=== PATIENT | female | born 1930 | race Caucasian/White ===

== ENCOUNTER 2016-12-21 04:37 | Inpatient (IN) | payer MEDICARE ==
[2016-12-21] MEDS ORDERED: Sodium Chloride 0.9% 500 ML IV ONE ×2 (04:58→10:55)
[2016-12-21] MEDS ORDERED: Sodium Chloride 0.9% 1,000 ML IV ONE (05:59)
--- NOTE | 2016-12-21 07:05 | ER ---
DATE SEEN: 12/21/2016 CHIEF COMPLAINT: Diarrhea. HISTORY OF PRESENT ILLNESS: This is an 86-year-old female who has had diarrhea since yesterday afternoon, several times a day with no blood in the stool, also associated with dry heaving and retching, but no obvious vomiting. She was previously in her usual state of health. She denies eating outside home, though, she has been getting TV dinners. She has noted no recent fever or chills and no recent antibiotic use in the last 90 days. PAST MEDICAL HISTORY: Hypertension, type 2 diabetes, and MS. REVIEW OF SYSTEMS: All other systems were unremarkable. MEDICATIONS: Unable to obtain a complete list. PHYSICAL EXAMINATION: VITAL SIGNS: Her blood pressure is normal. Her pulse is 102 and temp 98.6. ENT: Negative. Dry mucous membranes. CHEST: Clear. ABDOMEN: Soft. Some tenderness was noted in the right lower quadrant. LABORATORY DATA: Initial white cell count 20,000. The electrolytes are pending. A stool C. diff is pending. IMPRESSION: Acute gastroenteritis. PLAN: I gave her 1 L of normal saline bolus and additional 500 mL, as we wait for the electrolytes and C. diff, and Dr. Luther will take over care at 0700 hours. Time seen 0600 hours. /[id number] ESTHER/BLOSSOM
[2016-12-21] MEDS ORDERED: Ondansetron 4 MG/2 ML SDV IVPUSH ONE (08:41)
--- NOTE | 2016-12-21 08:50 | EDM.PDOC ---
ED HPI GENERAL MEDICAL PROBLEM - General Chief Complaint: Gastrointestinal Problem Stated Complaint: ABD PAIN Time Seen by Provider: 12/21/16 08:20 Source of Information: Reports: Patient, Old Records, RN History Limitations: Reports: No Limitations - History of Present Illness INITIAL COMMENTS - FREE TEXT/NARRATIVE: 86 yo female came to the ER in the middle of the night and was seen and evaluated by Dr. Chu. Her initial complaint was diarrhea. There was no reported fever. She has nausea and no vomiting. Since her arrival until the present has been unable to provider additional stool for testing. She has no uinary sx's. No rash. No cough. Onset: Today Onset Date: 12/21/16 Onset Time: 03:00 Duration: Hour(s): Location: Reports: Abdomen (no pain) Severity: Moderate Improves with: Reports: None Worsens with: Reports: None Context: Reports: Other (unknown) Associated Symptoms: Reports: Nausea/Vomiting (no vomiting yet), Weakness. 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) (none) - Related Data Allergies Allergy/AdvReac Type Severity Reaction Status Date / Time No Known Allergies Allergy Verified 12/21/16 04:49 Home Meds: Home Meds Amitriptyline [Elavil] 10 mg PO BEDTIME 12/21/16 [History] Amitriptyline [Elavil] 10 mg PO BEDTIME PRN 12/21/16 [History] Aspirin [Ecotrin] 325 - 650 mg PO DAILY PRN 12/21/16 [History] Aspirin [Ecotrin] 325 mg PO DAILY 12/21/16 [History] Insulin Lispro Prot/Lispro [HumaLOG Mix 75-25] 40 units SUBCUT BIDMEALS [History] Lisinopril/Hydrochlorothiazide [Lisinopril-Hctz 20-12.5 mg Tab] 2 tab PO DAILY 12/21/16 [History] Multivitamin [One Daily] 1 tab PO DAILY 12/21/16 [History] amLODIPine [Norvasc] 5 mg PO DAILY 12/21/16 [History] Past Medical History HEENT History: Reports: Cataract, Hard of Hearing Cardiovascular History: Reports: High Cholesterol, Hypertension, SOB on Exertion 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: Neurological History: Reports: MS Endocrine/Metabolic History: Reports: Diabetes, Type II, Obesity/BMI 30+ - Past Surgical History HEENT Surgical History: Reports: Cataract Surgery Other HEENT Surgeries/Procedures: B/L cataract surgery in 2014 Social & Family History - Family History Family Medical History: Noncontributory - Tobacco Use Smoking Status *Q: Former Smoker Years of Tobacco use: 30 Used Tobacco, but Quit: Yes Month Tobacco Last Used: "college" - Caffeine Use Caffeine Use: Reports: Coffee - Alcohol Use Days Per Week of Alcohol Use: 0 - Recreational Drug Use Recreational Drug Use: No ED ROS GENERAL - Review of Systems Review Of Systems: See Below Constitutional: Reports: Weakness. Denies: Fever HEENT: Reports: No Symptoms Respiratory: Reports: No Symptoms Cardiovascular: Reports: No Symptoms Endocrine: Reports: No Symptoms GI/Abdominal: Reports: Diarrhea, Nausea. Denies: Abdominal Pain, Black Stool, Bloody Stool, Constipation, Distension, Flatus, Hematemesis, Hematochezia, Melena, Vomiting : Reports: No Symptoms Musculoskeletal: Reports: No Symptoms Skin: Reports: No Symptoms Neurological: Reports: No Symptoms Psychiatric: Reports: No Symptoms ED EXAM, GI/ABD - Physical Exam Exam: See Below Exam Limited By: No Limitations General Appearance: Alert, WD/WN, No Apparent Distress, Obese Eyes: Bilateral: Normal Appearance, EOMI Ears: Normal External Exam, Normal Canal, Hearing Grossly Normal Nose: Normal Inspection, Normal Mucosa, No Blood Throat/Mouth: Normal Inspection, Normal Lips, Normal Oropharynx, Normal Voice, No Airway Compromise Head: Atraumatic, Normocephalic Neck: Normal Inspection Respiratory/Chest: No Respiratory Distress, Lungs Clear, Normal Breath Sounds, No Accessory Muscle Use Cardiovascular: Regular Rate, Rhythm, No Edema GI/Abdominal Exam: Normal Bowel Sounds, Soft, Non-Tender, No Distention Back Exam: Normal Inspection. No: CVA Tenderness (R), CVA Tenderness (L) Extremities: Normal Inspection, Normal Range of Motion, Non-Tender, Pedal Edema (trace to both LE's below the knees.) Neurological: Alert, Oriented, CN II-XII Intact, Normal Cognition, No Motor/ Sensory Deficits Psychiatric: Normal Affect, Normal Mood Skin Exam: Warm, Dry, Intact, Normal Color, No Rash Lymphatic: No Adenopathy Course - Vital Signs Last Recorded V/S: Last Vital Signs Temp 36.6 C 12/21/16 18:27 Pulse 94 12/21/16 18:27 Resp 20 12/21/16 18:27 BP 140/85 12/21/16 18:27 Pulse Ox 94 L 12/21/16 18:27 - Orders/Labs/Meds Orders: Active Orders 24 hr Category Date Time Status CDIFF TOXIN A+B GROUP [OP] Stat Lab 12/21/16 05:17 Uncollected CULTURE BLOOD [BC] Urgent Lab 12/21/16 09:15 Received CULTURE BLOOD [BC] Urgent Lab 12/21/16 09:25 Results UA W/MICROSCOPIC [URIN] Stat Lab 12/21/16 08:45 Uncollected Sodium Chloride 0.9% [Normal Saline] 1,000 ml Med 12/21/16 13:30 Active IV ASDIRECTED Sodium Chloride 0.9% [Saline Flush] Med 12/21/16 13:50 Active 10 ml FLUSH ASDIRECTED PRN Blood Culture x2 Reflex Set [OM.PC] Urgent Oth 12/21/16 08:39 Ordered Saline Lock Insert [OM.PC] Routine Oth 12/21/16 13:50 Ordered Medication Orders Acetaminophen (Tylenol) 650 mg PO Q4H PRN PRN Reason: Pain (Mild 1-3)/fever Amitriptyline HCl (Elavil) 10 mg PO BEDTIME PRN PRN Reason: nerve pain Amlodipine Besylate (Norvasc) 5 mg PO DAILY [facility] Aspirin (Ecotrin) 325 mg PO DAILY [facility] Sodium Chloride (Normal Saline) 1,000 mls @ 500 mls/hr IV ASDIRECTED [facility] Last Admin: 12/21/16 13:50 Dose: 500 mls/hr Ciprofloxacin/Dextrose 400 mg/ (Premix) 200 mls @ 200 mls/hr IV Q24H [facility] Last Admin: 12/21/16 19:39 Dose: 200 mls/hr Metronidazole 500 mg/ Premix 100 mls @ 100 mls/hr IV Q8H [facility] Last Admin: 12/21/16 18:14 Dose: 100 mls/hr Sodium Chloride (Normal Saline) 1,000 mls @ 125 mls/hr IV ASDIRECTED [facility] Last Admin: 12/21/16 18:08 Dose: 125 mls/hr Sodium Chloride (Normal Saline) 1,000 mls @ 125 mls/hr IV ASDIRECTED [facility] Insulin Aspart (Novolog) 0 unit SUBCUT TIDMEALS [facility] Morphine Sulfate (Morphine) 2 mg IVPUSH Q2H PRN PRN Reason: Pain (severe 7-10) Oxycodone HCl (Oxycodone) 5 mg PO Q4H PRN PRN Reason: Pain (moderate 4-6) Sodium Chloride (Saline Flush) 10 ml FLUSH ASDIRECTED PRN PRN Reason: Keep Vein Open Last Admin: 12/21/16 13:51 Dose: 10 ml Sodium Chloride (Saline Flush) 10 ml FLUSH ASDIRECTED PRN PRN Reason: Keep Vein Open Labs: Laboratory Tests 12/21/16 12/21/16 12/21/16 Range/Units 05:20 05:25 05:25 WBC 20.1 H (4.5-12.0) X10-3/uL RBC 4.63 (3.23-5.20) x10(6)uL Hgb 13.8 (11.5-15.5) g/dL Hct 40.8 (30.0-51.3) % MCV 88.2 (80-96) fL MCH 29.8 (27.7-33.6) pg MCHC 33.8 (32.2-35.4) g/dL RDW 12.2 (11.5-15.5) % Plt Count 264 (125-369) X10(3)uL MPV 7.4 (7.4-10.4) fL Add Manual Diff Yes Neutrophils % (Manual) 90 H (46-82) % Band Neutrophils % 1 (0-6) % Lymphocytes % (Manual) 7 L (13-37) % Monocytes % (Manual) 2 L (4-12) % D-Dimer, Quantitative > 5000 H (100-400) ng/mL Sodium 136 (135-145) mmol/L Potassium 5.0 (3.5-5.3) mmol/L Chloride 104 (100-110) mmol/L Carbon Dioxide 20 L (23-29) mmol/L BUN 42 H (8-23) mg/dL Creatinine 2.1 H* (0.6-1.3) mg/dL Est Cr Clr Drug Dosing 14.93 mL/min Estimated GFR (MDRD) 22 L (>60) BUN/Creatinine Ratio 20.0 (9-20) Glucose 245 H (80-116) mg/dL Lactic Acid (0.5-2.2) mmol/L Calcium 9.2 (8.6-10.2) mg/dL Total Bilirubin 0.8 (0.1-1.3) mg/dL AST 31 H (5-27) IU/L ALT 31 H (14-26) IU/L Alkaline Phosphatase 51 L (56-112) IU/L Total Protein 7.1 (6.0-8.0) g/dL Albumin 3.7 (3.2-4.6) g/dL Globulin 3.4 g/dL Albumin/Globulin Ratio 1.1 12/21/16 12/21/16 12/21/16 Range/Units 09:25 10:20 12:55 WBC (4.5-12.0) X10-3/uL RBC (3.23-5.20) x10(6)uL Hgb (11.5-15.5) g/dL Hct (30.0-51.3) % MCV (80-96) fL MCH (27.7-33.6) pg MCHC (32.2-35.4) g/dL RDW (11.5-15.5) % Plt Count (125-369) X10(3)uL MPV (7.4-10.4) fL Add Manual Diff Neutrophils % (Manual) (46-82) % Band Neutrophils % (0-6) % Lymphocytes % (Manual) (13-37) % Monocytes % (Manual) (4-12) % D-Dimer, Quantitative (100-400) ng/mL Sodium (135-145) mmol/L Potassium (3.5-5.3) mmol/L Chloride (100-110) mmol/L Carbon Dioxide (23-29) mmol/L BUN (8-23) mg/dL Creatinine 1.9 H 1.8 H (0.6-1.3) mg/dL Est Cr Clr Drug Dosing 16.50 17.41 mL/min Estimated GFR (MDRD) 25 L 27 L (>60) BUN/Creatinine Ratio (9-20) Glucose (80-116) mg/dL Lactic Acid 1.6 (0.5-2.2) mmol/L Calcium (8.6-10.2) mg/dL Total Bilirubin (0.1-1.3) mg/dL AST (5-27) IU/L ALT (14-26) IU/L Alkaline Phosphatase (56-112) IU/L Total Protein (6.0-8.0) g/dL Albumin (3.2-4.6) g/dL Globulin g/dL Albumin/Globulin Ratio Meds: Medications Generic Name Dose Route Start Last Admin Trade Name Freq PRN Reason Stop Dose Admin Acetaminophen 650 mg 12/21/16 16:18 Tylenol PO Q4H PRN Pain (Mild 1-3)/fever Amitriptyline HCl 10 mg 12/21/16 19:55 Elavil PO BEDTIME PRN nerve pain Amlodipine Besylate 5 mg 12/22/16 09:00 Norvasc PO DAILY [facility] Aspirin 325 mg 12/22/16 09:00 Ecotrin PO DAILY [facility] Sodium Chloride 1,000 mls @ 500 mls/hr 12/21/16 13:30 12/21/16 13:50 Normal Saline IV 500 mls/hr ASDIRECTED J[facility]ETTE Administration Ciprofloxacin/Dextrose 400 mg/ 200 mls @ 200 mls/hr 12/21/16 18:00 12/21/16 19:39 Premix IV 200 mls/hr Q24H [facility] Administration Metronidazole 500 mg/ Premix 100 mls @ 100 mls/hr 12/21/16 16:30 12/21/16 18: 14 IV 100 mls/hr Q8H [facility] Administration Sodium Chloride 1,000 mls @ 125 mls/hr 12/21/16 16:30 12/21/16 18:08 Normal Saline IV 125 mls/hr ASDIRECTED [facility]TE Administration Sodium Chloride 1,000 mls @ 125 mls/hr 12/21/16 20:00 Normal Saline IV ASDIRECTED [facility] Insulin Aspart 0 unit 12/21/16 20:00 Novolog SUBCUT TIDMEALS [facility] Morphine Sulfate 2 mg 12/21/16 16:18 Morphine IVPUSH Q2H PRN Pain (severe 7-10) Oxycodone HCl 5 mg 12/21/16 16:18 Oxycodone PO Q4H PRN Pain (moderate 4-6) Sodium Chloride 10 ml 12/21/16 13:50 12/21/16 13:51 Saline Flush FLUSH 10 ml ASDIRECTED PRN Administration Keep Vein Open Sodium Chloride 10 ml 12/21/16 16:18 Saline Flush FLUSH ASDIRECTED PRN Keep Vein Open Discontinued Medications Generic Name Dose Route Start Last Admin Trade Name Bobbi PRN Reason Stop Dose Admin Sodium Chloride 500 mls @ 999 mls/hr 12/21/16 04:58 12/21/16 05:28 Normal Saline IV 12/21/16 05:28 999 mls/hr .BOLUS ONE Administration Sodium Chloride 1,000 mls @ 999 mls/hr 12/21/16 05:59 12/21/16 06:00 Normal Saline IV 12/21/16 06:59 999 mls/hr .BOLUS ONE Administration Sodium Chloride 1,000 mls @ 999 mls/hr 12/21/16 10:15 12/21/16 10:25 Normal Saline IV 150 mls/hr ASDIRECTED JULIETTE Administration Sodium Chloride 500 mls @ 1,000 mls/hr 12/21/16 10:55 12/21/16 11:11 Normal Saline IV 12/21/16 11:24 Not Given .BOLUS ONE Iopamidol 75 ml 12/21/16 13:43 12/21/16 13:45 Isovue-370 (76%) IV 12/21/16 13:44 75 ml ONETIME ONE Administration Ondansetron HCl 4 mg 12/21/16 08:41 12/21/16 08:46 Zofran IVPUSH 12/21/16 08:42 4 mg ONETIME ONE Administration Ondansetron HCl 4 mg 12/21/16 16:18 Zofran Odt PO Q4H PRN nausea, able to take PO - Radiology Interpretation Free Text/Narrative:: CXR-L base atelectasis, small pleural effusion, cannot R/O pneumonia or PE CT Results Date: 12/21/16 Departure - Departure Time of Disposition: 17:30 Disposition: Admitted As Inpatient 65 Condition: Fair Clinical Impression: Colitis, Elevated d-dimer Diarrhea Qualifiers: Diarrhea type: unspecified type Qualified Code(s): R19.7 - Diarrhea, unspecified Chronic renal failure Qualifiers: Chronic kidney disease stage: unspecified stage Qualified Code(s): N18.9 - Chronic kidney disease, unspecified - Discharge Information - My Orders Last 24 Hours: My Active Orders 12/21/16 08:39 Blood Culture x2 Reflex Set [OM.PC] Urgent 12/21/16 08:45 UA W/MICROSCOPIC [URIN] Stat 12/21/16 09:15 CULTURE BLOOD [BC] Urgent 12/21/16 09:25 CULTURE BLOOD [BC] Urgent 12/21/16 13:30 Sodium Chloride 0.9% [Normal Saline] 1,000 ml IV ASDIRECTED 12/21/16 13:50 Sodium Chloride 0.9% [Saline Flush] 10 ml FLUSH ASDIRECTED PRN Saline Lock Insert [OM.PC] Routine - Assessment/Plan Last 24 Hours: My Active Orders 12/21/16 08:39 Blood Culture x2 Reflex Set [OM.PC] Urgent 12/21/16 08:45 UA W/MICROSCOPIC [URIN] Stat 12/21/16 09:15 CULTURE BLOOD [BC] Urgent 12/21/16 09:25 CULTURE BLOOD [BC] Urgent 12/21/16 13:30 Sodium Chloride 0.9% [Normal Saline] 1,000 ml IV ASDIRECTED 12/21/16 13:50 Sodium Chloride 0.9% [Saline Flush] 10 ml FLUSH ASDIRECTED PRN Saline Lock Insert [OM.PC] Routine
[2016-12-21] MEDS ORDERED: Sodium Chloride 0.9% 1,000 ML IV SCH ×2 (10:15→13:30)
--- NOTE | 2016-12-21 10:26 | CR ---
INDICATION: Leukocytosis, mild hypoxia. CHEST (2 views): AP and lateral views of the chest were obtained portable and revealed evidence of exogenous obesity. The heart appears enlarged with LVE. No definite CHF is seen. Infiltrate and/or atelectasis and possibly pleuritis are suggested at the left lower lobe and lingula - particularly the lingula. Slightly heavy markings medially at the right lung base are noted of questionable significance. Flattening of diaphragm leaves, prominent AP diameter, and hyperaeration all suggest COPD. The aorta is tortuous with calcification in the arch. Diminished bone density is noted compatible with osteoporosis. Accentuated dorsal kyphosis upper thoracic spine noted. IMPRESSION: 1. Findings are compatible with pneumonia and pleuritis, possibly some atelectasis at the left lung base - lower lung field, mostly involving the lingula, but also felt to be present in the lower lobe. 2. Difficult to exclude minimal patchy pneumonia at the right medial lung base. 3. COPD. 4. ASHD with probable LVE. 5. Osteoporosis with kyphosis. 6. Exogenous obesity. Report was called to Dr. Luther at 0926 hours, 12/31/2016. [facility]
[2016-12-21] MEDS ORDERED: Iopamidol 755 Mg/ML 75 ML Bottle IV ONE (13:43)
[2016-12-21] MEDS: Sodium Chloride 0.9% 10 ML Syringe FLUSH PRN (13:51)
--- NOTE | 2016-12-21 15:23 | CT ---
INDICATION: High D-dimer 5,000, mild hypoxia. Abnormal chest x-ray, question PE. COMPUTERIZED TOMOGRAPHY ANGIOGRAPHY OF THE CHEST WITH CONTRAST FOR PULMONARY ARTERIES: Spiral 1.25-mm axial sections were obtained through the chest, abdomen, and pelvis, with oral and IV contrast (75 mL Isovue-370 at 3 mL per second), with sagittal and coronal reconstructions, 12/21/2016. No comparisons were available. Total Exam DLP = 2669.05 mGy-cm. Less than ideal opacification of the pulmonary arteries is obtained. However, no evidence of pulmonary embolus could be identified. There is a spiculated area of infiltration in the right upper lobe, likely due to focal pneumonia, but should be followed to clearing as neoplasia is difficult to entirely exclude. Patchy areas of infiltrate are also noted scattered about the left upper lobe and may represent areas of interstitial pneumonia and/or pulmonary edema. A similar appearance is noted in the lower lobes bilaterally, with some additional heavy markings in the lingula and middle lobe, which could be fibrotic and/or atelectatic. Another focal area of infiltration is noted in the right lower lobe, seen on axial image #109 and again this could represent a more focal area of pneumonia or even neoplasia. Again, follow-up to clearing is recommended. Calcifications are noted in the aorta, coronary arteries, and brachiocephalic arteries. The heart appeared somewhat enlarged. IMPRESSION: 1. Focal areas of infiltrate scattered about the lungs, most likely pneumonia, but cannot exclude CHF with acute pulmonary edema and possibly minimal interstitial lung edema. Findings should be correlated clinically with follow- up to clearing of these findings, as a few areas of infiltrate are slightly suspicious for neoplasia in the right lung. 2. ASHD with cardiomegaly and ASD aorta, as well as brachiocephalic vessels. 3. No evidence of pulmonary embolus was identified. INDICATION: Strong family history of pancreatic CA, high D-dimer, diarrhea. CT ABDOMEN AND PELVIS WITH CONTRAST: Examination of the abdomen and pelvis was obtained by CT as noted above. The gallbladder and appendix are absent, compatible with history of their removal. Diverticulosis coli is noted sigmoid/rectosigmoid area, without definite evidence of diverticulitis. No evidence of free air or obstruction was seen. There is thickening of the wall of the descending colon with a mild degree of pericolonic fat stranding, which suggests a significant degree of colitis, Crohn 's versus infectious. Some minimal free fluid in the pericolonic space is noted , in the distal descending area. No definite abscess formation was identified. The liver is unremarkable. The spleen appeared normal. The common bile duct was dilated, but normal in caliber for post cholecystectomy patient. The pancreas appears grossly normal with some fatty replacement suggested. The kidneys showed evidence of renal cortical scarring bilaterally, with a few probable benign cystic structures of small size bilaterally also noted. No significant retroperitoneal mass could be identified. Minimal retroperitoneal lymphadenopathy is noted, which is nonspecific. Calcifications are noted in the abdominal aorta, origins of the renal arteries especially the right origin of the celiac axis and superior mesenteric artery, with calcifications also noted in the iliac and femoral arteries. Degenerative changes and disk disease are noted at L5-S1 with vacuum disk phenomenon. Degenerative changes are noted in the mid to lower thoracic spine. No additional organomegaly, mass lesions, or free fluid collections were identified in the abdomen or pelvis. IMPRESSION: 1. Findings compatible with severe colitis are noted in the descending colon area, with pericolonic inflammatory process suggested, there being moderately extensive pericolonic fat stranding present, extending through the retrocolic gutter and into the upper middle pelvis area. 2. ASD. 3. Renal cortical scarring and minimal cysts. 4. Post cholecystectomy. 5. Post appendectomy. 6. Degenerative changes and disk disease L5-S1. CT PELVIS: Examination of the pelvis was obtained by CT, as noted above, and revealed evidence of diverticulosis, without definite evidence of diverticulitis in the sigmoid/rectosigmoid area. There is suggestion of a right inguinal hernia, including only fat. Descending colonic inflammation is noted extending into the upper pelvis. Report was called to Dr. Luther at 1409 hours, 12/21/2016. [facility]
[2016-12-21] MEDS ORDERED: Acetaminophen 325 MG Tab PO PRN (16:18)
[2016-12-21] MEDS ORDERED: Ondansetron 4 MG Tab.DIS PO PRN (16:18)
[2016-12-21] MEDS ORDERED: oxyCODONE 5 MG Tab PO PRN (16:18)
[2016-12-21] MEDS ORDERED: Sodium Chloride 0.9% 10 ML Syringe FLUSH PRN (16:18)
[2016-12-21] MEDS ORDERED: Morphine 2 MG/ML Syringe IVPUSH PRN (16:18)
[2016-12-21] MEDS ORDERED: Ciprofloxacin in D5W 400 MG in Premix Bag 1 BAG IV SCH ×2 (18:00)
[2016-12-21] MEDS: Sodium Chloride 0.9% 1,000 ML IV SCH (18:08)
[2016-12-21] MEDS: metroNIDAZOLE/Normal Saline 500 MG in Premix Bag 1 BAG IV SCH (18:14)
--- NOTE | 2016-12-21 19:47 | PCM.HP ---
H&P History of Present Illness - General Date of Service: 12/21/16 Admit Problem/Dx: Admission Diagnosis/Problem Admission Diagnosis/Problem Colitis presumed to be due to infection - History of Present Illness Initial Comments - Free Text/Narative: Patient is a 86-year-old female who is in remarkably good health for her age. She was feeling fairly well yesterday and went to [facility] to do some grocery shopping. When she came home she had profuse explosive diarrhea. She had watery stool with no blood, no mucus, mild abdominal cramping and pain, no nausea or vomiting. She felt weak and shaky. She had no fevers or chills. No chest pain, no shortness of breath, and had not been ill before this. She had no other pain and had had no upper respiratory symptoms. No lower respiratory symptoms. The diarrhea lasted until she came into the emergency department early this morning. She had no further stools today in the emergency department. Initial labs showed a d-dimer of greater than 5000 and a lactic acid of 1.6. The emergency room physician was concerned about the potential for blood clot so hydrated her and did a CT scan of the chest, abdomen, pelvis. This showed focal areas of infiltrate scattered about the lungs, possibly pneumonia or CHF. He did recommend that these be followed long-term because there was some potential concern for neoplasia. It also showed ASHD with cardiomegaly and ASD aorta as well as brachiocephalic vessels and no evidence of pulmonary embolus. The abdominal CT showed severe colitis noted in the descending colon with pericolonic inflammatory process suggested and moderately extensive pericolonic fat stranding present extending through the retrocolic gutter and into the upper middle pelvis area. There was also suggestion of a right inguinal hernia including only fat. At the time I saw the patient, she was actually fairly asymptomatic. She had no further diarrhea, no cramping. Was wondering if she could go home on oral medication. Past medical history: #1 multiple sclerosis, currently on no medications. #2 hypertension. #3 diabetes mellitus type 2, on Humalog mix 75/25. #4 right myocardial infarction 35 years ago. #5 hyperlipidemia which the patient has stopped treating because of her age. #6 morbid obesity. Social history: Patient lives at [facility] [address] alone. She is . She has one son who lives in [place]. 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 Family history: The patient's mother of CHF at 83. The patient's father of colon cancer 83. The patient had 5 siblings. She is the only one left. - Related Data Allergies/Adverse Reactions: Allergies Allergy/AdvReac Type Severity Reaction Status Date / Time No Known Allergies Allergy Verified 12/21/16 04:49 Home Medications: Home Meds Amitriptyline [Elavil] 10 mg PO BEDTIME 12/21/16 [History] Amitriptyline [Elavil] 10 mg PO BEDTIME PRN 12/21/16 [History] Aspirin [Ecotrin] 325 - 650 mg PO DAILY PRN 12/21/16 [History] Aspirin [Ecotrin] 325 mg PO DAILY 12/21/16 [History] Insulin Lispro Prot/Lispro [HumaLOG Mix 75-25] 40 units SUBCUT BIDMEALS [History] Lisinopril/Hydrochlorothiazide [Lisinopril-Hctz 20-12.5 mg Tab] 2 tab PO DAILY 12/21/16 [History] Multivitamin [One Daily] 1 tab PO DAILY 12/21/16 [History] amLODIPine [Norvasc] 5 mg PO DAILY 12/21/16 [History] Past Medical History HEENT History: Reports: Cataract, Hard of Hearing Cardiovascular History: Reports: High Cholesterol, Hypertension, SOB on Exertion 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: Neurological History: Reports: MS Endocrine/Metabolic History: Reports: Diabetes, Type II, Obesity/BMI 30+ - Past Surgical History HEENT Surgical History: Reports: Cataract Surgery Other HEENT Surgeries/Procedures: B/L cataract surgery in 2014 Social & Family History - Family History Family Medical History: Noncontributory - Tobacco Use Smoking Status *Q: Former Smoker Years of Tobacco use: 30 Used Tobacco, but Quit: No Month Tobacco Last Used: "college" Second Hand Smoke Exposure: No - Caffeine Use Caffeine Use: Reports: None - Alcohol Use Days Per Week of Alcohol Use: 0 - Recreational Drug Use Recreational Drug Use: No H&P Review of Systems - Review of Systems: Review Of Systems: ROS reveals no pertinent complaints other than HPI. Exam - Exam Exam: See Below - Vital Signs Vital Signs: Last Vital Signs Temp 36.6 C 12/21/16 18:27 Pulse 94 12/21/16 18:27 Resp 20 12/21/16 18:27 BP 140/85 12/21/16 18:27 Pulse Ox 94 L 12/21/16 18:27 Weight: 100.788 kg - Exam General: Alert, Oriented, Cooperative HEENT: PERRLA, Mucosa Moist & [place], Posterior Pharynx Clear, TMs Clear Neck: Supple Lungs: Clear to Auscultation, Normal Respiratory Effort Cardiovascular: Regular Rate, Regular Rhythm, Normal S1, Normal S2 GI/Abdominal Exam: Normal Bowel Sounds, Soft, Tender (Diffusely tender but most tenderness was in the left lower quadrant.) Back Exam: Normal Inspection Extremities: Pedal Edema (Trace pedal edema.) Neuro Extensive - Mental Status: Alert, Oriented x3 Psychiatric: Alert, Normal Affect, Normal Mood - Patient Data Result Diagrams: 12/21/16 05:25 12/21/16 12:55 *Q Meaningful Use (ADM) - VTE *Q VTE Criteria *Q: - Stroke *Q Stroke Criteria *Q: - AMI *Q AMI Criteria *Q: - Problem List (1) Colitis SNOMED Code(s): 82972867 ICD Code: K52.9 - NONINFECTIVE GASTROENTERITIS AND COLITIS, UNSPECIFIED Status: Acute Current Visit: Yes Problem Details: Infectious versus ischemic. I am concerned about the possibility of ischemic colitis. The patient' s CT scan seems out of proportion with the patient's symptoms. I'm going to admit the patient, keep her on clear liquids, IV antibiotics with Flagyl and Cipro, and see how she does clinically. With no blood in the stool, ischemic colitis is less likely. However her lack of pain seems less consistent with ischemic colitis which is typically pain out of proportion with examination. (2) CKD stage 3 due to type 2 diabetes mellitus SNOMED Code(s): 260159937465 ICD Code: E11.22 - TYPE 2 DIABETES MELLITUS W DIABETIC CHRONIC KIDNEY DISEASE ; N18.3 - CHRONIC KIDNEY DISEASE, STAGE 3 (MODERATE) Status: Acute Current Visit: Yes Problem Details: Patient received high IV contrast load today. We' ll recheck renal function in the morning. Continue fluids IV tonight. We will do sliding scale insulin until she is eating again. (3) Elevated d-dimer SNOMED Code(s): 531492401 ICD Code: R79.89 - OTHER SPECIFIED ABNORMAL FINDINGS OF BLOOD CHEMISTRY Status: Acute Current Visit: Yes Problem Details: May be related to inflammation of the bowel rather than clotting. No evidence of lower extremity DVT. Monitor. (4) DVT prophylaxis SNOMED Code(s): 373363882 ICD Code: [id number] - Status: Acute Current Visit: Yes Problem Details: Hold drugs until a.m. SCDs tonight. Problem List Initiated/Reviewed/Updated: Yes Orders Last 24hrs: Active Orders 24 hr Category Date Time Status Ciprofloxacin in D5W [Cipro in D5W 400 MG/200 ML] 400 Med 12/21/16 18:00 Active mg Premix Bag 1 bag IV Q24H Sodium Chloride 0.9% [Normal Saline] 1,000 ml Med 12/21/16 16:30 Active IV ASDIRECTED metroNIDAZOLE/Normal Saline [Flagyl 500 MG in NS 100 ML Med 12/21/16 16:30 Active ] 500 mg Premix Bag 1 bag IV Q8H Medication Orders Acetaminophen (Tylenol) 650 mg PO Q4H PRN PRN Reason: Pain (Mild 1-3)/fever Sodium Chloride (Normal Saline) 1,000 mls @ 500 mls/hr IV ASDIRECTED [facility] Last Admin: 12/21/16 13:50 Dose: 500 mls/hr Ciprofloxacin/Dextrose 400 mg/ (Premix) 200 mls @ 200 mls/hr IV Q24H [facility] Last Admin: 12/21/16 19:39 Dose: 200 mls/hr Metronidazole 500 mg/ Premix 100 mls @ 100 mls/hr IV Q8H [facility] Last Admin: 12/21/16 18:14 Dose: 100 mls/hr Sodium Chloride (Normal Saline) 1,000 mls @ 125 mls/hr IV ASDIRECTED [facility] Last Admin: 12/21/16 18:08 Dose: 125 mls/hr Morphine Sulfate (Morphine) 2 mg IVPUSH Q2H PRN PRN Reason: Pain (severe 7-10) Oxycodone HCl (Oxycodone) 5 mg PO Q4H PRN PRN Reason: Pain (moderate 4-6) Sodium Chloride (Saline Flush) 10 ml FLUSH ASDIRECTED PRN PRN Reason: Keep Vein Open Last Admin: 12/21/16 13:51 Dose: 10 ml Sodium Chloride (Saline Flush) 10 ml FLUSH ASDIRECTED PRN PRN Reason: Keep Vein Open
[2016-12-21] MEDS ORDERED: Amitriptyline 10 MG Tab PO PRN (19:55)
[2016-12-21] MEDS: Insulin Aspart 100 Units/ML 3 ML Pen SUBCUT SCH (20:33)
[2016-12-22] MEDS: metroNIDAZOLE/Normal Saline 500 MG in Premix Bag 1 BAG IV SCH ×3 (00:25→16:44)
[2016-12-22] MEDS: Sodium Chloride 0.9% 1,000 ML IV SCH ×2 (05:12→13:58)
[2016-12-22] MEDS: amLODIPine 5 MG Tab PO SCH (09:10)
[2016-12-22] MEDS: Insulin Aspart 100 Units/ML 3 ML Pen SUBCUT SCH ×3 (09:10→18:08)
[2016-12-22] MEDS: Aspirin 325 MG Tab.EC PO SCH (09:10)
--- NOTE | 2016-12-22 12:33 | PCM.PN ---
- General Info Date of Service: 12/22/16 Subjective Update: Patient is an 86-year-old female currently on hospital day #2 for colitis, favor infectious etiology. She is feeling fine today. No chest pain, no nausea, no vomiting, no diarrhea, no shortness of breath. She doesn't have an appetite yet. She is on clear liquids and tolerating this well. 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 Her chest CT yesterday showed patchy infiltrates that were suggestive of infectious etiology but recommendation was made to follow up in 2- [address] for clearing. Discussed that with the patient today ( see below). White count is 22,000 this morning which is slightly up from yesterday. Functional Status: Reports: Pain Controlled, Tolerating Diet, Ambulating, Urinating - Patient Data Vitals - Most Recent: Last Vital Signs Temp 36.8 C 12/22/16 09:00 Pulse 84 12/22/16 09:00 Resp 22 H 12/22/16 09:00 BP 116/49 L 12/22/16 09:10 Pulse Ox 94 L 12/22/16 09:00 Weight - Most Recent: 102.421 kg I&O - Last 24 Hours: Intake & Output 12/21/16 12/22/16 12/22/16 22:59 06:59 14:59 Intake Total 380 50 Output Total 150 Balance 380 -100 Lab Results Last 24 Hours: Laboratory Results - last 24 hr 12/21/16 12/22/16 12/22/16 Range/Units 21:28 03:15 06:35 WBC 22.4 H (4.5-12.0) X10-3/uL RBC 3.56 (3.23-5.20) x10(6)uL Hgb 11.2 L (11.5-15.5) g/dL Hct 31.4 (30.0-51.3) % MCV 88.3 (80-96) fL MCH 31.4 (27.7-33.6) pg MCHC 35.6 H (32.2-35.4) g/dL RDW 12.5 (11.5-15.5) % Plt Count 202 (125-369) X10(3)uL MPV 7.5 (7.4-10.4) fL Add Manual Diff Yes Neutrophils % (Manual) 86 H (46-82) % Lymphocytes % (Manual) 9 L (13-37) % Monocytes % (Manual) 5 (4-12) % Sodium (135-145) mmol/L Potassium (3.5-5.3) mmol/L Chloride (100-110) mmol/L Carbon Dioxide (23-29) mmol/L BUN (8-23) mg/dL Creatinine (0.6-1.3) mg/dL Est Cr Clr Drug Dosing mL/min Estimated GFR (MDRD) (>60) BUN/Creatinine Ratio (9-20) Glucose (80-116) mg/dL POC Glucose 324 H (80-116) mg/dL Calcium (8.6-10.2) mg/dL Total Bilirubin (0.1-1.3) mg/dL AST (5-27) IU/L ALT (14-26) IU/L Alkaline Phosphatase (56-112) IU/L Total Protein (6.0-8.0) g/dL Albumin (3.2-4.6) g/dL Globulin g/dL Albumin/Globulin Ratio Urine Color Yellow (YELLOW) Urine Appearance Slightly cloudy (CLEAR) Urine pH 5.0 (5.0-6.5) Ur Specific [place] 1.020 (1.010-1.025) Urine Protein Negative (NEGATIVE) mg/dL Urine Glucose (UA) 100 H (NEGATIVE) mg/dL Urine Ketones Negative (NEGATIVE) mg/dL Urine Occult Blood Moderate H (NEGATIVE) Urine Nitrite Negative (NEGATIVE) Urine Bilirubin Negative (NEGATIVE) Urine Urobilinogen Normal (NEGATIVE) mg/dL Ur Leukocyte Esterase Small H (NEGATIVE) Urine RBC 5-10 (0) Urine WBC 0-5 (0) Ur Squamous Epith Cells Few H (NS,R,O) Urine Bacteria Few H (NS) 12/22/16 12/22/16 12/22/16 Range/Units 06:35 07:38 11:53 WBC (4.5-12.0) X10-3/uL RBC (3.23-5.20) x10(6)uL Hgb (11.5-15.5) g/dL Hct (30.0-51.3) % MCV (80-96) fL MCH (27.7-33.6) pg MCHC (32.2-35.4) g/dL RDW (11.5-15.5) % Plt Count (125-369) X10(3)uL MPV (7.4-10.4) fL Add Manual Diff Neutrophils % (Manual) (46-82) % Lymphocytes % (Manual) (13-37) % Monocytes % (Manual) (4-12) % Sodium 135 (135-145) mmol/L Potassium 4.4 (3.5-5.3) mmol/L Chloride 106 (100-110) mmol/L Carbon Dioxide 19 L (23-29) mmol/L BUN 29 H D (8-23) mg/dL Creatinine 1.6 H (0.6-1.3) mg/dL Est Cr Clr Drug Dosing 19.59 mL/min Estimated GFR (MDRD) 30 L (>60) BUN/Creatinine Ratio 18.1 (9-20) Glucose 253 H (80-116) mg/dL POC Glucose 265 H 217 H (80-116) mg/dL Calcium 7.8 L (8.6-10.2) mg/dL Total Bilirubin 0.6 (0.1-1.3) mg/dL AST 28 H (5-27) IU/L ALT 22 D (14-26) IU/L Alkaline Phosphatase 42 L (56-112) IU/L Total Protein 5.6 L (6.0-8.0) g/dL Albumin 2.8 L (3.2-4.6) g/dL Globulin 2.8 g/dL Albumin/Globulin Ratio 1.0 Urine Color (YELLOW) Urine Appearance (CLEAR) Urine pH (5.0-6.5) Ur Specific [place] (1.010-1.025) Urine Protein (NEGATIVE) mg/dL Urine Glucose (UA) (NEGATIVE) mg/dL Urine Ketones (NEGATIVE) mg/dL Urine Occult Blood (NEGATIVE) Urine Nitrite (NEGATIVE) Urine Bilirubin (NEGATIVE) Urine Urobilinogen (NEGATIVE) mg/dL Ur Leukocyte Esterase (NEGATIVE) Urine RBC (0) Urine WBC (0) Ur Squamous Epith Cells (NS,R,O) Urine Bacteria (NS) Med Orders - Current: Current Medications Acetaminophen (Tylenol) 650 mg PO Q4H PRN PRN Reason: Pain (Mild 1-3)/fever Amitriptyline HCl (Elavil) 10 mg PO BEDTIME PRN PRN Reason: nerve pain Amlodipine Besylate (Norvasc) 5 mg PO DAILY [facility] Last Admin: 12/22/16 09:10 Dose: 5 mg Aspirin (Ecotrin) 325 mg PO DAILY [facility] Last Admin: 12/22/16 09:10 Dose: 325 mg Sodium Chloride (Normal Saline) 1,000 mls @ 500 mls/hr IV ASDIRECTED [facility] Last Admin: 12/21/16 13:50 Dose: 500 mls/hr Metronidazole 500 mg/ Premix 100 mls @ 100 mls/hr IV Q8H [facility] Last Admin: 12/22/16 09:09 Dose: 100 mls/hr Sodium Chloride (Normal Saline) 1,000 mls @ 125 mls/hr IV ASDIRECTED [facility] Last Admin: 12/21/16 18:08 Dose: 125 mls/hr Sodium Chloride (Normal Saline) 1,000 mls @ 125 mls/hr IV ASDIRECTED [facility] Last Admin: 12/22/16 05:12 Dose: 125 mls/hr Levofloxacin/Dextrose 750 mg/ (Premix) 150 mls @ 100 mls/hr IV Q48H [facility] Insulin Aspart (Novolog) 0 unit SUBCUT TIDMEALS [facility] Last Admin: 12/22/16 11:56 Dose: 2 unit Morphine Sulfate (Morphine) 2 mg IVPUSH Q2H PRN PRN Reason: Pain (severe 7-10) Oxycodone HCl (Oxycodone) 5 mg PO Q4H PRN PRN Reason: Pain (moderate 4-6) Sodium Chloride (Saline Flush) 10 ml FLUSH ASDIRECTED PRN PRN Reason: Keep Vein Open Last Admin: 12/21/16 13:51 Dose: 10 ml Sodium Chloride (Saline Flush) 10 ml FLUSH ASDIRECTED PRN PRN Reason: Keep Vein Open Discontinued Medications Sodium Chloride (Normal Saline) 500 mls @ 999 mls/hr IV .BOLUS ONE Stop: 12/21/16 05:28 Last Admin: 12/21/16 05:28 Dose: 999 mls/hr Sodium Chloride (Normal Saline) 1,000 mls @ 999 mls/hr IV .BOLUS ONE Stop: 12/21/16 06:59 Last Admin: 12/21/16 06:00 Dose: 999 mls/hr Sodium Chloride (Normal Saline) 1,000 mls @ 999 mls/hr IV ASDIRECTED [facility] Last Admin: 12/21/16 10:25 Dose: 150 mls/hr Sodium Chloride (Normal Saline) 500 mls @ 1,000 mls/hr IV .BOLUS ONE Stop: 12/21/16 11:24 Last Admin: 12/21/16 11:11 Dose: Not Given Ciprofloxacin/Dextrose 400 mg/ (Premix) 200 mls @ 200 mls/hr IV Q24H [facility] Last Admin: 12/21/16 19:39 Dose: 200 mls/hr Iopamidol (Isovue-370 (76%)) 75 ml IV ONETIME ONE Stop: 12/21/16 13:44 Last Admin: 12/21/16 13:45 Dose: 75 ml Ondansetron HCl (Zofran) 4 mg IVPUSH ONETIME ONE Stop: 12/21/16 08:42 Last Admin: 12/21/16 08:46 Dose: 4 mg Ondansetron HCl (Zofran Odt) 4 mg PO Q4H PRN PRN Reason: nausea, able to take PO - Exam General: Alert, Oriented, Cooperative, No Acute Distress HEENT: Pupils Equal, Pupils Reactive Neck: Supple Lungs: Clear to Auscultation, Normal Respiratory Effort Cardiovascular: Regular Rate, Regular Rhythm, No Murmurs GI/Abdominal Exam: Normal Bowel Sounds, Soft, No Distention, Tender (Mild tenderness in the left lower quadrant. No rebound, no guarding. No rigidity. Bowel sounds are present.) Extremities: Pedal Edema (Trace.) Psy/Mental Status: Alert, Normal Affect, Normal Mood - Problem List & Annotations (1) Colitis SNOMED Code(s): 97299391 Code(s): K52.9 - NONINFECTIVE GASTROENTERITIS AND COLITIS, UNSPECIFIED Status: Acute Current Visit: Yes Annotation/Comment:: Favor infectious etiology. I broadened the patient's antibiotics to Levaquin with Flagyl instead of Cipro today to give better coverage for potential respiratory infection. Continue clear fluids since white count has not started to trend down. (2) CKD stage 3 due to type 2 diabetes mellitus SNOMED Code(s): 287078344357 Code(s): E11.22 - TYPE 2 DIABETES MELLITUS W DIABETIC CHRONIC KIDNEY DISEASE ; N18.3 - CHRONIC KIDNEY DISEASE, STAGE 3 (MODERATE) Status: Acute Current Visit: Yes Annotation/Comment:: Renal function stable with creatinine today 1.6. Continue monitoring. Blood sugar 265. Continue sliding scale but will increase dose. (3) Elevated d-dimer SNOMED Code(s): 036003746 Code(s): R79.89 - OTHER SPECIFIED ABNORMAL FINDINGS OF BLOOD CHEMISTRY Status: Acute Current Visit: Yes Annotation/Comment:: May be related to inflammation of the bowel rather than clotting. No evidence of lower extremity DVT. Monitor. (4) HTN (hypertension) SNOMED Code(s): 51279678 Code(s): I10 - ESSENTIAL (PRIMARY) HYPERTENSION Status: Acute Current Visit: Yes Annotation/Comment:: Continue current meds. (5) Hyperlipidemia SNOMED Code(s): 22113093 Code(s): E78.5 - HYPERLIPIDEMIA, UNSPECIFIED Status: Acute Current Visit : Yes Annotation/Comment:: Untreated because of age. (6) DVT prophylaxis SNOMED Code(s): 561191409 Code(s): NJE8805 - Status: Acute Current Visit: Yes Annotation/Comment :: Heparin BID. Start tonight. - Problem List Review Problem List Initiated/Reviewed/Updated: Yes - My Orders Last 24 Hours: My Active Orders 12/21/16 16:30 Sodium Chloride 0.9% [Normal Saline] 1,000 ml IV ASDIRECTED metroNIDAZOLE/Normal Saline [Flagyl 500 MG in NS 100 ML] 500 mg Premix Bag 1 bag IV Q8H 12/21/16 19:55 Amitriptyline [Elavil] 10 mg PO BEDTIME PRN 12/21/16 20:00 Insulin Aspart [NovoLOG] See Dose Instructions SUBCUT TIDMEALS Sodium Chloride 0.9% [Normal Saline] 1,000 ml IV ASDIRECTED 12/22/16 09:00 Aspirin [Ecotrin] 325 mg PO DAILY amLODIPine [Norvasc] 5 mg PO DAILY 12/22/16 18:00 Levofloxacin/Dextrose 5%-Water [Levaquin in D5W 750 MG/150 ML] 750 mg Premix Bag 1 bag IV Q48H
[2016-12-22] MEDS: Levofloxacin/Dextrose 5%-Water 750 MG in Premix Bag 1 BAG IV SCH (19:03)
[2016-12-22] MEDS: Heparin Sodium 5,000 Units/ML Vial SUBCUT SCH (21:14)
[2016-12-23] MEDS: metroNIDAZOLE/Normal Saline 500 MG in Premix Bag 1 BAG IV SCH ×3 (01:03→16:08)
[2016-12-23] MEDS: Sodium Chloride 0.9% 1,000 ML IV SCH (01:08)
[2016-12-23] MEDS: Insulin Aspart 100 Units/ML 3 ML Pen SUBCUT SCH ×3 (08:02→18:32)
[2016-12-23] MEDS: amLODIPine 5 MG Tab PO SCH (09:50)
[2016-12-23] MEDS: Aspirin 325 MG Tab.EC PO SCH (09:50)
[2016-12-23] MEDS: Heparin Sodium 5,000 Units/ML Vial SUBCUT SCH ×2 (09:51→20:10)
[2016-12-23] MEDS: Sodium Chloride 0.9% 10 ML Syringe FLUSH PRN ×2 (11:24→16:08)
--- NOTE | 2016-12-23 14:07 | CR ---
INDICATION: Follow-up COPD/shortness of breath. CHEST: PA and lateral views of the chest 12/23/2016 were compared with 2016. An appearance of increasing pleuroparenchymal changes at the left lung base, compatible with progressive pneumonia and pleuritis. There again is difficulty in exclude pneumonia and pleuritis at the right lung base. Findings remain compatible with COPD, ASHD with cardiomegaly, osteoporosis with kyphosis and DJD, as well as exogenous obesity. IMPRESSION: Appearance of increasing infiltration at the lung bases, especially on the left with significant increase in pleural effusion. MTDD
--- NOTE | 2016-12-23 17:46 | PCM.PN ---
- General Info Date of Service: 12/23/16 Functional Status: Reports: Pain Controlled, Ambulating, Urinating (requently), Incentive Spirometry - Review of Systems General: Reports: Weakness, Fatigue, Malaise. Denies: Appetite HEENT: Reports: No Symptoms Pulmonary: Reports: Shortness of Breath (with activity) Cardiovascular: Reports: Dyspnea on Exertion, Edema. Denies: Chest Pain, Palpitations, Orthopnea, Lightheadedness Gastrointestinal: Reports: Constipation, Decreased Appetite, Flatus, Nausea. Denies: Abdominal Pain, Diarrhea, Vomiting Genitourinary: Reports: Frequency. Denies: Burning, Flank Pain Musculoskeletal: Reports: No Symptoms Skin: Reports: No Symptoms Neurological: Reports: No Symptoms Psychiatric: Reports: No Symptoms - Patient Data Vitals - Most Recent: Last Vital Signs Temp 98.2 F 12/23/16 13:00 Pulse 98 12/23/16 13:00 Resp 18 12/23/16 13:00 BP 124/64 12/23/16 13:00 Pulse Ox 91 L 12/23/16 13:00 Weight - Most Recent: 103.464 kg I&O - Last 24 Hours: Intake & Output 12/23/16 12/23/16 12/23/16 06:59 14:59 22:59 Intake Total 855 700 240 Output Total 900 700 Balance -45 0 240 Lab Results Last 24 Hours: Laboratory Results - last 24 hr 12/22/16 12/22/16 12/23/16 Range/Units 18:46 21:19 05:00 WBC (4.5-12.0) X10-3/uL RBC (3.23-5.20) x10(6)uL Hgb (11.5-15.5) g/dL Hct (30.0-51.3) % MCV (80-96) fL MCH (27.7-33.6) pg MCHC (32.2-35.4) g/dL RDW (11.5-15.5) % Plt Count (125-369) X10(3)uL MPV (7.4-10.4) fL Add Manual Diff Neutrophils % (Manual) (46-82) % Lymphocytes % (Manual) (13-37) % Monocytes % (Manual) (4-12) % Eosinophils % (Manual) (0-5) % Sodium (135-145) mmol/L Potassium (3.5-5.3) mmol/L Chloride (100-110) mmol/L Carbon Dioxide (23-29) mmol/L BUN (8-23) mg/dL Creatinine (0.6-1.3) mg/dL Est Cr Clr Drug Dosing mL/min Estimated GFR (MDRD) (>60) BUN/Creatinine Ratio (9-20) Glucose (80-116) mg/dL POC Glucose 243 H 206 H (80-116) mg/dL Calcium (8.6-10.2) mg/dL Total Bilirubin (0.1-1.3) mg/dL AST (5-27) IU/L ALT (14-26) IU/L Alkaline Phosphatase (56-112) IU/L Total Protein (6.0-8.0) g/dL Albumin (3.2-4.6) g/dL Globulin g/dL Albumin/Globulin Ratio Urine Color Yellow (YELLOW) Urine Appearance Clear (CLEAR) Urine pH 5.0 (5.0-6.5) Ur Specific Frannie 1.010 (1.010-1.025) Urine Protein Trace (NEGATIVE) mg/dL Urine Glucose (UA) Normal (NEGATIVE) mg/dL Urine Ketones 15 H (NEGATIVE) mg/dL Urine Occult Blood Moderate H (NEGATIVE) Urine Nitrite Negative (NEGATIVE) Urine Bilirubin Negative (NEGATIVE) Urine Urobilinogen Normal (NEGATIVE) mg/dL Ur Leukocyte Esterase Negative (NEGATIVE) Urine RBC 5-10 (0) Urine WBC 0-5 (0) Ur Squamous Epith Cells Few H (NS,R,O) Urine Bacteria Few H (NS) 12/23/16 12/23/16 12/23/16 Range/Units 06:55 06:55 11:28 WBC 15.4 H (4.5-12.0) X10-3/uL RBC 3.93 (3.23-5.20) x10(6)uL Hgb 12.0 (11.5-15.5) g/dL Hct 35.0 (30.0-51.3) % MCV 89.3 (80-96) fL MCH 30.5 (27.7-33.6) pg MCHC 34.2 (32.2-35.4) g/dL RDW 12.3 (11.5-15.5) % Plt Count 235 (125-369) X10(3)uL MPV 7.3 L (7.4-10.4) fL Add Manual Diff Yes Neutrophils % (Manual) 74 (46-82) % Lymphocytes % (Manual) 17 (13-37) % Monocytes % (Manual) 8 (4-12) % Eosinophils % (Manual) 1 (0-5) % Sodium 136 (135-145) mmol/L Potassium 4.6 (3.5-5.3) mmol/L Chloride 110 (100-110) mmol/L Carbon Dioxide 18 L (23-29) mmol/L BUN 24 H (8-23) mg/dL Creatinine 1.3 (0.6-1.3) mg/dL Est Cr Clr Drug Dosing 24.11 mL/min Estimated GFR (MDRD) 39 L (>60) BUN/Creatinine Ratio 18.5 (9-20) Glucose 226 H (80-116) mg/dL POC Glucose 221 H (80-116) mg/dL Calcium 8.1 L (8.6-10.2) mg/dL Total Bilirubin 0.5 (0.1-1.3) mg/dL AST 38 H D (5-27) IU/L ALT 23 (14-26) IU/L Alkaline Phosphatase 51 L (56-112) IU/L Total Protein 6.7 (6.0-8.0) g/dL Albumin 2.9 L (3.2-4.6) g/dL Globulin 3.8 g/dL Albumin/Globulin Ratio 0.8 Urine Color (YELLOW) Urine Appearance (CLEAR) Urine pH (5.0-6.5) Ur Specific Frannie (1.010-1.025) Urine Protein (NEGATIVE) mg/dL Urine Glucose (UA) (NEGATIVE) mg/dL Urine Ketones (NEGATIVE) mg/dL Urine Occult Blood (NEGATIVE) Urine Nitrite (NEGATIVE) Urine Bilirubin (NEGATIVE) Urine Urobilinogen (NEGATIVE) mg/dL Ur Leukocyte Esterase (NEGATIVE) Urine RBC (0) Urine WBC (0) Ur Squamous Epith Cells (NS,R,O) Urine Bacteria (NS) Jack Results Last 24 Hours: Microbiology 12/26/16 17:15 Stool / Feces Stool Occult Blood (JACK) - Final-positive 12/25/16 14:30 Stool / Feces Clostridium difficile Toxin A&B (M) - Final NEGATIVE CDIFF TOXIN 12/21/16 09:25 Blood - Venous - Lab Draw Aerobic Blood Culture - Final NO GROWTH AFTER 5 DAYS 12/21/16 09:25 Blood - Venous - Lab Draw Anaerobic Blood Culture - Final 12/21/16 09:15 Blood - Venous Aerobic Blood Culture - Final NO GROWTH AFTER 5 DAYS 12/21/16 09:15 Blood - Venous Anaerobic Blood Culture - Final NO GROWTH AFTER 5 DAYS Med Orders - Current: Current Medications Acetaminophen (Tylenol) 650 mg PO Q4H PRN PRN Reason: Pain (Mild 1-3)/fever Amitriptyline HCl (Elavil) 10 mg PO BEDTIME PRN PRN Reason: nerve pain Amlodipine Besylate (Norvasc) 5 mg PO DAILY [facility] Last Admin: 12/23/16 09:50 Dose: 5 mg Aspirin (Ecotrin) 325 mg PO DAILY [facility] Last Admin: 12/23/16 09:50 Dose: 325 mg Heparin Sodium (Porcine) (Heparin Sodium) 5,000 units SUBCUT Q12H [facility] Last Admin: 12/23/16 09:51 Dose: 5,000 units Sodium Chloride (Normal Saline) 1,000 mls @ 500 mls/hr IV ASDIRECTED [facility] Last Admin: 12/21/16 13:50 Dose: 500 mls/hr Metronidazole 500 mg/ Premix 100 mls @ 100 mls/hr IV Q8H [facility] Last Admin: 12/23/16 16:08 Dose: 100 mls/hr Levofloxacin/Dextrose 750 mg/ (Premix) 150 mls @ 100 mls/hr IV Q48H [facility] Last Admin: 12/22/16 19:03 Dose: 100 mls/hr Insulin Aspart (Novolog) 0 unit SUBCUT TIDMEALS [facility] Last Admin: 12/23/16 11:51 Dose: 6 unit Oxycodone HCl (Oxycodone) 5 mg PO Q4H PRN PRN Reason: Pain (moderate 4-6) Sodium Chloride (Saline Flush) 10 ml FLUSH ASDIRECTED PRN PRN Reason: Keep Vein Open Last Admin: 12/23/16 16:08 Dose: 10 ml Discontinued Medications Sodium Chloride (Normal Saline) 500 mls @ 999 mls/hr IV .BOLUS ONE Stop: 12/21/16 05:28 Last Admin: 12/21/16 05:28 Dose: 999 mls/hr Sodium Chloride (Normal Saline) 1,000 mls @ 999 mls/hr IV .BOLUS ONE Stop: 12/21/16 06:59 Last Admin: 12/21/16 06:00 Dose: 999 mls/hr Sodium Chloride (Normal Saline) 1,000 mls @ 999 mls/hr IV ASDIRECTED [facility] Last Admin: 12/21/16 10:25 Dose: 150 mls/hr Sodium Chloride (Normal Saline) 500 mls @ 1,000 mls/hr IV .BOLUS ONE Stop: 12/21/16 11:24 Last Admin: 12/21/16 11:11 Dose: Not Given Ciprofloxacin/Dextrose 400 mg/ (Premix) 200 mls @ 200 mls/hr IV Q24H [facility] Last Admin: 12/21/16 19:39 Dose: 200 mls/hr Sodium Chloride (Normal Saline) 1,000 mls @ 125 mls/hr IV ASDIRECTED [facility] Last Admin: 12/22/16 13:58 Dose: 125 mls/hr Sodium Chloride (Normal Saline) 1,000 mls @ 125 mls/hr IV ASDIRECTED [facility] Last Admin: 12/23/16 01:08 Dose: 125 mls/hr Iopamidol (Isovue-370 (76%)) 75 ml IV ONETIME ONE Stop: 12/21/16 13:44 Last Admin: 12/21/16 13:45 Dose: 75 ml Morphine Sulfate (Morphine) 2 mg IVPUSH Q2H PRN PRN Reason: Pain (severe 7-10) Ondansetron HCl (Zofran) 4 mg IVPUSH ONETIME ONE Stop: 12/21/16 08:42 Last Admin: 12/21/16 08:46 Dose: 4 mg Ondansetron HCl (Zofran Odt) 4 mg PO Q4H PRN PRN Reason: nausea, able to take PO Sodium Chloride (Saline Flush) 10 ml FLUSH ASDIRECTED PRN PRN Reason: Keep Vein Open - Exam Quality Assessment: Supplemental Oxygen, DVT Prophylaxis. No: Skin Breakdown General: Alert, Oriented, Cooperative, No Acute Distress HEENT: No: Mucous Membr. Moist/[place] Neck: Supple Lungs: Decreased Breath Sounds, Rales (minimal bilat). No: Wheezing Cardiovascular: Regular Rate, Regular Rhythm GI/Abdominal Exam: Soft, Non-Tender, No Distention. No: Normal Bowel Sounds, Guarding, Rigid (Female) Exam: Normal External Exam Back Exam: Normal Inspection. No: Paraspinal Tenderness, Vertebral Tenderness Extremities: Non-Tender, Pedal Edema (trace ) Skin: Dry, Intact. No: Rash Neurological: No New Focal Deficit, Normal Speech, Normal Tone Psy/Mental Status: Normal Affect (very pleasant), Normal Mood - Problem List & Annotations (1) CAP (community acquired pneumonia) SNOMED Code(s): 357073807 Code(s): J18.9 - PNEUMONIA, UNSPECIFIED ORGANISM Status: Acute (2) Colitis SNOMED Code(s): 09281354 Code(s): K52.9 - NONINFECTIVE GASTROENTERITIS AND COLITIS, UNSPECIFIED Status: Acute (3) Dehydration, moderate SNOMED Code(s): 4266700478640 Code(s): E86.0 - DEHYDRATION Status: Acute (4) Diarrhea SNOMED Code(s): 71906710 Code(s): R19.7 - DIARRHEA, UNSPECIFIED Status: Acute Qualifiers: Diarrhea type: unspecified type Qualified Code(s): R19.7 - Diarrhea, unspecified (5) Elevated d-dimer SNOMED Code(s): 073248735 Code(s): R79.89 - OTHER SPECIFIED ABNORMAL FINDINGS OF BLOOD CHEMISTRY Status: Acute (6) Microscopic hematuria SNOMED Code(s): 566515594 Code(s): R31.29 - OTHER MICROSCOPIC HEMATURIA Status: Acute (7) Type 2 DM with CKD and hypertension SNOMED Code(s): 98540894 Code(s): E11.22 - TYPE 2 DIABETES MELLITUS W DIABETIC CHRONIC KIDNEY DISEASE ; I12.9 - HYPERTENSIVE CHRONIC KIDNEY DISEASE W STG 1-4/UNSP CHR KDNY Status: Acute (8) CKD stage 3 due to type 2 diabetes mellitus SNOMED Code(s): 420614884598 Code(s): E11.22 - TYPE 2 DIABETES MELLITUS W DIABETIC CHRONIC KIDNEY DISEASE ; N18.3 - CHRONIC KIDNEY DISEASE, STAGE 3 (MODERATE) Status: Chronic (9) HTN (hypertension) SNOMED Code(s): 94026866 Code(s): I10 - ESSENTIAL (PRIMARY) HYPERTENSION Status: Chronic Annotation/Comment:: Continue current meds. (10) Hyperlipidemia SNOMED Code(s): 91377183 Code(s): E78.5 - HYPERLIPIDEMIA, UNSPECIFIED Status: Chronic Annotation/ Comment:: Untreated because of age. - Problem List Review Problem List Initiated/Reviewed/Updated: Yes - My Orders Last 24 Hours: My Active Orders 12/23/16 09:29 Convert IV to Saline Lock [OM.PC] Routine 12/23/16 17:42 GLUCOSE,POC [POC] Routine 12/23/16 Lunch Emmet Diet [DIET] - Assessment Assessment:: please see above. - Plan Plan:: will try to get her appetite up and have her up and moving around a bit more. weight is up. some rales. not sleeping at night due to frequent urination. would like to consider marie. continue o2 and nebs for cap along with IS as demonstrated. she sits up alot which is good. still weak. no since here. white count improving. will continue current cares. will plan on getting her up and about more as her strength improves. pt/ot on board. she is independent living so want to get her back as close to baseline as possible. plan to repeat ct abdomen with oral and iv contrast in a few days. sooner if needed. Rosangela explained dosing and type of insulin with her as she is nervous due to the therapeutic substitution and she agrees. continue adjusting as necessary in house. all questions answered and she agrees to current cares. Anticipate stay minimal 48-72h.
[2016-12-24] MEDS: metroNIDAZOLE/Normal Saline 500 MG in Premix Bag 1 BAG IV SCH ×3 (00:45→16:42)
[2016-12-24] MEDS: Insulin Aspart 100 Units/ML 3 ML Pen SUBCUT SCH ×6 (07:59→19:08)
[2016-12-24] MEDS: amLODIPine 5 MG Tab PO SCH (08:12)
[2016-12-24] MEDS: Heparin Sodium 5,000 Units/ML Vial SUBCUT SCH ×2 (08:13→20:39)
[2016-12-24] MEDS: Aspirin 325 MG Tab.EC PO SCH (08:13)
[2016-12-24] MEDS: Sodium Chloride 0.9% 250 ML IV SCH (09:30)
[2016-12-24] MEDS: Sodium Chloride 0.9% 10 ML Syringe FLUSH PRN (11:45)
[2016-12-24] MEDS ORDERED: Lisinopril 20 MG Tab ONE (13:21)
[2016-12-24] MEDS ORDERED: Hydrochlorothiazide 12.5 MG Cap ONE (13:21)
[2016-12-24] MEDS: Hydrochlorothiazide/Lisinopril 12.5-20 MG Tab PO SCH (13:30)
[2016-12-24] MEDS: Levofloxacin/Dextrose 5%-Water 750 MG in Premix Bag 1 BAG IV SCH (17:57)
[2016-12-24] MEDS ORDERED: Insulin Detemir 100 Units/ML 3 ML Pen SUBCUT SCH (21:00)
[2016-12-25] MEDS: metroNIDAZOLE/Normal Saline 500 MG in Premix Bag 1 BAG IV SCH ×3 (01:18→17:11)
[2016-12-25] MEDS ORDERED: Furosemide 40 MG/4 ML VIAL IVPUSH ONE ×2 (01:46→10:54)
[2016-12-25] MEDS: Insulin Aspart 100 Units/ML 3 ML Pen SUBCUT SCH ×3 (08:54→17:17)
[2016-12-25] MEDS: Heparin Sodium 5,000 Units/ML Vial SUBCUT SCH ×2 (08:59→20:18)
[2016-12-25] MEDS ORDERED: Hydrochlorothiazide/Lisinopril 12.5-20 MG Tab PO SCH (09:00)
[2016-12-25] MEDS ORDERED: Lisinopril 20 MG Tab ONE (09:04)
[2016-12-25] MEDS ORDERED: Hydrochlorothiazide 12.5 MG Cap ONE (09:05)
[2016-12-25] MEDS: Aspirin 325 MG Tab.EC PO SCH (09:16)
[2016-12-25] MEDS: Hydrochlorothiazide/Lisinopril 12.5-20 MG Tab PO SCH (09:19)
[2016-12-25] MEDS: Multivitamin Tab PO SCH (09:19)
[2016-12-25] MEDS: amLODIPine 5 MG Tab PO SCH (09:19)
[2016-12-25] MEDS: Sodium Chloride 0.9% 10 ML Syringe FLUSH PRN (12:15)
[2016-12-25] MEDS: Sodium Chloride 0.9% 250 ML IV SCH (17:10)
[2016-12-25] MEDS: Zolpidem 5 MG Tab PO SCH (20:22)
[2016-12-25] MEDS ORDERED: Insulin Detemir 100 Units/ML 3 ML Pen SUBCUT SCH (21:00)
[2016-12-26] MEDS: metroNIDAZOLE/Normal Saline 500 MG in Premix Bag 1 BAG IV SCH ×4 (00:56→23:41)
[2016-12-26] MEDS: Insulin Aspart 100 Units/ML 3 ML Pen SUBCUT SCH ×3 (08:02→17:27)
[2016-12-26] MEDS: Heparin Sodium 5,000 Units/ML Vial SUBCUT SCH ×2 (08:04→20:45)
[2016-12-26] MEDS: amLODIPine 5 MG Tab PO SCH (08:04)
[2016-12-26] MEDS: Aspirin 325 MG Tab.EC PO SCH (08:04)
[2016-12-26] MEDS: Hydrochlorothiazide/Lisinopril 12.5-20 MG Tab PO SCH (09:08)
[2016-12-26] MEDS: Multivitamin Tab PO SCH (09:08)
[2016-12-26] MEDS ORDERED: Diatrizoate Meglumine/Diatrizoate Sodium 37% 30 ML Bottle PO ONE (12:30)
--- NOTE | 2016-12-26 13:13 | PCM.PN ---
- General Info Date of Service: 12/24/16 Functional Status: Reports: Tolerating Diet, Ambulating, Urinating, Incentive Spirometry - Review of Systems Systems Review Comment:: General: Reports: Weakness, Fatigue, Malaise. Denies: Appetite HEENT: Reports: No Symptoms Pulmonary: Reports: Shortness of Breath (with activity) Cardiovascular: Reports: Dyspnea on Exertion, Edema. Denies: Chest Pain, Palpitations, Orthopnea, Lightheadedness Gastrointestinal: Reports: Constipation, Decreased Appetite, Flatus, Nausea. Denies: Abdominal Pain, Diarrhea, Vomiting Genitourinary: Reports: Frequency. Denies: Burning, Flank Pain Musculoskeletal: Reports: No Symptoms Skin: Reports: No Symptoms Neurological: Reports: No Symptoms Psychiatric: Reports: No Symptoms - Patient Data Vitals - Most Recent: Last Vital Signs Temp 98.9 F 12/26/16 12:00 Pulse 74 12/26/16 12:00 Resp 20 12/26/16 12:00 BP 158/69 H 12/26/16 12:00 Pulse Ox 90 L 12/26/16 12:00 Weight - Most Recent: 99.337 kg I&O - Last 24 Hours: Intake & Output 12/25/16 12/26/16 12/26/16 22:59 06:59 14:59 Intake Total 240 Output Total 900 550 Balance -660 -550 Lab Results Last 24 Hours: Laboratory Results - last 24 hr 12/25/16 12/25/16 12/26/16 Range/Units 17:13 20:25 06:19 WBC (4.5-12.0) X10-3/uL RBC (3.23-5.20) x10(6)uL Hgb (11.5-15.5) g/dL Hct (30.0-51.3) % MCV (80-96) fL MCH (27.7-33.6) pg MCHC (32.2-35.4) g/dL RDW (11.5-15.5) % Plt Count (125-369) X10(3)uL MPV (7.4-10.4) fL Neut % (Auto) (46-82) % Lymph % (Auto) (13-37) % Gregg % (Auto) (4-12) % Eos % (Auto) (1.0-5.0) % Baso % (Auto) (0-2) % Neut # (Auto) (1.6-8.3) # Lymph # (Auto) (0.6-5.0) # Gregg # (Auto) (0.0-1.3) # Eos # (Auto) (0.0-0.8) # Baso # (Auto) (0.0-0.2) # POC Glucose 226 H 310 H D 246 H (80-116) mg/dL 12/26/16 12/26/16 Range/Units 06:25 11:35 WBC 9.5 (4.5-12.0) X10-3/uL RBC 3.94 (3.23-5.20) x10(6)uL Hgb 11.9 (11.5-15.5) g/dL Hct 34.9 (30.0-51.3) % MCV 88.7 (80-96) fL MCH 30.1 (27.7-33.6) pg MCHC 33.9 (32.2-35.4) g/dL RDW 12.1 (11.5-15.5) % Plt Count 289 (125-369) X10(3)uL MPV 7.7 (7.4-10.4) fL Neut % (Auto) 64.6 (46-82) % Lymph % (Auto) 19.8 (13-37) % Gregg % (Auto) 11.5 (4-12) % Eos % (Auto) 3 (1.0-5.0) % Baso % (Auto) 2 (0-2) % Neut # (Auto) 6.1 (1.6-8.3) # Lymph # (Auto) 1.9 (0.6-5.0) # Gregg # (Auto) 1.1 (0.0-1.3) # Eos # (Auto) 0.2 (0.0-0.8) # Baso # (Auto) 0.2 (0.0-0.2) # POC Glucose 312 H (80-116) mg/dL Med Orders - Current: Current Medications Acetaminophen (Tylenol) 650 mg PO Q4H PRN PRN Reason: Pain (Mild 1-3)/fever Amitriptyline HCl (Elavil) 10 mg PO BEDTIME PRN PRN Reason: nerve pain Amlodipine Besylate (Norvasc) 5 mg PO DAILY [facility] Last Admin: 12/26/16 08:04 Dose: 5 mg Aspirin (Ecotrin) 325 mg PO DAILY [facility] Last Admin: 12/26/16 08:04 Dose: 325 mg Lisinopril/HCTZ (Lisinopril/Hctz 20-12.5 Mg) 2 tab PO DAILY [facility] Last Admin: 12/26/16 09:08 Dose: 2 tab Heparin Sodium (Porcine) (Heparin Sodium) 5,000 units SUBCUT Q12H [facility] Last Admin: 12/26/16 08:04 Dose: 5,000 units Metronidazole 500 mg/ Premix 100 mls @ 100 mls/hr IV Q8H [facility] Last Admin: 12/26/16 08:15 Dose: 100 mls/hr Levofloxacin/Dextrose 750 mg/ (Premix) 150 mls @ 100 mls/hr IV Q48H [facility] Last Admin: 12/24/16 17:57 Dose: 100 mls/hr Sodium Chloride (Normal Saline) 250 mls @ 100 mls/hr IV ASDIRECTED [facility] Last Admin: 12/25/16 17:10 Dose: 100 mls/hr Insulin Aspart (Novolog) 0 unit SUBCUT TIDMEALS [facility] PRN Reason: Protocol Last Admin: 12/26/16 12:01 Dose: 12 units Insulin Detemir (Levemir) 10 unit SUBCUT BEDTIME [facility] Last Admin: 12/25/16 20:23 Dose: 10 units Multivitamins/Minerals/Vitamin C (Tab-A-Jodie) 1 tab PO DAILY [facility] Last Admin: 12/26/16 09:08 Dose: 1 tab Oxycodone HCl (Oxycodone) 5 mg PO Q4H PRN PRN Reason: Pain (moderate 4-6) Sodium Chloride (Saline Flush) 10 ml FLUSH ASDIRECTED PRN PRN Reason: Keep Vein Open Last Admin: 12/25/16 12:15 Dose: 10 ml Zolpidem Tartrate (Ambien) 5 mg PO BEDTIME [facility] Last Admin: 12/25/16 20:22 Dose: 5 mg Discontinued Medications Furosemide (Lasix) 40 mg IVPUSH NOW ONE Stop: 12/25/16 01:47 Last Admin: 12/25/16 02:05 Dose: 40 mg Furosemide (Lasix) 40 mg IVPUSH NOW ONE Stop: 12/25/16 10:55 Last Admin: 12/25/16 12:15 Dose: 40 mg Lisinopril/HCTZ (Lisinopril/Hctz 20-12.5 Mg) 2 tab PO DAILY [facility] Hydrochlorothiazide (Hydrochlorothiazide) Confirm Administered Dose 12.5 mg .ROUTE .STK-MED ONE Stop: 12/24/16 13:22 Last Admin: 12/24/16 13:29 Dose: Not Given Hydrochlorothiazide (Hydrochlorothiazide) Confirm Administered Dose 12.5 mg .ROUTE .STK-MED ONE Stop: 12/25/16 09:06 Last Admin: 12/25/16 09:18 Dose: Not Given Sodium Chloride (Normal Saline) 500 mls @ 999 mls/hr IV .BOLUS ONE Stop: 12/21/16 05:28 Last Admin: 12/21/16 05:28 Dose: 999 mls/hr Sodium Chloride (Normal Saline) 1,000 mls @ 999 mls/hr IV .BOLUS ONE Stop: 12/21/16 06:59 Last Admin: 12/21/16 06:00 Dose: 999 mls/hr Sodium Chloride (Normal Saline) 1,000 mls @ 999 mls/hr IV ASDIRECTED [facility] Last Admin: 12/21/16 10:25 Dose: 150 mls/hr Sodium Chloride (Normal Saline) 500 mls @ 1,000 mls/hr IV .BOLUS ONE Stop: 12/21/16 11:24 Last Admin: 12/21/16 11:11 Dose: Not Given Sodium Chloride (Normal Saline) 1,000 mls @ 500 mls/hr IV ASDIRECTED [facility] Last Admin: 12/21/16 13:50 Dose: 500 mls/hr Ciprofloxacin/Dextrose 400 mg/ (Premix) 200 mls @ 200 mls/hr IV Q24H [facility] Last Admin: 12/21/16 19:39 Dose: 200 mls/hr Sodium Chloride (Normal Saline) 1,000 mls @ 125 mls/hr IV ASDIRECTED [facility] Last Admin: 12/22/16 13:58 Dose: 125 mls/hr Sodium Chloride (Normal Saline) 1,000 mls @ 125 mls/hr IV ASDIRECTED [facility] Last Admin: 12/23/16 01:08 Dose: 125 mls/hr Insulin Aspart (Novolog) 0 unit SUBCUT TIDMEALS [facility] Last Admin: 12/24/16 17:48 Dose: 6 unit Insulin Detemir (Levemir) 6 unit SUBCUT BEDTIME [facility] Last Admin: 12/24/16 20:39 Dose: 6 units Iopamidol (Isovue-370 (76%)) 75 ml IV ONETIME ONE Stop: 12/21/16 13:44 Last Admin: 12/21/16 13:45 Dose: 75 ml Lisinopril (Prinivil) Confirm Administered Dose 20 mg .ROUTE .STK-MED ONE Stop: 12/24/16 13:22 Last Admin: 12/24/16 13:29 Dose: Not Given Lisinopril (Prinivil) Confirm Administered Dose 20 mg .ROUTE .STK-MED ONE Stop: 12/25/16 09:05 Last Admin: 12/25/16 09:18 Dose: Not Given Morphine Sulfate (Morphine) 2 mg IVPUSH Q2H PRN PRN Reason: Pain (severe 7-10) Ondansetron HCl (Zofran) 4 mg IVPUSH ONETIME ONE Stop: 12/21/16 08:42 Last Admin: 12/21/16 08:46 Dose: 4 mg Ondansetron HCl (Zofran Odt) 4 mg PO Q4H PRN PRN Reason: nausea, able to take PO Sodium Chloride (Saline Flush) 10 ml FLUSH ASDIRECTED PRN PRN Reason: Keep Vein Open - Exam Physical Findings Comments:: Quality Assessment: Supplemental Oxygen, DVT Prophylaxis. Mcmillan draining clear urine. No: Skin Breakdown General: Alert, Oriented, Cooperative, No Acute Distress HEENT: No: Mucous Membr. Moist/[place] Neck: Supple Lungs: Decreased Breath Sounds, Rales (minimal bilat). No: Wheezing Cardiovascular: Regular Rate, Regular Rhythm GI/Abdominal Exam: Soft, Non-Tender, No Distention. No: Normal Bowel Sounds, Guarding, Rigid Back Exam: Normal Inspection. No: Paraspinal Tenderness, Vertebral Tenderness Extremities: Non-Tender, Pedal Edema (trace ) Skin: Dry, Intact. No: Rash Neurological: No New Focal Deficit, Normal Speech, Normal Tone Psy/Mental Status: Normal Affect (very pleasant), Normal Mood - Problem List & Annotations (1) CAP (community acquired pneumonia) SNOMED Code(s): 489542795 Code(s): J18.9 - PNEUMONIA, UNSPECIFIED ORGANISM Status: Acute (2) Colitis SNOMED Code(s): 73861390 Code(s): K52.9 - NONINFECTIVE GASTROENTERITIS AND COLITIS, UNSPECIFIED Status: Acute (3) Mcmillan catheter in place SNOMED Code(s): 667838971 Code(s): Z92.89 - PERSONAL HISTORY OF OTHER MEDICAL TREATMENT Status: Acute (4) Microscopic hematuria SNOMED Code(s): 010827689 Code(s): R31.29 - OTHER MICROSCOPIC HEMATURIA Status: Acute (5) Type 2 DM with CKD and hypertension SNOMED Code(s): 83978482 Code(s): E11.22 - TYPE 2 DIABETES MELLITUS W DIABETIC CHRONIC KIDNEY DISEASE ; I12.9 - HYPERTENSIVE CHRONIC KIDNEY DISEASE W STG 1-4/UNSP CHR KDNY Status: Acute (6) CKD stage 3 due to type 2 diabetes mellitus SNOMED Code(s): 307216716814 Code(s): E11.22 - TYPE 2 DIABETES MELLITUS W DIABETIC CHRONIC KIDNEY DISEASE ; N18.3 - CHRONIC KIDNEY DISEASE, STAGE 3 (MODERATE) Status: Chronic (7) HTN (hypertension) SNOMED Code(s): 48935017 Code(s): I10 - ESSENTIAL (PRIMARY) HYPERTENSION Status: Chronic Annotation/Comment:: Continue current meds. (8) Hyperlipidemia SNOMED Code(s): 57628724 Code(s): E78.5 - HYPERLIPIDEMIA, UNSPECIFIED Status: Chronic Annotation/ Comment:: Untreated because of age. - Problem List Review Problem List Initiated/Reviewed/Updated: Yes - My Orders Last 24 Hours: My Active Orders 12/25/16 14:30 CDIFF TOXIN A+B GROUP [OP] Routine 12/25/16 21:00 Insulin Detemir [Levemir] 10 unit SUBCUT BEDTIME Zolpidem [Ambien] 5 mg PO BEDTIME 12/26/16 11:16 Abdomen Pelvis w Cont [CT] Routine 12/26/16 Lunch Nothing per Oral Now Diet [DIET] - Plan Plan:: npo at midnight. ct abd/pelvis with contrast in am. fluid overload covered with iv lasix over night. will give additional dose. ambien for sleep helped. appetite has improved a bit. glucose control improving. continue IV abx. cdiff pending. no bm yet. need to try for hemoccult as well. using IS and breathing much improved over last night. continue current cares and strengthening. anticipate stay additional 48-72h. Will give her son a call to update after i get results of imaging back.
--- NOTE | 2016-12-26 13:13 | PCM.PN ---
- General Info Date of Service: 12/25/16 Subjective Update: Slept well last night. feeling better each day. Functional Status: Reports: Tolerating Diet, Ambulating, Incentive Spirometry, Other (marie in place.) - Review of Systems Systems Review Comment:: General: Reports: Weakness, Fatigue, Malaise. Denies: Appetite HEENT: Reports: No Symptoms Pulmonary: Reports: Shortness of Breath (with activity) Cardiovascular: Reports: Dyspnea on Exertion, Edema. Denies: Chest Pain, Palpitations, Orthopnea, Lightheadedness Gastrointestinal: Reports: Constipation, Decreased Appetite, Flatus, Nausea. Denies: Abdominal Pain, Diarrhea, Vomiting Genitourinary: Reports: Frequency. Denies: Burning, Flank Pain Musculoskeletal: Reports: No Symptoms Skin: Reports: No Symptoms Neurological: Reports: No Symptoms Psychiatric: Reports: No Symptoms - Patient Data Vitals - Most Recent: Last Vital Signs Temp 98.9 F 12/26/16 12:00 Pulse 74 12/26/16 12:00 Resp 20 12/26/16 12:00 BP 158/69 H 12/26/16 12:00 Pulse Ox 90 L 12/26/16 12:00 Weight - Most Recent: 99.337 kg I&O - Last 24 Hours: Intake & Output 12/25/16 12/26/16 12/26/16 22:59 06:59 14:59 Intake Total 240 Output Total 900 550 Balance -660 -550 Lab Results Last 24 Hours: Laboratory Results - last 24 hr 12/25/16 12/25/16 12/26/16 Range/Units 17:13 20:25 06:19 WBC (4.5-12.0) X10-3/uL RBC (3.23-5.20) x10(6)uL Hgb (11.5-15.5) g/dL Hct (30.0-51.3) % MCV (80-96) fL MCH (27.7-33.6) pg MCHC (32.2-35.4) g/dL RDW (11.5-15.5) % Plt Count (125-369) X10(3)uL MPV (7.4-10.4) fL Neut % (Auto) (46-82) % Lymph % (Auto) (13-37) % [place] % (Auto) (4-12) % Eos % (Auto) (1.0-5.0) % Baso % (Auto) (0-2) % Neut # (Auto) (1.6-8.3) # Lymph # (Auto) (0.6-5.0) # [place] # (Auto) (0.0-1.3) # Eos # (Auto) (0.0-0.8) # Baso # (Auto) (0.0-0.2) # POC Glucose 226 H 310 H D 246 H (80-116) mg/dL 12/26/16 12/26/16 Range/Units 06:25 11:35 WBC 9.5 (4.5-12.0) X10-3/uL RBC 3.94 (3.23-5.20) x10(6)uL Hgb 11.9 (11.5-15.5) g/dL Hct 34.9 (30.0-51.3) % MCV 88.7 (80-96) fL MCH 30.1 (27.7-33.6) pg MCHC 33.9 (32.2-35.4) g/dL RDW 12.1 (11.5-15.5) % Plt Count 289 (125-369) X10(3)uL MPV 7.7 (7.4-10.4) fL Neut % (Auto) 64.6 (46-82) % Lymph % (Auto) 19.8 (13-37) % [place] % (Auto) 11.5 (4-12) % Eos % (Auto) 3 (1.0-5.0) % Baso % (Auto) 2 (0-2) % Neut # (Auto) 6.1 (1.6-8.3) # Lymph # (Auto) 1.9 (0.6-5.0) # [place] # (Auto) 1.1 (0.0-1.3) # Eos # (Auto) 0.2 (0.0-0.8) # Baso # (Auto) 0.2 (0.0-0.2) # POC Glucose 312 H (80-116) mg/dL Med Orders - Current: Current Medications Acetaminophen (Tylenol) 650 mg PO Q4H PRN PRN Reason: Pain (Mild 1-3)/fever Amitriptyline HCl (Elavil) 10 mg PO BEDTIME PRN PRN Reason: nerve pain Amlodipine Besylate (Norvasc) 5 mg PO DAILY [facility] Last Admin: 12/26/16 08:04 Dose: 5 mg Aspirin (Ecotrin) 325 mg PO DAILY [facility] Last Admin: 12/26/16 08:04 Dose: 325 mg Lisinopril/HCTZ (Lisinopril/Hctz 20-12.5 Mg) 2 tab PO DAILY [facility] Last Admin: 12/26/16 09:08 Dose: 2 tab Heparin Sodium (Porcine) (Heparin Sodium) 5,000 units SUBCUT Q12H [facility] Last Admin: 12/26/16 08:04 Dose: 5,000 units Metronidazole 500 mg/ Premix 100 mls @ 100 mls/hr IV Q8H [facility] Last Admin: 12/26/16 08:15 Dose: 100 mls/hr Levofloxacin/Dextrose 750 mg/ (Premix) 150 mls @ 100 mls/hr IV Q48H [facility] Last Admin: 12/24/16 17:57 Dose: 100 mls/hr Sodium Chloride (Normal Saline) 250 mls @ 100 mls/hr IV ASDIRECTED [facility] Last Admin: 12/25/16 17:10 Dose: 100 mls/hr Insulin Aspart (Novolog) 0 unit SUBCUT TIDMEALS [facility] PRN Reason: Protocol Last Admin: 12/26/16 12:01 Dose: 12 units Insulin Detemir (Levemir) 10 unit SUBCUT BEDTIME [facility] Last Admin: 12/25/16 20:23 Dose: 10 units Multivitamins/Minerals/Vitamin C (Tab-A-Jodie) 1 tab PO DAILY [facility] Last Admin: 12/26/16 09:08 Dose: 1 tab Oxycodone HCl (Oxycodone) 5 mg PO Q4H PRN PRN Reason: Pain (moderate 4-6) Sodium Chloride (Saline Flush) 10 ml FLUSH ASDIRECTED PRN PRN Reason: Keep Vein Open Last Admin: 12/25/16 12:15 Dose: 10 ml Zolpidem Tartrate (Ambien) 5 mg PO BEDTIME [facility] Last Admin: 12/25/16 20:22 Dose: 5 mg Discontinued Medications Furosemide (Lasix) 40 mg IVPUSH NOW ONE Stop: 12/25/16 01:47 Last Admin: 12/25/16 02:05 Dose: 40 mg Furosemide (Lasix) 40 mg IVPUSH NOW ONE Stop: 12/25/16 10:55 Last Admin: 12/25/16 12:15 Dose: 40 mg Lisinopril/HCTZ (Lisinopril/Hctz 20-12.5 Mg) 2 tab PO DAILY [facility] Hydrochlorothiazide (Hydrochlorothiazide) Confirm Administered Dose 12.5 mg .ROUTE .STK-MED ONE Stop: 12/24/16 13:22 Last Admin: 12/24/16 13:29 Dose: Not Given Hydrochlorothiazide (Hydrochlorothiazide) Confirm Administered Dose 12.5 mg .ROUTE .STK-MED ONE Stop: 12/25/16 09:06 Last Admin: 12/25/16 09:18 Dose: Not Given Sodium Chloride (Normal Saline) 500 mls @ 999 mls/hr IV .BOLUS ONE Stop: 12/21/16 05:28 Last Admin: 12/21/16 05:28 Dose: 999 mls/hr Sodium Chloride (Normal Saline) 1,000 mls @ 999 mls/hr IV .BOLUS ONE Stop: 12/21/16 06:59 Last Admin: 12/21/16 06:00 Dose: 999 mls/hr Sodium Chloride (Normal Saline) 1,000 mls @ 999 mls/hr IV ASDIRECTED [facility] Last Admin: 12/21/16 10:25 Dose: 150 mls/hr Sodium Chloride (Normal Saline) 500 mls @ 1,000 mls/hr IV .BOLUS ONE Stop: 12/21/16 11:24 Last Admin: 12/21/16 11:11 Dose: Not Given Sodium Chloride (Normal Saline) 1,000 mls @ 500 mls/hr IV ASDIRECTED [facility] Last Admin: 12/21/16 13:50 Dose: 500 mls/hr Ciprofloxacin/Dextrose 400 mg/ (Premix) 200 mls @ 200 mls/hr IV Q24H [facility] Last Admin: 12/21/16 19:39 Dose: 200 mls/hr Sodium Chloride (Normal Saline) 1,000 mls @ 125 mls/hr IV ASDIRECTED [facility] Last Admin: 12/22/16 13:58 Dose: 125 mls/hr Sodium Chloride (Normal Saline) 1,000 mls @ 125 mls/hr IV ASDIRECTED [facility] Last Admin: 12/23/16 01:08 Dose: 125 mls/hr Insulin Aspart (Novolog) 0 unit SUBCUT TIDMEALS [facility] Last Admin: 12/24/16 17:48 Dose: 6 unit Insulin Detemir (Levemir) 6 unit SUBCUT BEDTIME [facility] Last Admin: 12/24/16 20:39 Dose: 6 units Iopamidol (Isovue-370 (76%)) 75 ml IV ONETIME ONE Stop: 12/21/16 13:44 Last Admin: 12/21/16 13:45 Dose: 75 ml Lisinopril (Prinivil) Confirm Administered Dose 20 mg .ROUTE .STK-MED ONE Stop: 12/24/16 13:22 Last Admin: 12/24/16 13:29 Dose: Not Given Lisinopril (Prinivil) Confirm Administered Dose 20 mg .ROUTE .STK-MED ONE Stop: 12/25/16 09:05 Last Admin: 12/25/16 09:18 Dose: Not Given Morphine Sulfate (Morphine) 2 mg IVPUSH Q2H PRN PRN Reason: Pain (severe 7-10) Ondansetron HCl (Zofran) 4 mg IVPUSH ONETIME ONE Stop: 12/21/16 08:42 Last Admin: 12/21/16 08:46 Dose: 4 mg Ondansetron HCl (Zofran Odt) 4 mg PO Q4H PRN PRN Reason: nausea, able to take PO Sodium Chloride (Saline Flush) 10 ml FLUSH ASDIRECTED PRN PRN Reason: Keep Vein Open - Exam Physical Findings Comments:: Quality Assessment: Supplemental Oxygen, DVT Prophylaxis. Marie draining clear urine. No: Skin Breakdown General: Alert, Oriented, Cooperative, No Acute Distress HEENT: No: Mucous Membr. Moist/[place] Neck: Supple Lungs: Decreased Breath Sounds, Rales (minimal bilat). No: Wheezing Cardiovascular: Regular Rate, Regular Rhythm GI/Abdominal Exam: Soft, Non-Tender, No Distention. No: Normal Bowel Sounds, Guarding, Rigid Back Exam: Normal Inspection. No: Paraspinal Tenderness, Vertebral Tenderness Extremities: Non-Tender, Pedal Edema (trace ) Skin: Dry, Intact. No: Rash Neurological: No New Focal Deficit, Normal Speech, Normal Tone Psy/Mental Status: Normal Affect (very pleasant), Normal Mood - Problem List Review Problem List Initiated/Reviewed/Updated: Yes - My Orders Last 24 Hours: My Active Orders 12/25/16 14:30 CDIFF TOXIN A+B GROUP [OP] Routine 12/25/16 21:00 Insulin Detemir [Levemir] 10 unit SUBCUT BEDTIME Zolpidem [Ambien] 5 mg PO BEDTIME 12/26/16 11:16 Abdomen Pelvis w Cont [CT] Routine 12/26/16 Lunch Nothing per Oral Now Diet [DIET] - Assessment Assessment:: Discharge Diagnosis/Problem(s) (1) CAP (community acquired pneumonia) SNOMED Code(s): 712923458 ICD Code: J18.9 - PNEUMONIA, UNSPECIFIED ORGANISM Status: Acute Current Visit: Yes (2) Colitis SNOMED Code(s): 26748864 ICD Code: K52.9 - NONINFECTIVE GASTROENTERITIS AND COLITIS, UNSPECIFIED Status: Acute Current Visit: Yes Problem Details: (3) DVT prophylaxis SNOMED Code(s): 930838765 ICD Code: [id number] - Status: Acute Current Visit: Yes Problem Details: Heparin BID. Start tonight. (4) Dehydration, moderate SNOMED Code(s): 2468202288795 ICD Code: E86.0 - DEHYDRATION Status: Acute Current Visit: Yes (5) Diarrhea SNOMED Code(s): 72207893 ICD Code: R19.7 - DIARRHEA, UNSPECIFIED Status: Acute Current Visit: Yes Qualifiers: Diarrhea type: unspecified type Qualified Code(s): R19.7 - Diarrhea, unspecified (6) Elevated d-dimer SNOMED Code(s): 359789336 ICD Code: R79.89 - OTHER SPECIFIED ABNORMAL FINDINGS OF BLOOD CHEMISTRY Status: Acute Current Visit: Yes Problem Details: (7) Marie catheter in place SNOMED Code(s): 086253682 ICD Code: Z92.89 - PERSONAL HISTORY OF OTHER MEDICAL TREATMENT Status: Acute Current Visit: Yes (8) GI (gastrointestinal bleed) SNOMED Code(s): 30821136 ICD Code: K92.2 - GASTROINTESTINAL HEMORRHAGE, UNSPECIFIED Status: Acute Current Visit: Yes (9) Microscopic hematuria SNOMED Code(s): 000675140 ICD Code: R31.29 - OTHER MICROSCOPIC HEMATURIA Status: Acute Current Visit: Yes (10) Type 2 DM with CKD and hypertension SNOMED Code(s): 33382984 ICD Code: E11.22 - TYPE 2 DIABETES MELLITUS W DIABETIC CHRONIC KIDNEY DISEASE ; I12.9 - HYPERTENSIVE CHRONIC KIDNEY DISEASE W STG 1-4/UNSP CHR KDNY Status: Acute Current Visit: Yes (11) CKD stage 3 due to type 2 diabetes mellitus SNOMED Code(s): 064462161977 ICD Code: E11.22 - TYPE 2 DIABETES MELLITUS W DIABETIC CHRONIC KIDNEY DISEASE ; N18.3 - CHRONIC KIDNEY DISEASE, STAGE 3 (MODERATE) Status: Chronic Current Visit: Yes Problem Details: (12) HTN (hypertension) SNOMED Code(s): 20290925 ICD Code: I10 - ESSENTIAL (PRIMARY) HYPERTENSION Status: Chronic Current Visit: Yes Problem Details: Continue current meds. (13) Hyperlipidemia SNOMED Code(s): 87706280 ICD Code: E78.5 - HYPERLIPIDEMIA, UNSPECIFIED Status: Chronic Current Visit: Yes Problem Details: Untreated because of age. - Plan Plan:: Improving. continue current cares. bp will be better controlled once giving appropriate dose. no changes otherwise. Anticipate additional 24-48 hrs if continues to improved and pending results of ct/if there is need for surgical consult for possible colonoscopy, she is able to tolerate her oral antibiotics once switched over, and pending pt/ot recommendations. weaning off o2 as able. repeating cxr. continue to adjust insulin carefully. glucose improved. will hope for a bowel movement after contrast.
--- NOTE | 2016-12-26 13:13 | PCM.PN ---
- General Info Date of Service: 12/26/16 Subjective Update: Sleep very well last night and feeling better each day. would like to walk around a bit more today. she uses a walker. pt/ot working with her and nursing has had her up as well. tolerates her IS, feels breathing is much deeper and improved. no increase in leg swelling and no pain. Functional Status: Reports: Ambulating, Incentive Spirometry, Other (feeling stronger. diet improved a bit. tolerating oral meds.). Denies: New Symptoms - Review of Systems Systems Review Comment:: see subjective. - Patient Data Vitals - Most Recent: Last Vital Signs Temp 98.9 F 12/26/16 12:00 Pulse 74 12/26/16 12:00 Resp 20 12/26/16 12:00 BP 158/69 H 12/26/16 12:00 Pulse Ox 90 L 12/26/16 12:00 Weight - Most Recent: 99.337 kg I&O - Last 24 Hours: Intake & Output 12/25/16 12/26/16 12/26/16 22:59 06:59 14:59 Intake Total 240 Output Total 900 550 Balance -660 -550 Lab Results Last 24 Hours: Laboratory Results - last 24 hr 12/25/16 12/25/16 12/26/16 Range/Units 17:13 20:25 06:19 WBC (4.5-12.0) X10-3/uL RBC (3.23-5.20) x10(6)uL Hgb (11.5-15.5) g/dL Hct (30.0-51.3) % MCV (80-96) fL MCH (27.7-33.6) pg MCHC (32.2-35.4) g/dL RDW (11.5-15.5) % Plt Count (125-369) X10(3)uL MPV (7.4-10.4) fL Neut % (Auto) (46-82) % Lymph % (Auto) (13-37) % [place] % (Auto) (4-12) % Eos % (Auto) (1.0-5.0) % Baso % (Auto) (0-2) % Neut # (Auto) (1.6-8.3) # Lymph # (Auto) (0.6-5.0) # [place] # (Auto) (0.0-1.3) # Eos # (Auto) (0.0-0.8) # Baso # (Auto) (0.0-0.2) # POC Glucose 226 H 310 H D 246 H (80-116) mg/dL 12/26/16 12/26/16 Range/Units 06:25 11:35 WBC 9.5 (4.5-12.0) X10-3/uL RBC 3.94 (3.23-5.20) x10(6)uL Hgb 11.9 (11.5-15.5) g/dL Hct 34.9 (30.0-51.3) % MCV 88.7 (80-96) fL MCH 30.1 (27.7-33.6) pg MCHC 33.9 (32.2-35.4) g/dL RDW 12.1 (11.5-15.5) % Plt Count 289 (125-369) X10(3)uL MPV 7.7 (7.4-10.4) fL Neut % (Auto) 64.6 (46-82) % Lymph % (Auto) 19.8 (13-37) % [place] % (Auto) 11.5 (4-12) % Eos % (Auto) 3 (1.0-5.0) % Baso % (Auto) 2 (0-2) % Neut # (Auto) 6.1 (1.6-8.3) # Lymph # (Auto) 1.9 (0.6-5.0) # [place] # (Auto) 1.1 (0.0-1.3) # Eos # (Auto) 0.2 (0.0-0.8) # Baso # (Auto) 0.2 (0.0-0.2) # POC Glucose 312 H (80-116) mg/dL Med Orders - Current: Current Medications Acetaminophen (Tylenol) 650 mg PO Q4H PRN PRN Reason: Pain (Mild 1-3)/fever Amitriptyline HCl (Elavil) 10 mg PO BEDTIME PRN PRN Reason: nerve pain Amlodipine Besylate (Norvasc) 5 mg PO DAILY [facility] Last Admin: 12/26/16 08:04 Dose: 5 mg Aspirin (Ecotrin) 325 mg PO DAILY [facility] Last Admin: 12/26/16 08:04 Dose: 325 mg Lisinopril/HCTZ (Lisinopril/Hctz 20-12.5 Mg) 2 tab PO DAILY [facility] Last Admin: 12/26/16 09:08 Dose: 2 tab Heparin Sodium (Porcine) (Heparin Sodium) 5,000 units SUBCUT Q12H [facility] Last Admin: 12/26/16 08:04 Dose: 5,000 units Metronidazole 500 mg/ Premix 100 mls @ 100 mls/hr IV Q8H [facility] Last Admin: 12/26/16 08:15 Dose: 100 mls/hr Levofloxacin/Dextrose 750 mg/ (Premix) 150 mls @ 100 mls/hr IV Q48H [facility] Last Admin: 12/24/16 17:57 Dose: 100 mls/hr Sodium Chloride (Normal Saline) 250 mls @ 100 mls/hr IV ASDIRECTED [facility] Last Admin: 12/25/16 17:10 Dose: 100 mls/hr Insulin Aspart (Novolog) 0 unit SUBCUT TIDMEALS [facility] PRN Reason: Protocol Last Admin: 12/26/16 12:01 Dose: 12 units Insulin Detemir (Levemir) 10 unit SUBCUT BEDTIME [facility] Last Admin: 12/25/16 20:23 Dose: 10 units Multivitamins/Minerals/Vitamin C (Tab-A-Jodie) 1 tab PO DAILY [facility] Last Admin: 12/26/16 09:08 Dose: 1 tab Oxycodone HCl (Oxycodone) 5 mg PO Q4H PRN PRN Reason: Pain (moderate 4-6) Sodium Chloride (Saline Flush) 10 ml FLUSH ASDIRECTED PRN PRN Reason: Keep Vein Open Last Admin: 12/25/16 12:15 Dose: 10 ml Zolpidem Tartrate (Ambien) 5 mg PO BEDTIME [facility] Last Admin: 12/25/16 20:22 Dose: 5 mg Discontinued Medications Furosemide (Lasix) 40 mg IVPUSH NOW ONE Stop: 12/25/16 01:47 Last Admin: 12/25/16 02:05 Dose: 40 mg Furosemide (Lasix) 40 mg IVPUSH NOW ONE Stop: 12/25/16 10:55 Last Admin: 12/25/16 12:15 Dose: 40 mg Lisinopril/HCTZ (Lisinopril/Hctz 20-12.5 Mg) 2 tab PO DAILY [facility] Hydrochlorothiazide (Hydrochlorothiazide) Confirm Administered Dose 12.5 mg .ROUTE .STK-MED ONE Stop: 12/24/16 13:22 Last Admin: 12/24/16 13:29 Dose: Not Given Hydrochlorothiazide (Hydrochlorothiazide) Confirm Administered Dose 12.5 mg .ROUTE .STK-MED ONE Stop: 12/25/16 09:06 Last Admin: 12/25/16 09:18 Dose: Not Given Sodium Chloride (Normal Saline) 500 mls @ 999 mls/hr IV .BOLUS ONE Stop: 12/21/16 05:28 Last Admin: 12/21/16 05:28 Dose: 999 mls/hr Sodium Chloride (Normal Saline) 1,000 mls @ 999 mls/hr IV .BOLUS ONE Stop: 12/21/16 06:59 Last Admin: 12/21/16 06:00 Dose: 999 mls/hr Sodium Chloride (Normal Saline) 1,000 mls @ 999 mls/hr IV ASDIRECTED [facility] Last Admin: 12/21/16 10:25 Dose: 150 mls/hr Sodium Chloride (Normal Saline) 500 mls @ 1,000 mls/hr IV .BOLUS ONE Stop: 12/21/16 11:24 Last Admin: 12/21/16 11:11 Dose: Not Given Sodium Chloride (Normal Saline) 1,000 mls @ 500 mls/hr IV ASDIRECTED [facility] Last Admin: 12/21/16 13:50 Dose: 500 mls/hr Ciprofloxacin/Dextrose 400 mg/ (Premix) 200 mls @ 200 mls/hr IV Q24H [facility] Last Admin: 12/21/16 19:39 Dose: 200 mls/hr Sodium Chloride (Normal Saline) 1,000 mls @ 125 mls/hr IV ASDIRECTED [facility] Last Admin: 12/22/16 13:58 Dose: 125 mls/hr Sodium Chloride (Normal Saline) 1,000 mls @ 125 mls/hr IV ASDIRECTED [facility] Last Admin: 12/23/16 01:08 Dose: 125 mls/hr Insulin Aspart (Novolog) 0 unit SUBCUT TIDMEALS [facility] Last Admin: 12/24/16 17:48 Dose: 6 unit Insulin Detemir (Levemir) 6 unit SUBCUT BEDTIME [facility] Last Admin: 12/24/16 20:39 Dose: 6 units Iopamidol (Isovue-370 (76%)) 75 ml IV ONETIME ONE Stop: 12/21/16 13:44 Last Admin: 12/21/16 13:45 Dose: 75 ml Lisinopril (Prinivil) Confirm Administered Dose 20 mg .ROUTE .STK-MED ONE Stop: 12/24/16 13:22 Last Admin: 12/24/16 13:29 Dose: Not Given Lisinopril (Prinivil) Confirm Administered Dose 20 mg .ROUTE .STK-MED ONE Stop: 12/25/16 09:05 Last Admin: 12/25/16 09:18 Dose: Not Given Morphine Sulfate (Morphine) 2 mg IVPUSH Q2H PRN PRN Reason: Pain (severe 7-10) Ondansetron HCl (Zofran) 4 mg IVPUSH ONETIME ONE Stop: 12/21/16 08:42 Last Admin: 12/21/16 08:46 Dose: 4 mg Ondansetron HCl (Zofran Odt) 4 mg PO Q4H PRN PRN Reason: nausea, able to take PO Sodium Chloride (Saline Flush) 10 ml FLUSH ASDIRECTED PRN PRN Reason: Keep Vein Open - Exam Quality Assessment: Supplemental Oxygen, Urine Catheter, DVT Prophylaxis. No: Skin Breakdown General: Alert, Oriented, No Acute Distress HEENT: Mucous Membr. Moist/[place] Neck: Supple Lungs: Normal Respiratory Effort, Rales. No: Rhonchi Cardiovascular: Regular Rate, Regular Rhythm GI/Abdominal Exam: Normal Bowel Sounds, Soft, Non-Tender. No: Guarding (Female) Exam: Normal External Exam, Other (marie draining clear urine) Back Exam: No: Paraspinal Tenderness, Vertebral Tenderness Extremities: Pedal Edema (trace to 1+). No: Leg Pain Skin: Warm, Dry Neurological: No New Focal Deficit Psy/Mental Status: Normal Affect, Normal Mood - Problem List Review Problem List Initiated/Reviewed/Updated: Yes - My Orders Last 24 Hours: My Active Orders 12/25/16 14:30 CDIFF TOXIN A+B GROUP [OP] Routine 12/25/16 21:00 Insulin Detemir [Levemir] 10 unit SUBCUT BEDTIME Zolpidem [Ambien] 5 mg PO BEDTIME 12/26/16 11:16 Abdomen Pelvis w Cont [CT] Routine 12/26/16 Lunch Nothing per Oral Now Diet [DIET] - Assessment Assessment:: Diagnosis/Problem(s) (1) CAP (community acquired pneumonia) SNOMED Code(s): 079699153 ICD Code: J18.9 - PNEUMONIA, UNSPECIFIED ORGANISM Status: Acute Current Visit: Yes (2) Colitis SNOMED Code(s): 32920928 ICD Code: K52.9 - NONINFECTIVE GASTROENTERITIS AND COLITIS, UNSPECIFIED Status: Acute Current Visit: Yes Problem Details: (3) DVT prophylaxis SNOMED Code(s): 141464942 ICD Code: [id number] - Status: Acute Current Visit: Yes Problem Details: (4) Dehydration, moderate SNOMED Code(s): 7672661516668 ICD Code: E86.0 - DEHYDRATION Status: Acute Current Visit: Yes (5) Diarrhea SNOMED Code(s): 47047686 ICD Code: R19.7 - DIARRHEA, UNSPECIFIED Status: Acute Current Visit: Yes Qualifiers: Diarrhea type: unspecified type Qualified Code(s): R19.7 - Diarrhea, unspecified (6) Elevated d-dimer SNOMED Code(s): 511977601 ICD Code: R79.89 - OTHER SPECIFIED ABNORMAL FINDINGS OF BLOOD CHEMISTRY Status: Acute Current Visit: Yes Problem Details: (7) Marie catheter in place SNOMED Code(s): 713048914 ICD Code: Z92.89 - PERSONAL HISTORY OF OTHER MEDICAL TREATMENT Status: Acute Current Visit: Yes (8) GI (gastrointestinal bleed) SNOMED Code(s): 25243870 ICD Code: K92.2 - GASTROINTESTINAL HEMORRHAGE, UNSPECIFIED Status: Acute Current Visit: Yes (9) Microscopic hematuria SNOMED Code(s): 743943091 ICD Code: R31.29 - OTHER MICROSCOPIC HEMATURIA Status: Acute Current Visit: Yes (10) Type 2 DM with CKD and hypertension SNOMED Code(s): 82113222 ICD Code: E11.22 - TYPE 2 DIABETES MELLITUS W DIABETIC CHRONIC KIDNEY DISEASE ; I12.9 - HYPERTENSIVE CHRONIC KIDNEY DISEASE W STG 1-4/UNSP CHR KDNY Status: Acute Current Visit: Yes (11) CKD stage 3 due to type 2 diabetes mellitus SNOMED Code(s): 505734007171 ICD Code: E11.22 - TYPE 2 DIABETES MELLITUS W DIABETIC CHRONIC KIDNEY DISEASE ; N18.3 - CHRONIC KIDNEY DISEASE, STAGE 3 (MODERATE) Status: Chronic Current Visit: Yes Problem Details: (12) HTN (hypertension) SNOMED Code(s): 77334038 ICD Code: I10 - ESSENTIAL (PRIMARY) HYPERTENSION Status: Chronic Current Visit: Yes Problem Details: Continue current meds. (13) Hyperlipidemia SNOMED Code(s): 16290236 ICD Code: E78.5 - HYPERLIPIDEMIA, UNSPECIFIED Status: Chronic Current Visit: Yes Problem Details: Untreated because of age. - Plan Plan:: imaging and continue current cares. another day iv abx. then switch over to orals. objective and subjective data all showing excellent response to care plan. anticipate dicharge 24-48h.
[2016-12-26] MEDS: Iopamidol 755 Mg/ML 100 ML Bottle IV ONE ×2 (14:45→14:46)
--- NOTE | 2016-12-26 16:38 | CT ---
INDICATION: Follow-up colitis. CT ABDOMEN AND PELVIS WITH CONTRAST: Spiral 2.5-mm axial sections were obtained through the abdomen and pelvis with oral and IV contrast, (95 mL Isovue -370 at 1.1 mL per second) with sagittal and coronal reconstructions, 12/26/2016 , and compared with previous study of 12/21/2016. Total Exam DLP = 1684.62 mGy-cm. There is some pleural thickening at the lung bases, left greater than right with some minimal parenchymal changes, likely fibrotic in nature bilaterally also and more prominent on the left. Very minimal pneumonia is felt to be less likely in those areas. The heart appears enlarged with probable coronary artery calcifications. The gallbladder is again noted to be absent, compatible with history of its removal. The severity of colitis appears to have decreased in the descending colon. There is decreasing pericolonic fat stranding. Sigmoid diverticulosis is noted without definite evidence of diverticulitis. Prominent common bile duct compatible with cholecystectomy is again noted. Renal cortical scarring, minimal cystic changes again noted. The pancreas was grossly normal. The appendix is not visualized, compatible with its removal as perviously. Degenerative changes and disk disease are noted at L5-S1. No evidence of bowel obstruction was seen. No free air was identified. Calcifications are noted in the aorta, right renal artery, iliac, and femoral arteries. No evidence of hernia is identified. A catheter is noted in place in the urinary bladder with balloon retention. No organomegaly, mass lesions, or additional free fluid collections were identified in the abdomen or pelvis. IMPRESSION: 1. Decreasing severity of left colonic inflammation - less prominent colitis. 2. Diverticulosis coli, most notable in the sigmoid area. There does appear to be a diverticulum in the area of the splenic flexure colon. 3. ASD. 4. ASHD. 5. Post cholecystectomy. 6. Post appendectomy. 7. 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 8. Degenerative changes and disk disease L5-S1. CT PELVIS: Examination of the pelvis was obtained by CT, as noted above, and revealed degenerative changes and disk disease at L5-S1. Diverticulosis coli sigmoid colon, without evidence of diverticulitis. Calcifications in the arteries. No evidence of bowel obstruction was identified. Mcmillan catheter is noted in place. No organomegaly, mass lesions, or free fluid collections were identified in the pelvis. Report was called to Dr. Hardwick at 1553 hours, 12/26/2016. MTDD
[2016-12-26] MEDS: Levofloxacin/Dextrose 5%-Water 750 MG in Premix Bag 1 BAG IV SCH (17:29)
[2016-12-26] MEDS: Zolpidem 5 MG Tab PO SCH (20:53)
[2016-12-26] MEDS ORDERED: Insulin Detemir 100 Units/ML 3 ML Pen SUBCUT SCH (21:00)
[2016-12-27] MEDS: Sodium Chloride 0.9% 10 ML Syringe FLUSH PRN ×3 (01:10→10:16)
[2016-12-27] MEDS: Sodium Chloride 0.9% 250 ML IV SCH (08:33)
[2016-12-27] MEDS: metroNIDAZOLE/Normal Saline 500 MG in Premix Bag 1 BAG IV SCH (08:34)
[2016-12-27] MEDS: Insulin Aspart 100 Units/ML 3 ML Pen SUBCUT SCH ×3 (08:44→17:20)
[2016-12-27] MEDS: Aspirin 325 MG Tab.EC PO SCH (09:23)
[2016-12-27] MEDS: Heparin Sodium 5,000 Units/ML Vial SUBCUT SCH ×2 (09:23→20:32)
[2016-12-27] MEDS: Hydrochlorothiazide/Lisinopril 12.5-20 MG Tab PO SCH (09:24)
[2016-12-27] MEDS: Multivitamin Tab PO SCH (09:25)
[2016-12-27] MEDS: amLODIPine 5 MG Tab PO SCH (09:25)
--- NOTE | 2016-12-27 11:56 | PCM.PN ---
- General Info Date of Service: 12/27/16 Subjective Update: Feeling better today. She did have another cramp in the abdomen is sudden loose stool that she described as very malodorous. Since likely secondary to the contrast but guaiac was positive. Otherwise she denies any abdominal pain either while still or with ambulating. Diet is improving. She would like her Marie catheter to come out. She's been up and ambulating working with PT OT as well as nursing in the hallways. She feels her strength is greatly improved. She 's been afebrile greater than 48 hours. There've been no additional complications or concerns. Nursing denies any concerns at this time as well. Her son has been updated. - Review of Systems Pulmonary: Reports: Shortness of Breath (with exertion improving and now sats low 90s on room air. ) Cardiovascular: Denies: Chest Pain, Palpitations, Lightheadedness Gastrointestinal: Reports: Flatus, Melena. Denies: Abdominal Pain, Hematochezia , Nausea Genitourinary: Reports: Other (marie in place.). Denies: Urgency Musculoskeletal: Denies: Neck Pain, Shoulder Pain, Back Pain, Leg Pain Skin: Denies: Diaphoresis, Bruising Neurological: Denies: Weakness (improving back to baseline.) Psychiatric: Reports: No Symptoms - Patient Data Vitals - Most Recent: Last Vital Signs Temp 98.1 F 12/27/16 07:14 Pulse 88 12/27/16 10:34 Resp 20 12/27/16 07:14 BP 150/56 H 12/27/16 09:25 Pulse Ox 93 L 12/27/16 10:34 Weight - Most Recent: 100.516 kg I&O - Last 24 Hours: Intake & Output 12/26/16 12/27/16 12/27/16 22:59 06:59 14:59 Intake Total 225 20 Output Total 500 700 Balance -275 -700 20 Imaging Impressions - Last 24 Hours: cxr improved with regards to CAP. ct abd/pelvis. colitis is greatly reduced. no free air or masses. Lab Results Last 24 Hours: Laboratory Results - last 24 hr 12/26/16 12/26/16 12/27/16 Range/Units 16:50 20:16 05:35 WBC 10.7 (4.5-12.0) X10-3/uL RBC 4.01 (3.23-5.20) x10(6)uL Hgb 11.8 (11.5-15.5) g/dL Hct 35.3 (30.0-51.3) % MCV 88.0 (80-96) fL MCH 29.5 (27.7-33.6) pg MCHC 33.5 (32.2-35.4) g/dL RDW 12.1 (11.5-15.5) % Plt Count 275 (125-369) X10(3)uL Sodium (135-145) mmol/L Potassium (3.5-5.3) mmol/L Chloride (100-110) mmol/L Carbon Dioxide (23-29) mmol/L BUN (8-23) mg/dL Creatinine (0.6-1.3) mg/dL Est Cr Clr Drug Dosing mL/min Estimated GFR (MDRD) (>60) BUN/Creatinine Ratio (9-20) Glucose (80-116) mg/dL POC Glucose 185 H D 241 H (80-116) mg/dL Calcium (8.6-10.2) mg/dL Total Bilirubin (0.1-1.3) mg/dL AST (5-27) IU/L ALT (14-26) IU/L Alkaline Phosphatase (56-112) IU/L C-Reactive Protein (0.0-1.0) mg/dL NT-Pro-B Natriuret Pep (5-450) pg/mL Total Protein (6.0-8.0) g/dL Albumin (3.2-4.6) g/dL Globulin g/dL Albumin/Globulin Ratio 12/27/16 12/27/16 Range/Units 05:35 08:17 WBC (4.5-12.0) X10-3/uL RBC (3.23-5.20) x10(6)uL Hgb (11.5-15.5) g/dL Hct (30.0-51.3) % MCV (80-96) fL MCH (27.7-33.6) pg MCHC (32.2-35.4) g/dL RDW (11.5-15.5) % Plt Count (125-369) X10(3)uL Sodium 136 (135-145) mmol/L Potassium 3.9 (3.5-5.3) mmol/L Chloride 100 (100-110) mmol/L Carbon Dioxide 25 (23-29) mmol/L BUN 24 H (8-23) mg/dL Creatinine 1.4 H (0.6-1.3) mg/dL Est Cr Clr Drug Dosing 22.39 mL/min Estimated GFR (MDRD) 36 L (>60) BUN/Creatinine Ratio 17.1 (9-20) Glucose 224 H D (80-116) mg/dL POC Glucose 239 H (80-116) mg/dL Calcium 8.3 L (8.6-10.2) mg/dL Total Bilirubin 0.3 (0.1-1.3) mg/dL AST 28 H (5-27) IU/L ALT 20 (14-26) IU/L Alkaline Phosphatase 44 L (56-112) IU/L C-Reactive Protein 4.4 H* (0.0-1.0) mg/dL NT-Pro-B Natriuret Pep 893 H (5-450) pg/mL Total Protein 6.2 (6.0-8.0) g/dL Albumin 2.6 L (3.2-4.6) g/dL Globulin 3.6 g/dL Albumin/Globulin Ratio 0.7 Jack Results Last 24 Hours: Microbiology 12/26/16 17:15 Stool Occult Blood (JACK) - Final Stool / Feces 12/25/16 14:30 Clostridium difficile Toxin A&B (M) - Final Stool / Feces NEGATIVE CDIFF TOXIN Med Orders - Current: Current Medications Acetaminophen (Tylenol) 650 mg PO Q4H PRN PRN Reason: Pain (Mild 1-3)/fever Amitriptyline HCl (Elavil) 10 mg PO BEDTIME PRN PRN Reason: nerve pain Amlodipine Besylate (Norvasc) 5 mg PO DAILY [facility] Last Admin: 12/27/16 09:25 Dose: 5 mg Aspirin (Ecotrin) 325 mg PO DAILY [facility] Last Admin: 12/27/16 09:23 Dose: 325 mg Docusate Sodium (Colace) 100 mg PO DAILY [facility] Lisinopril/HCTZ (Lisinopril/Hctz 20-12.5 Mg) 2 tab PO DAILY [facility] Last Admin: 12/27/16 09:24 Dose: 2 tab Heparin Sodium (Porcine) (Heparin Sodium) 5,000 units SUBCUT Q12H [facility] Last Admin: 12/27/16 09:23 Dose: 5,000 units Metronidazole 500 mg/ Premix 100 mls @ 100 mls/hr IV Q8H [facility] Last Admin: 12/27/16 08:34 Dose: 100 mls/hr Levofloxacin/Dextrose 750 mg/ (Premix) 150 mls @ 100 mls/hr IV Q48H [facility] Last Admin: 12/26/16 17:29 Dose: 100 mls/hr Sodium Chloride (Normal Saline) 250 mls @ 100 mls/hr IV ASDIRECTED [facility] Last Admin: 12/27/16 08:33 Dose: 100 mls/hr Insulin Aspart (Novolog) 0 unit SUBCUT TIDMEALS [facility] PRN Reason: Protocol Last Admin: 12/27/16 08:44 Dose: 6 units Insulin Detemir (Levemir) 15 unit SUBCUT BEDTIME [facility] Last Admin: 12/26/16 20:54 Dose: 15 units Multivitamins/Minerals/Vitamin C (Tab-A-Jodie) 1 tab PO DAILY [facility] Last Admin: 12/27/16 09:25 Dose: 1 tab Oxycodone HCl (Oxycodone) 5 mg PO Q4H PRN PRN Reason: Pain (moderate 4-6) Sodium Chloride (Saline Flush) 10 ml FLUSH ASDIRECTED PRN PRN Reason: Keep Vein Open Last Admin: 12/27/16 10:16 Dose: 10 ml Zolpidem Tartrate (Ambien) 5 mg PO BEDTIME [facility] Last Admin: 12/26/16 20:53 Dose: 5 mg Discontinued Medications Diatrizoate Meglum/Diatrizoate Sod (Gastrografin 37%) 30 ml PO . DIRECTED ONE Stop: 12/26/16 12:31 Last Admin: 12/26/16 14:45 Dose: 30 ml Furosemide (Lasix) 40 mg IVPUSH NOW ONE Stop: 12/25/16 01:47 Last Admin: 12/25/16 02:05 Dose: 40 mg Furosemide (Lasix) 40 mg IVPUSH NOW ONE Stop: 12/25/16 10:55 Last Admin: 12/25/16 12:15 Dose: 40 mg Lisinopril/HCTZ (Lisinopril/Hctz 20-12.5 Mg) 2 tab PO DAILY [facility] Hydrochlorothiazide (Hydrochlorothiazide) Confirm Administered Dose 12.5 mg .ROUTE .STK-MED ONE Stop: 12/24/16 13:22 Last Admin: 12/24/16 13:29 Dose: Not Given Hydrochlorothiazide (Hydrochlorothiazide) Confirm Administered Dose 12.5 mg .ROUTE .STK-MED ONE Stop: 12/25/16 09:06 Last Admin: 12/25/16 09:18 Dose: Not Given Sodium Chloride (Normal Saline) 500 mls @ 999 mls/hr IV .BOLUS ONE Stop: 12/21/16 05:28 Last Admin: 12/21/16 05:28 Dose: 999 mls/hr Sodium Chloride (Normal Saline) 1,000 mls @ 999 mls/hr IV .BOLUS ONE Stop: 12/21/16 06:59 Last Admin: 12/21/16 06:00 Dose: 999 mls/hr Sodium Chloride (Normal Saline) 1,000 mls @ 999 mls/hr IV ASDIRECTED [facility] Last Admin: 12/21/16 10:25 Dose: 150 mls/hr Sodium Chloride (Normal Saline) 500 mls @ 1,000 mls/hr IV .BOLUS ONE Stop: 12/21/16 11:24 Last Admin: 12/21/16 11:11 Dose: Not Given Sodium Chloride (Normal Saline) 1,000 mls @ 500 mls/hr IV ASDIRECTED [facility] Last Admin: 12/21/16 13:50 Dose: 500 mls/hr Ciprofloxacin/Dextrose 400 mg/ (Premix) 200 mls @ 200 mls/hr IV Q24H [facility] Last Admin: 12/21/16 19:39 Dose: 200 mls/hr Sodium Chloride (Normal Saline) 1,000 mls @ 125 mls/hr IV ASDIRECTED [facility] Last Admin: 12/22/16 13:58 Dose: 125 mls/hr Sodium Chloride (Normal Saline) 1,000 mls @ 125 mls/hr IV ASDIRECTED [facility] Last Admin: 12/23/16 01:08 Dose: 125 mls/hr Insulin Aspart (Novolog) 0 unit SUBCUT TIDMEALS [facility] Last Admin: 12/24/16 17:48 Dose: 6 unit Insulin Detemir (Levemir) 6 unit SUBCUT BEDTIME [facility] Last Admin: 12/24/16 20:39 Dose: 6 units Insulin Detemir (Levemir) 10 unit SUBCUT BEDTIME [facility] Last Admin: 12/25/16 20:23 Dose: 10 units Iopamidol (Isovue-370 (76%)) 75 ml IV ONETIME ONE Stop: 12/21/16 13:44 Last Admin: 12/21/16 13:45 Dose: 75 ml Iopamidol (Isovue-370 (76%)) 100 ml IV . DIRECTED ONE Stop: 12/26/16 14:26 Last Admin: 12/26/16 14:46 Dose: 100 ml Lisinopril (Prinivil) Confirm Administered Dose 20 mg .ROUTE .STK-MED ONE Stop: 12/24/16 13:22 Last Admin: 12/24/16 13:29 Dose: Not Given Lisinopril (Prinivil) Confirm Administered Dose 20 mg .ROUTE .STK-MED ONE Stop: 12/25/16 09:05 Last Admin: 12/25/16 09:18 Dose: Not Given Morphine Sulfate (Morphine) 2 mg IVPUSH Q2H PRN PRN Reason: Pain (severe 7-10) Ondansetron HCl (Zofran) 4 mg IVPUSH ONETIME ONE Stop: 12/21/16 08:42 Last Admin: 12/21/16 08:46 Dose: 4 mg Ondansetron HCl (Zofran Odt) 4 mg PO Q4H PRN PRN Reason: nausea, able to take PO Sodium Chloride (Saline Flush) 10 ml FLUSH ASDIRECTED PRN PRN Reason: Keep Vein Open - Exam Quality Assessment: Urine Catheter General: Alert, Oriented, Cooperative, No Acute Distress HEENT: Mucous Membr. Moist/[place] Neck: Supple Lungs: Normal Respiratory Effort, Rales (fine at bilateral bases.). No: Rhonchi Cardiovascular: Regular Rate, Regular Rhythm GI/Abdominal Exam: Normal Bowel Sounds, Soft, Non-Tender, No Distention, No Mass. No: Guarding, Rigid (Female) Exam: Normal External Exam Back Exam: No: Paraspinal Tenderness, Vertebral Tenderness Extremities: Pedal Edema (trace, wearing teds. ) Skin: Warm Neurological: No New Focal Deficit Psy/Mental Status: Normal Affect, Normal Mood - Problem List Review Problem List Initiated/Reviewed/Updated: Yes - My Orders Last 24 Hours: My Active Orders 12/26/16 21:00 Insulin Detemir [Levemir] 15 unit SUBCUT BEDTIME 12/26/16 Dinner Glenn Diet [DIET] Notify Provider Consults [RC] ASDIRECTED 12/27/16 10:30 Docusate Sodium [Colace] 100 mg PO DAILY 12/27/16 11:54 DC Marie Catheter [Urinary Catheter Removal] [RC] Per Unit Routine - Assessment Assessment:: (1) CAP (community acquired pneumonia) SNOMED Code(s): 092449218 ICD Code: J18.9 - PNEUMONIA, UNSPECIFIED ORGANISM Status: Acute Current Visit: Yes (2) Colitis SNOMED Code(s): 33026132 ICD Code: K52.9 - NONINFECTIVE GASTROENTERITIS AND COLITIS, UNSPECIFIED Status: Acute Current Visit: Yes Problem Details: (2) GI (gastrointestinal bleed) SNOMED Code(s): 21223810 Code(s): K92.2 - GASTROINTESTINAL HEMORRHAGE, UNSPECIFIED Status: Acute (3) DVT prophylaxis SNOMED Code(s): 683382462 ICD Code: [id number] - Status: Acute Current Visit: Yes Problem Details: (4) Dehydration, moderate SNOMED Code(s): 8354921405642 ICD Code: E86.0 - DEHYDRATION Status: Acute Current Visit: Yes (5) Diarrhea SNOMED Code(s): 15846763 ICD Code: R19.7 - DIARRHEA, UNSPECIFIED Status: Acute Current Visit: Yes Qualifiers: Diarrhea type: unspecified type Qualified Code(s): R19.7 - Diarrhea, unspecified (6) Elevated d-dimer SNOMED Code(s): 642974297 ICD Code: R79.89 - OTHER SPECIFIED ABNORMAL FINDINGS OF BLOOD CHEMISTRY Status: Acute Current Visit: Yes Problem Details: (7) Marie catheter in place SNOMED Code(s): 081342104 ICD Code: Z92.89 - PERSONAL HISTORY OF OTHER MEDICAL TREATMENT Status: Acute Current Visit: Yes (9) Microscopic hematuria SNOMED Code(s): 426919066 ICD Code: R31.29 - OTHER MICROSCOPIC HEMATURIA Status: Acute Current Visit: Yes (10) Type 2 DM with CKD and hypertension SNOMED Code(s): 55856695 ICD Code: E11.22 - TYPE 2 DIABETES MELLITUS W DIABETIC CHRONIC KIDNEY DISEASE ; I12.9 - HYPERTENSIVE CHRONIC KIDNEY DISEASE W STG 1-4/UNSP CHR KDNY Status: Acute Current Visit: Yes (11) CKD stage 3 due to type 2 diabetes mellitus SNOMED Code(s): 593980369079 ICD Code: E11.22 - TYPE 2 DIABETES MELLITUS W DIABETIC CHRONIC KIDNEY DISEASE ; N18.3 - CHRONIC KIDNEY DISEASE, STAGE 3 (MODERATE) Status: Chronic Current Visit: Yes Problem Details: (12) HTN (hypertension) SNOMED Code(s): 77318043 ICD Code: I10 - ESSENTIAL (PRIMARY) HYPERTENSION Status: Chronic Current Visit: Yes Problem Details: Continue current meds. (13) Hyperlipidemia SNOMED Code(s): 84252348 ICD Code: E78.5 - HYPERLIPIDEMIA, UNSPECIFIED Status: Chronic Current Visit: Yes Problem Details: Untreated because of age. - Plan Plan:: will switch to oral abx after todays dose. see how she does with marie out. discussed having a colonoscopy outpt in the next month after acute inflammation has subsided. insulin changes made and reviewed. crp improved. white count normal. electrolyes normal, dried her out a bit with the lasix but is doing well making urine. drinking fluids. anticipate possible discharge home tomorrow. she is very excited about this and admits she now feels ready as she lives alone.
[2016-12-27] MEDS: Docusate Sodium 100 MG Cap PO SCH (13:53)
[2016-12-27] MEDS: metroNIDAZOLE 500 MG Tab PO SCH (16:24)
[2016-12-27] MEDS: Zolpidem 5 MG Tab PO SCH (20:32)
[2016-12-27] MEDS ORDERED: Insulin Detemir 100 Units/ML 3 ML Pen SUBCUT SCH (21:00)
[2016-12-28] MEDS: metroNIDAZOLE 500 MG Tab PO SCH ×2 (01:24→07:59)
[2016-12-28] MEDS: Insulin Aspart 100 Units/ML 3 ML Pen SUBCUT SCH ×2 (07:59→11:29)
[2016-12-28] MEDS: Heparin Sodium 5,000 Units/ML Vial SUBCUT SCH (08:03)
[2016-12-28] MEDS: Hydrochlorothiazide/Lisinopril 12.5-20 MG Tab PO SCH (08:08)
[2016-12-28] MEDS: amLODIPine 5 MG Tab PO SCH (08:09)
[2016-12-28] MEDS: Multivitamin Tab PO SCH (08:10)
[2016-12-28] MEDS: Docusate Sodium 100 MG Cap PO SCH (08:10)
[2016-12-28] MEDS: Aspirin 325 MG Tab.EC PO SCH (08:10)
--- NOTE | 2016-12-28 11:25 | CR ---
INDICATION: Follow-up effusion/pulmonary edema. CHEST: PA and lateral views of the chest, 12/28/2016, were compared with 2016 and 12/21/2016, again revealing evidence of exogenous obesity, COPD, and ASHD with LVE. Demineralization compatible with osteoporosis is also suggested. Decreased pleural effusions and parenchymal changes are noted at the lung bases , compatible with resolving pneumonia and pleuritis. Residual remains, however , especially on the left, with question of some atelectatic change on the left. No other change or new acute process was identified. IMPRESSION: Improving appearance of the chest, resolving bibasilar pneumonia and pleuritis. Residual is still present. Follow-up to clearing recommended. MTDD
--- NOTE | 2016-12-28 13:58 | PCM.DCSUM1 ---
Discharge Summary - Hospital Course Free Text/Narrative:: Ms. Mckenzie is a pleasant 86-year-old female who was admitted after a bout of sudden onset abdominal pain/cramping with severe diarrhea, nausea, and overall dehydration prior to this brought her into the ER. She was noted to have definitively elevated white count, glucose elevation with her known insulin- dependent diabetes mellitus electrolyte disturbance with her known chronic kidney disease, community-acquired pneumonia for which she was having dyspnea and hypoxia on presentation which improved with nebulization oxygenation. Imaging demonstrated lower lobe pneumonia as well as severe acute colitis of unknown etiology. Presumed to be infectious. Started on IV quinolones and Flagyl. C. difficile was negative. All cultures negative. Hemoccult was positive. IV fluids did result in a bout of pulmonary edema which we were able to remedy with IV Lasix. She did have a Mcmillan catheter in place for roughly 3 days to help us with strict ins and outs as well as patient comfort she was getting up frequently at night and unable to sleep. Her appetite was greatly reduced and so we had to work on that. Never had a history of colonoscopy for IBD/IBS. Management of her additional comorbidities such as her hypertension were addressed without complication, her insulin-dependent diabetes mellitus was also addressed by utilizing therapeutic insulin substitution and adjusting in order to keep glucose levels less than 200 mg/dL. She did very well during her stay, imaging of the chest shows clearing, repeat imaging of the abdomen shows clearing of the colitis. We'll be sending her home on an extended course of oral antibiotics with close follow-up with her PCP to arrange for repeat chest x-ray roughly 6 weeks as well as colonoscopy on or about that time as well. All questions have been answered and she is discharged today to home. It has been a pleasure working with this wonderful woman and participating cares. I have called and updated her son. - Discharge Data Discharge Date: 12/28/16 Discharge Disposition: Home, Self-Care 01 Condition: Good - Discharge Diagnosis/Problem(s) (1) CAP (community acquired pneumonia) SNOMED Code(s): 862576379 ICD Code: J18.9 - PNEUMONIA, UNSPECIFIED ORGANISM Status: Acute (2) Colitis SNOMED Code(s): 07752415 ICD Code: K52.9 - NONINFECTIVE GASTROENTERITIS AND COLITIS, UNSPECIFIED Status: Acute (3) DVT prophylaxis SNOMED Code(s): 523125292 ICD Code: [id number] - Status: Acute (4) Dehydration, moderate SNOMED Code(s): 7850715001690 ICD Code: E86.0 - DEHYDRATION Status: Acute (5) Diarrhea SNOMED Code(s): 71512255 ICD Code: R19.7 - DIARRHEA, UNSPECIFIED Status: Acute Qualifiers: Diarrhea type: unspecified type Qualified Code(s): R19.7 - Diarrhea, unspecified (6) Elevated d-dimer SNOMED Code(s): 039812106 ICD Code: R79.89 - OTHER SPECIFIED ABNORMAL FINDINGS OF BLOOD CHEMISTRY Status: Acute (7) Mcmillan catheter in place SNOMED Code(s): 867761142 ICD Code: Z92.89 - PERSONAL HISTORY OF OTHER MEDICAL TREATMENT Status: Acute (8) GI (gastrointestinal bleed) SNOMED Code(s): 86715772 ICD Code: K92.2 - GASTROINTESTINAL HEMORRHAGE, UNSPECIFIED Status: Acute (9) Microscopic hematuria SNOMED Code(s): 572327590 ICD Code: R31.29 - OTHER MICROSCOPIC HEMATURIA Status: Acute (10) Type 2 DM with CKD and hypertension SNOMED Code(s): 30163685 ICD Code: E11.22 - TYPE 2 DIABETES MELLITUS W DIABETIC CHRONIC KIDNEY DISEASE ; I12.9 - HYPERTENSIVE CHRONIC KIDNEY DISEASE W STG 1-4/UNSP CHR KDNY Status: Acute (11) CKD stage 3 due to type 2 diabetes mellitus SNOMED Code(s): 202753927189 ICD Code: E11.22 - TYPE 2 DIABETES MELLITUS W DIABETIC CHRONIC KIDNEY DISEASE ; N18.3 - CHRONIC KIDNEY DISEASE, STAGE 3 (MODERATE) Status: Chronic (12) HTN (hypertension) SNOMED Code(s): 94994016 ICD Code: I10 - ESSENTIAL (PRIMARY) HYPERTENSION Status: Chronic Problem Details: Continue current meds. (13) Hyperlipidemia SNOMED Code(s): 65042689 ICD Code: E78.5 - HYPERLIPIDEMIA, UNSPECIFIED Status: Chronic Problem Details: Untreated because of age. - Patient Summary/Data Consults: Consultations 12/28/16 12:21 PT Evaluation and Treatment [CONS] Routine Please Evaluate and Treat. PT Reason for Consult: Ambulation Special Instructions: Please evaluate SHAN, may be discharged. This query below is only for informational purposes and is not editable. Admission Diagnosis/Problem: Colitis presumed to be due to infection Recommended Follow-up Testing/Procedures: Colonoscopy with Dr. Marc MD in 4wks. Appt needs to be set up for consult. - Patient Instructions Diet: Regular Diet as Tolerated Activity: As Tolerated, Cough & Deep Breathe (USE INCENTIVE SPIROMETER DAILY.) Showering/Bathing: May Shower Notify Provider of: Fever, Increased Pain, Nausea and/or Vomiting - Discharge Plan Prescriptions/Med Rec: Aspirin [Adult Low Dose Aspirin EC] 81 mg PO DAILY #90 tablet. Docusate Sodium [Colace] 100 mg PO DAILY #30 cap metroNIDAZOLE [Flagyl] 500 mg PO Q8H #18 tablet Home Medications: Home Meds Amitriptyline [Elavil] 10 mg PO BEDTIME PRN 12/21/16 [History] Insulin Lispro Prot/Lispro [HumaLOG Mix 75-25] 40 units SUBCUT BIDMEALS [History] Lisinopril/Hydrochlorothiazide [Lisinopril-Hctz 20-12.5 mg Tab] 2 tab PO DAILY 12/21/16 [History] Multivitamin [One Daily] 1 tab PO DAILY 12/21/16 [History] amLODIPine [Norvasc] 5 mg PO DAILY 12/21/16 [History] Acetaminophen [Tylenol] 650 mg PO Q4H PRN tablet 12/28/16 [Rx] Aspirin [Adult Low Dose Aspirin EC] 81 mg PO DAILY #90 tablet. 12/28/16 [Rx] Docusate Sodium [Colace] 100 mg PO DAILY #30 cap 12/28/16 [Rx] metroNIDAZOLE [Flagyl] 500 mg PO Q8H #18 tablet 12/28/16 [Rx] Patient Handouts: Colitis, Metronidazole tablets or capsules Referrals: Devon Tineo MD [Primary Care Provider] - (Schedule appt 2 and 6 wks for med rec review, to set up appt with Dr. Tran for colonoscopy and repeat chest xray in 6wks to ensure pneumonia resolution. ) - Discharge Summary/Plan Comment DC Time >30 min.: Yes - General Info Subjective Update: Tolerated breakfast and oral meds. admits she wishes to go home and feeling much better. her breathing is easier and doesnt get too winded when moving around in the halls. she has been on room air. no more abdominal pain. nursing without concerns. Pt/Ot without concerns. labs and imaging greatly improved. - Review of Systems Systems Review Comment: see subjective. - Patient Data Vitals - Most Recent: Last Vital Signs Temp 97.8 F 12/28/16 08:30 Pulse 88 12/28/16 10:45 Resp 18 12/28/16 08:30 BP 125/61 12/28/16 08:30 Pulse Ox 92 L 12/28/16 10:45 Weight - Most Recent: 98.112 kg I&O - Last 24 hours: Intake & Output 12/27/16 12/28/16 12/28/16 22:59 06:59 14:59 Intake Total 200 150 140 Output Total 300 200 Balance -100 150 -60 Imaging Impressions - Last 24 hrs: see accompanying reports. Lab Results - Last 24 hrs: Laboratory Tests 12/21/16 12/21/16 12/21/16 Range/Units 05:20 05:25 05:25 WBC 20.1 H (4.5-12.0) X10-3/uL RBC 4.63 (3.23-5.20) x10(6)uL Hgb 13.8 (11.5-15.5) g/dL Hct 40.8 (30.0-51.3) % MCV 88.2 (80-96) fL MCH 29.8 (27.7-33.6) pg MCHC 33.8 (32.2-35.4) g/dL RDW 12.2 (11.5-15.5) % Plt Count 264 (125-369) X10(3)uL MPV 7.4 (7.4-10.4) fL Neut % (Auto) (46-82) % Lymph % (Auto) (13-37) % [place] % (Auto) (4-12) % Eos % (Auto) (1.0-5.0) % Baso % (Auto) (0-2) % Neut # (Auto) (1.6-8.3) # Lymph # (Auto) (0.6-5.0) # [place] # (Auto) (0.0-1.3) # Eos # (Auto) (0.0-0.8) # Baso # (Auto) (0.0-0.2) # Add Manual Diff Yes Neutrophils % (Manual) 90 H (46-82) % Band Neutrophils % 1 (0-6) % Lymphocytes % (Manual) 7 L (13-37) % Monocytes % (Manual) 2 L (4-12) % Eosinophils % (Manual) (0-5) % D-Dimer, Quantitative > 5000 H (100-400) ng/mL Sodium 136 (135-145) mmol/L Potassium 5.0 (3.5-5.3) mmol/L Chloride 104 (100-110) mmol/L Carbon Dioxide 20 L (23-29) mmol/L BUN 42 H (8-23) mg/dL Creatinine 2.1 H* (0.6-1.3) mg/dL Est Cr Clr Drug Dosing 14.93 mL/min Estimated GFR (MDRD) 22 L (>60) BUN/Creatinine Ratio 20.0 (9-20) Glucose 245 H (80-116) mg/dL POC Glucose (80-116) mg/dL Lactic Acid (0.5-2.2) mmol/L Calcium 9.2 (8.6-10.2) mg/dL Total Bilirubin 0.8 (0.1-1.3) mg/dL AST 31 H (5-27) IU/L ALT 31 H (14-26) IU/L Alkaline Phosphatase 51 L (56-112) IU/L Lactate Dehydrogenase (120-160) IU/L C-Reactive Protein (0.0-1.0) mg/dL NT-Pro-B Natriuret Pep (5-450) pg/mL Total Protein 7.1 (6.0-8.0) g/dL Albumin 3.7 (3.2-4.6) g/dL Globulin 3.4 g/dL Albumin/Globulin Ratio 1.1 Urine Color (YELLOW) Urine Appearance (CLEAR) Urine pH (5.0-6.5) Ur Specific [place] (1.010-1.025) Urine Protein (NEGATIVE) mg/dL Urine Glucose (UA) (NEGATIVE) mg/dL Urine Ketones (NEGATIVE) mg/dL Urine Occult Blood (NEGATIVE) Urine Nitrite (NEGATIVE) Urine Bilirubin (NEGATIVE) Urine Urobilinogen (NEGATIVE) mg/dL Ur Leukocyte Esterase (NEGATIVE) Urine RBC (0) Urine WBC (0) Ur Squamous Epith Cells (NS,R,O) Urine Bacteria (NS) 12/21/16 12/21/16 12/21/16 Range/Units 09:25 10:20 12:55 WBC (4.5-12.0) X10-3/uL RBC (3.23-5.20) x10(6)uL Hgb (11.5-15.5) g/dL Hct (30.0-51.3) % MCV (80-96) fL MCH (27.7-33.6) pg MCHC (32.2-35.4) g/dL RDW (11.5-15.5) % Plt Count (125-369) X10(3)uL MPV (7.4-10.4) fL Neut % (Auto) (46-82) % Lymph % (Auto) (13-37) % [place] % (Auto) (4-12) % Eos % (Auto) (1.0-5.0) % Baso % (Auto) (0-2) % Neut # (Auto) (1.6-8.3) # Lymph # (Auto) (0.6-5.0) # [place] # (Auto) (0.0-1.3) # Eos # (Auto) (0.0-0.8) # Baso # (Auto) (0.0-0.2) # Add Manual Diff Neutrophils % (Manual) (46-82) % Band Neutrophils % (0-6) % Lymphocytes % (Manual) (13-37) % Monocytes % (Manual) (4-12) % Eosinophils % (Manual) (0-5) % D-Dimer, Quantitative (100-400) ng/mL Sodium (135-145) mmol/L Potassium (3.5-5.3) mmol/L Chloride (100-110) mmol/L Carbon Dioxide (23-29) mmol/L BUN (8-23) mg/dL Creatinine 1.9 H 1.8 H (0.6-1.3) mg/dL Est Cr Clr Drug Dosing 16.50 17.41 mL/min Estimated GFR (MDRD) 25 L 27 L (>60) BUN/Creatinine Ratio (9-20) Glucose (80-116) mg/dL POC Glucose (80-116) mg/dL Lactic Acid 1.6 (0.5-2.2) mmol/L Calcium (8.6-10.2) mg/dL Total Bilirubin (0.1-1.3) mg/dL AST (5-27) IU/L ALT (14-26) IU/L Alkaline Phosphatase (56-112) IU/L Lactate Dehydrogenase (120-160) IU/L C-Reactive Protein (0.0-1.0) mg/dL NT-Pro-B Natriuret Pep (5-450) pg/mL Total Protein (6.0-8.0) g/dL Albumin (3.2-4.6) g/dL Globulin g/dL Albumin/Globulin Ratio Urine Color (YELLOW) Urine Appearance (CLEAR) Urine pH (5.0-6.5) Ur Specific [place] (1.010-1.025) Urine Protein (NEGATIVE) mg/dL Urine Glucose (UA) (NEGATIVE) mg/dL Urine Ketones (NEGATIVE) mg/dL Urine Occult Blood (NEGATIVE) Urine Nitrite (NEGATIVE) Urine Bilirubin (NEGATIVE) Urine Urobilinogen (NEGATIVE) mg/dL Ur Leukocyte Esterase (NEGATIVE) Urine RBC (0) Urine WBC (0) Ur Squamous Epith Cells (NS,R,O) Urine Bacteria (NS) 12/21/16 12/22/16 12/22/16 Range/Units 21:28 03:15 06:35 WBC 22.4 H (4.5-12.0) X10-3/uL RBC 3.56 (3.23-5.20) x10(6)uL Hgb 11.2 L (11.5-15.5) g/dL Hct 31.4 (30.0-51.3) % MCV 88.3 (80-96) fL MCH 31.4 (27.7-33.6) pg MCHC 35.6 H (32.2-35.4) g/dL RDW 12.5 (11.5-15.5) % Plt Count 202 (125-369) X10(3)uL MPV 7.5 (7.4-10.4) fL Neut % (Auto) (46-82) % Lymph % (Auto) (13-37) % [place] % (Auto) (4-12) % Eos % (Auto) (1.0-5.0) % Baso % (Auto) (0-2) % Neut # (Auto) (1.6-8.3) # Lymph # (Auto) (0.6-5.0) # [place] # (Auto) (0.0-1.3) # Eos # (Auto) (0.0-0.8) # Baso # (Auto) (0.0-0.2) # Add Manual Diff Yes Neutrophils % (Manual) 86 H (46-82) % Band Neutrophils % (0-6) % Lymphocytes % (Manual) 9 L (13-37) % Monocytes % (Manual) 5 (4-12) % Eosinophils % (Manual) (0-5) % D-Dimer, Quantitative (100-400) ng/mL Sodium (135-145) mmol/L Potassium (3.5-5.3) mmol/L Chloride (100-110) mmol/L Carbon Dioxide (23-29) mmol/L BUN (8-23) mg/dL Creatinine (0.6-1.3) mg/dL Est Cr Clr Drug Dosing mL/min Estimated GFR (MDRD) (>60) BUN/Creatinine Ratio (9-20) Glucose (80-116) mg/dL POC Glucose 324 H (80-116) mg/dL Lactic Acid (0.5-2.2) mmol/L Calcium (8.6-10.2) mg/dL Total Bilirubin (0.1-1.3) mg/dL AST (5-27) IU/L ALT (14-26) IU/L Alkaline Phosphatase (56-112) IU/L Lactate Dehydrogenase (120-160) IU/L C-Reactive Protein (0.0-1.0) mg/dL NT-Pro-B Natriuret Pep (5-450) pg/mL Total Protein (6.0-8.0) g/dL Albumin (3.2-4.6) g/dL Globulin g/dL Albumin/Globulin Ratio Urine Color Yellow (YELLOW) Urine Appearance Slightly cloudy (CLEAR) Urine pH 5.0 (5.0-6.5) Ur Specific [place] 1.020 (1.010-1.025) Urine Protein Negative (NEGATIVE) mg/dL Urine Glucose (UA) 100 H (NEGATIVE) mg/dL Urine Ketones Negative (NEGATIVE) mg/dL Urine Occult Blood Moderate H (NEGATIVE) Urine Nitrite Negative (NEGATIVE) Urine Bilirubin Negative (NEGATIVE) Urine Urobilinogen Normal (NEGATIVE) mg/dL Ur Leukocyte Esterase Small H (NEGATIVE) Urine RBC 5-10 (0) Urine WBC 0-5 (0) Ur Squamous Epith Cells Few H (NS,R,O) Urine Bacteria Few H (NS) 12/22/16 12/22/16 12/22/16 Range/Units 06:35 07:38 11:53 WBC (4.5-12.0) X10-3/uL RBC (3.23-5.20) x10(6)uL Hgb (11.5-15.5) g/dL Hct (30.0-51.3) % MCV (80-96) fL MCH (27.7-33.6) pg MCHC (32.2-35.4) g/dL RDW (11.5-15.5) % Plt Count (125-369) X10(3)uL MPV (7.4-10.4) fL Neut % (Auto) (46-82) % Lymph % (Auto) (13-37) % [place] % (Auto) (4-12) % Eos % (Auto) (1.0-5.0) % Baso % (Auto) (0-2) % Neut # (Auto) (1.6-8.3) # Lymph # (Auto) (0.6-5.0) # [place] # (Auto) (0.0-1.3) # Eos # (Auto) (0.0-0.8) # Baso # (Auto) (0.0-0.2) # Add Manual Diff Neutrophils % (Manual) (46-82) % Band Neutrophils % (0-6) % Lymphocytes % (Manual) (13-37) % Monocytes % (Manual) (4-12) % Eosinophils % (Manual) (0-5) % D-Dimer, Quantitative (100-400) ng/mL Sodium 135 (135-145) mmol/L Potassium 4.4 (3.5-5.3) mmol/L Chloride 106 (100-110) mmol/L Carbon Dioxide 19 L (23-29) mmol/L BUN 29 H D (8-23) mg/dL Creatinine 1.6 H (0.6-1.3) mg/dL Est Cr Clr Drug Dosing 19.59 mL/min Estimated GFR (MDRD) 30 L (>60) BUN/Creatinine Ratio 18.1 (9-20) Glucose 253 H (80-116) mg/dL POC Glucose 265 H 217 H (80-116) mg/dL Lactic Acid (0.5-2.2) mmol/L Calcium 7.8 L (8.6-10.2) mg/dL Total Bilirubin 0.6 (0.1-1.3) mg/dL AST 28 H (5-27) IU/L ALT 22 D (14-26) IU/L Alkaline Phosphatase 42 L (56-112) IU/L Lactate Dehydrogenase (120-160) IU/L C-Reactive Protein (0.0-1.0) mg/dL NT-Pro-B Natriuret Pep (5-450) pg/mL Total Protein 5.6 L (6.0-8.0) g/dL Albumin 2.8 L (3.2-4.6) g/dL Globulin 2.8 g/dL Albumin/Globulin Ratio 1.0 Urine Color (YELLOW) Urine Appearance (CLEAR) Urine pH (5.0-6.5) Ur Specific [place] (1.010-1.025) Urine Protein (NEGATIVE) mg/dL Urine Glucose (UA) (NEGATIVE) mg/dL Urine Ketones (NEGATIVE) mg/dL Urine Occult Blood (NEGATIVE) Urine Nitrite (NEGATIVE) Urine Bilirubin (NEGATIVE) Urine Urobilinogen (NEGATIVE) mg/dL Ur Leukocyte Esterase (NEGATIVE) Urine RBC (0) Urine WBC (0) Ur Squamous Epith Cells (NS,R,O) Urine Bacteria (NS) 12/22/16 12/22/16 12/23/16 Range/Units 18:46 21:19 05:00 WBC (4.5-12.0) X10-3/uL RBC (3.23-5.20) x10(6)uL Hgb (11.5-15.5) g/dL Hct (30.0-51.3) % MCV (80-96) fL MCH (27.7-33.6) pg MCHC (32.2-35.4) g/dL RDW (11.5-15.5) % Plt Count (125-369) X10(3)uL MPV (7.4-10.4) fL Neut % (Auto) (46-82) % Lymph % (Auto) (13-37) % [place] % (Auto) (4-12) % Eos % (Auto) (1.0-5.0) % Baso % (Auto) (0-2) % Neut # (Auto) (1.6-8.3) # Lymph # (Auto) (0.6-5.0) # [place] # (Auto) (0.0-1.3) # Eos # (Auto) (0.0-0.8) # Baso # (Auto) (0.0-0.2) # Add Manual Diff Neutrophils % (Manual) (46-82) % Band Neutrophils % (0-6) % Lymphocytes % (Manual) (13-37) % Monocytes % (Manual) (4-12) % Eosinophils % (Manual) (0-5) % D-Dimer, Quantitative (100-400) ng/mL Sodium (135-145) mmol/L Potassium (3.5-5.3) mmol/L Chloride (100-110) mmol/L Carbon Dioxide (23-29) mmol/L BUN (8-23) mg/dL Creatinine (0.6-1.3) mg/dL Est Cr Clr Drug Dosing mL/min Estimated GFR (MDRD) (>60) BUN/Creatinine Ratio (9-20) Glucose (80-116) mg/dL POC Glucose 243 H 206 H (80-116) mg/dL Lactic Acid (0.5-2.2) mmol/L Calcium (8.6-10.2) mg/dL Total Bilirubin (0.1-1.3) mg/dL AST (5-27) IU/L ALT (14-26) IU/L Alkaline Phosphatase (56-112) IU/L Lactate Dehydrogenase (120-160) IU/L C-Reactive Protein (0.0-1.0) mg/dL NT-Pro-B Natriuret Pep (5-450) pg/mL Total Protein (6.0-8.0) g/dL Albumin (3.2-4.6) g/dL Globulin g/dL Albumin/Globulin Ratio Urine Color Yellow (YELLOW) Urine Appearance Clear (CLEAR) Urine pH 5.0 (5.0-6.5) Ur Specific [place] 1.010 (1.010-1.025) Urine Protein Trace (NEGATIVE) mg/dL Urine Glucose (UA) Normal (NEGATIVE) mg/dL Urine Ketones 15 H (NEGATIVE) mg/dL Urine Occult Blood Moderate H (NEGATIVE) Urine Nitrite Negative (NEGATIVE) Urine Bilirubin Negative (NEGATIVE) Urine Urobilinogen Normal (NEGATIVE) mg/dL Ur Leukocyte Esterase Negative (NEGATIVE) Urine RBC 5-10 (0) Urine WBC 0-5 (0) Ur Squamous Epith Cells Few H (NS,R,O) Urine Bacteria Few H (NS) 12/23/16 12/23/16 12/23/16 Range/Units 06:55 06:55 11:28 WBC 15.4 H (4.5-12.0) X10-3/uL RBC 3.93 (3.23-5.20) x10(6)uL Hgb 12.0 (11.5-15.5) g/dL Hct 35.0 (30.0-51.3) % MCV 89.3 (80-96) fL MCH 30.5 (27.7-33.6) pg MCHC 34.2 (32.2-35.4) g/dL RDW 12.3 (11.5-15.5) % Plt Count 235 (125-369) X10(3)uL MPV 7.3 L (7.4-10.4) fL Neut % (Auto) (46-82) % Lymph % (Auto) (13-37) % [place] % (Auto) (4-12) % Eos % (Auto) (1.0-5.0) % Baso % (Auto) (0-2) % Neut # (Auto) (1.6-8.3) # Lymph # (Auto) (0.6-5.0) # [place] # (Auto) (0.0-1.3) # Eos # (Auto) (0.0-0.8) # Baso # (Auto) (0.0-0.2) # Add Manual Diff Yes Neutrophils % (Manual) 74 (46-82) % Band Neutrophils % (0-6) % Lymphocytes % (Manual) 17 (13-37) % Monocytes % (Manual) 8 (4-12) % Eosinophils % (Manual) 1 (0-5) % D-Dimer, Quantitative (100-400) ng/mL Sodium 136 (135-145) mmol/L Potassium 4.6 (3.5-5.3) mmol/L Chloride 110 (100-110) mmol/L Carbon Dioxide 18 L (23-29) mmol/L BUN 24 H (8-23) mg/dL Creatinine 1.3 (0.6-1.3) mg/dL Est Cr Clr Drug Dosing 24.11 mL/min Estimated GFR (MDRD) 39 L (>60) BUN/Creatinine Ratio 18.5 (9-20) Glucose 226 H (80-116) mg/dL POC Glucose 221 H (80-116) mg/dL Lactic Acid (0.5-2.2) mmol/L Calcium 8.1 L (8.6-10.2) mg/dL Total Bilirubin 0.5 (0.1-1.3) mg/dL AST 38 H D (5-27) IU/L ALT 23 (14-26) IU/L Alkaline Phosphatase 51 L (56-112) IU/L Lactate Dehydrogenase (120-160) IU/L C-Reactive Protein (0.0-1.0) mg/dL NT-Pro-B Natriuret Pep (5-450) pg/mL Total Protein 6.7 (6.0-8.0) g/dL Albumin 2.9 L (3.2-4.6) g/dL Globulin 3.8 g/dL Albumin/Globulin Ratio 0.8 Urine Color (YELLOW) Urine Appearance (CLEAR) Urine pH (5.0-6.5) Ur Specific [place] (1.010-1.025) Urine Protein (NEGATIVE) mg/dL Urine Glucose (UA) (NEGATIVE) mg/dL Urine Ketones (NEGATIVE) mg/dL Urine Occult Blood (NEGATIVE) Urine Nitrite (NEGATIVE) Urine Bilirubin (NEGATIVE) Urine Urobilinogen (NEGATIVE) mg/dL Ur Leukocyte Esterase (NEGATIVE) Urine RBC (0) Urine WBC (0) Ur Squamous Epith Cells (NS,R,O) Urine Bacteria (NS) 12/23/16 12/23/16 12/24/16 Range/Units 17:42 20:04 06:14 WBC (4.5-12.0) X10-3/uL RBC (3.23-5.20) x10(6)uL Hgb (11.5-15.5) g/dL Hct (30.0-51.3) % MCV (80-96) fL MCH (27.7-33.6) pg MCHC (32.2-35.4) g/dL RDW (11.5-15.5) % Plt Count (125-369) X10(3)uL MPV (7.4-10.4) fL Neut % (Auto) (46-82) % Lymph % (Auto) (13-37) % [place] % (Auto) (4-12) % Eos % (Auto) (1.0-5.0) % Baso % (Auto) (0-2) % Neut # (Auto) (1.6-8.3) # Lymph # (Auto) (0.6-5.0) # [place] # (Auto) (0.0-1.3) # Eos # (Auto) (0.0-0.8) # Baso # (Auto) (0.0-0.2) # Add Manual Diff Neutrophils % (Manual) (46-82) % Band Neutrophils % (0-6) % Lymphocytes % (Manual) (13-37) % Monocytes % (Manual) (4-12) % Eosinophils % (Manual) (0-5) % D-Dimer, Quantitative (100-400) ng/mL Sodium (135-145) mmol/L Potassium (3.5-5.3) mmol/L Chloride (100-110) mmol/L Carbon Dioxide (23-29) mmol/L BUN (8-23) mg/dL Creatinine (0.6-1.3) mg/dL Est Cr Clr Drug Dosing mL/min Estimated GFR (MDRD) (>60) BUN/Creatinine Ratio (9-20) Glucose (80-116) mg/dL POC Glucose 244 H 291 H 243 H (80-116) mg/dL Lactic Acid (0.5-2.2) mmol/L Calcium (8.6-10.2) mg/dL Total Bilirubin (0.1-1.3) mg/dL AST (5-27) IU/L ALT (14-26) IU/L Alkaline Phosphatase (56-112) IU/L Lactate Dehydrogenase (120-160) IU/L C-Reactive Protein (0.0-1.0) mg/dL NT-Pro-B Natriuret Pep (5-450) pg/mL Total Protein (6.0-8.0) g/dL Albumin (3.2-4.6) g/dL Globulin g/dL Albumin/Globulin Ratio Urine Color (YELLOW) Urine Appearance (CLEAR) Urine pH (5.0-6.5) Ur Specific [place] (1.010-1.025) Urine Protein (NEGATIVE) mg/dL Urine Glucose (UA) (NEGATIVE) mg/dL Urine Ketones (NEGATIVE) mg/dL Urine Occult Blood (NEGATIVE) Urine Nitrite (NEGATIVE) Urine Bilirubin (NEGATIVE) Urine Urobilinogen (NEGATIVE) mg/dL Ur Leukocyte Esterase (NEGATIVE) Urine RBC (0) Urine WBC (0) Ur Squamous Epith Cells (NS,R,O) Urine Bacteria (NS) 12/24/16 12/24/16 12/24/16 Range/Units 11:37 12:30 12:30 WBC 10.3 (4.5-12.0) X10-3/uL RBC 4.17 (3.23-5.20) x10(6)uL Hgb 12.0 (11.5-15.5) g/dL Hct 37.4 (30.0-51.3) % MCV 89.6 (80-96) fL MCH 28.7 (27.7-33.6) pg MCHC 32.0 L (32.2-35.4) g/dL RDW 12.5 (11.5-15.5) % Plt Count 267 (125-369) X10(3)uL MPV 7.2 L (7.4-10.4) fL Neut % (Auto) 80.0 (46-82) % Lymph % (Auto) 9.9 L (13-37) % [place] % (Auto) 9.1 (4-12) % Eos % (Auto) 1 (1.0-5.0) % Baso % (Auto) 0 (0-2) % Neut # (Auto) 8.3 (1.6-8.3) # Lymph # (Auto) 1.0 (0.6-5.0) # [place] # (Auto) 0.9 (0.0-1.3) # Eos # (Auto) 0.1 (0.0-0.8) # Baso # (Auto) 0.0 (0.0-0.2) # Add Manual Diff Neutrophils % (Manual) (46-82) % Band Neutrophils % (0-6) % Lymphocytes % (Manual) (13-37) % Monocytes % (Manual) (4-12) % Eosinophils % (Manual) (0-5) % D-Dimer, Quantitative (100-400) ng/mL Sodium 134 L (135-145) mmol/L Potassium 4.6 (3.5-5.3) mmol/L Chloride 105 D (100-110) mmol/L Carbon Dioxide 21 L (23-29) mmol/L BUN 23 (8-23) mg/dL Creatinine 1.3 (0.6-1.3) mg/dL Est Cr Clr Drug Dosing 24.11 mL/min Estimated GFR (MDRD) 39 L (>60) BUN/Creatinine Ratio 17.7 (9-20) Glucose 327 H D (80-116) mg/dL POC Glucose 324 H D (80-116) mg/dL Lactic Acid (0.5-2.2) mmol/L Calcium 8.6 (8.6-10.2) mg/dL Total Bilirubin 0.5 (0.1-1.3) mg/dL AST 32 H D (5-27) IU/L ALT 25 (14-26) IU/L Alkaline Phosphatase 52 L (56-112) IU/L Lactate Dehydrogenase 241 H (120-160) IU/L C-Reactive Protein 16.6 H* (0.0-1.0) mg/dL NT-Pro-B Natriuret Pep (5-450) pg/mL Total Protein 7.1 (6.0-8.0) g/dL Albumin 3.0 L (3.2-4.6) g/dL Globulin 4.1 g/dL Albumin/Globulin Ratio 0.7 Urine Color (YELLOW) Urine Appearance (CLEAR) Urine pH (5.0-6.5) Ur Specific [place] (1.010-1.025) Urine Protein (NEGATIVE) mg/dL Urine Glucose (UA) (NEGATIVE) mg/dL Urine Ketones (NEGATIVE) mg/dL Urine Occult Blood (NEGATIVE) Urine Nitrite (NEGATIVE) Urine Bilirubin (NEGATIVE) Urine Urobilinogen (NEGATIVE) mg/dL Ur Leukocyte Esterase (NEGATIVE) Urine RBC (0) Urine WBC (0) Ur Squamous Epith Cells (NS,R,O) Urine Bacteria (NS) 12/24/16 12/24/16 12/24/16 Range/Units 14:00 17:45 20:38 WBC (4.5-12.0) X10-3/uL RBC (3.23-5.20) x10(6)uL Hgb (11.5-15.5) g/dL Hct (30.0-51.3) % MCV (80-96) fL MCH (27.7-33.6) pg MCHC (32.2-35.4) g/dL RDW (11.5-15.5) % Plt Count (125-369) X10(3)uL MPV (7.4-10.4) fL Neut % (Auto) (46-82) % Lymph % (Auto) (13-37) % [place] % (Auto) (4-12) % Eos % (Auto) (1.0-5.0) % Baso % (Auto) (0-2) % Neut # (Auto) (1.6-8.3) # Lymph # (Auto) (0.6-5.0) # [place] # (Auto) (0.0-1.3) # Eos # (Auto) (0.0-0.8) # Baso # (Auto) (0.0-0.2) # Add Manual Diff Neutrophils % (Manual) (46-82) % Band Neutrophils % (0-6) % Lymphocytes % (Manual) (13-37) % Monocytes % (Manual) (4-12) % Eosinophils % (Manual) (0-5) % D-Dimer, Quantitative (100-400) ng/mL Sodium (135-145) mmol/L Potassium (3.5-5.3) mmol/L Chloride (100-110) mmol/L Carbon Dioxide (23-29) mmol/L BUN (8-23) mg/dL Creatinine (0.6-1.3) mg/dL Est Cr Clr Drug Dosing mL/min Estimated GFR (MDRD) (>60) BUN/Creatinine Ratio (9-20) Glucose (80-116) mg/dL POC Glucose 246 H 333 H D (80-116) mg/dL Lactic Acid (0.5-2.2) mmol/L Calcium (8.6-10.2) mg/dL Total Bilirubin (0.1-1.3) mg/dL AST (5-27) IU/L ALT (14-26) IU/L Alkaline Phosphatase (56-112) IU/L Lactate Dehydrogenase (120-160) IU/L C-Reactive Protein (0.0-1.0) mg/dL NT-Pro-B Natriuret Pep (5-450) pg/mL Total Protein (6.0-8.0) g/dL Albumin (3.2-4.6) g/dL Globulin g/dL Albumin/Globulin Ratio Urine Color Yellow (YELLOW) Urine Appearance Slightly cloudy (CLEAR) Urine pH 5.0 (5.0-6.5) Ur Specific [place] 1.015 (1.010-1.025) Urine Protein 30 H (NEGATIVE) mg/dL Urine Glucose (UA) >1000 H (NEGATIVE) mg/dL Urine Ketones Negative (NEGATIVE) mg/dL Urine Occult Blood Moderate H (NEGATIVE) Urine Nitrite Negative (NEGATIVE) Urine Bilirubin Negative (NEGATIVE) Urine Urobilinogen Normal (NEGATIVE) mg/dL Ur Leukocyte Esterase Negative (NEGATIVE) Urine RBC 10-20 H (0) Urine WBC 0-5 (0) Ur Squamous Epith Cells Rare (NS,R,O) Urine Bacteria Many H (NS) 12/25/16 12/25/16 12/25/16 Range/Units 06:40 06:40 06:40 WBC 8.9 (4.5-12.0) X10-3/uL RBC 3.85 (3.23-5.20) x10(6)uL Hgb 11.6 (11.5-15.5) g/dL Hct 34.1 (30.0-51.3) % MCV 88.6 (80-96) fL MCH 30.1 (27.7-33.6) pg MCHC 34.0 (32.2-35.4) g/dL RDW 12.0 (11.5-15.5) % Plt Count 268 (125-369) X10(3)uL MPV 7.7 (7.4-10.4) fL Neut % (Auto) 72.2 (46-82) % Lymph % (Auto) 13.3 (13-37) % [place] % (Auto) 11.1 (4-12) % Eos % (Auto) 2 (1.0-5.0) % Baso % (Auto) 1 (0-2) % Neut # (Auto) 6.4 (1.6-8.3) # Lymph # (Auto) 1.2 (0.6-5.0) # [place] # (Auto) 1.0 (0.0-1.3) # Eos # (Auto) 0.2 (0.0-0.8) # Baso # (Auto) 0.1 (0.0-0.2) # Add Manual Diff Neutrophils % (Manual) (46-82) % Band Neutrophils % (0-6) % Lymphocytes % (Manual) (13-37) % Monocytes % (Manual) (4-12) % Eosinophils % (Manual) (0-5) % D-Dimer, Quantitative (100-400) ng/mL Sodium 137 (135-145) mmol/L Potassium 4.4 (3.5-5.3) mmol/L Chloride 103 (100-110) mmol/L Carbon Dioxide 24 (23-29) mmol/L BUN 24 H (8-23) mg/dL Creatinine 1.3 (0.6-1.3) mg/dL Est Cr Clr Drug Dosing 24.11 mL/min Estimated GFR (MDRD) 39 L (>60) BUN/Creatinine Ratio 18.5 (9-20) Glucose 319 H (80-116) mg/dL POC Glucose (80-116) mg/dL Lactic Acid (0.5-2.2) mmol/L Calcium 8.6 (8.6-10.2) mg/dL Total Bilirubin 0.6 (0.1-1.3) mg/dL AST 26 D (5-27) IU/L ALT 22 D (14-26) IU/L Alkaline Phosphatase 47 L (56-112) IU/L Lactate Dehydrogenase (120-160) IU/L C-Reactive Protein (0.0-1.0) mg/dL NT-Pro-B Natriuret Pep 3257 H (5-450) pg/mL Total Protein 6.6 (6.0-8.0) g/dL Albumin 2.9 L (3.2-4.6) g/dL Globulin 3.7 g/dL Albumin/Globulin Ratio 0.8 Urine Color (YELLOW) Urine Appearance (CLEAR) Urine pH (5.0-6.5) Ur Specific [place] (1.010-1.025) Urine Protein (NEGATIVE) mg/dL Urine Glucose (UA) (NEGATIVE) mg/dL Urine Ketones (NEGATIVE) mg/dL Urine Occult Blood (NEGATIVE) Urine Nitrite (NEGATIVE) Urine Bilirubin (NEGATIVE) Urine Urobilinogen (NEGATIVE) mg/dL Ur Leukocyte Esterase (NEGATIVE) Urine RBC (0) Urine WBC (0) Ur Squamous Epith Cells (NS,R,O) Urine Bacteria (NS) 12/25/16 12/25/16 12/25/16 Range/Units 11:34 17:13 20:25 WBC (4.5-12.0) X10-3/uL RBC (3.23-5.20) x10(6)uL Hgb (11.5-15.5) g/dL Hct (30.0-51.3) % MCV (80-96) fL MCH (27.7-33.6) pg MCHC (32.2-35.4) g/dL RDW (11.5-15.5) % Plt Count (125-369) X10(3)uL MPV (7.4-10.4) fL Neut % (Auto) (46-82) % Lymph % (Auto) (13-37) % [place] % (Auto) (4-12) % Eos % (Auto) (1.0-5.0) % Baso % (Auto) (0-2) % Neut # (Auto) (1.6-8.3) # Lymph # (Auto) (0.6-5.0) # [place] # (Auto) (0.0-1.3) # Eos # (Auto) (0.0-0.8) # Baso # (Auto) (0.0-0.2) # Add Manual Diff Neutrophils % (Manual) (46-82) % Band Neutrophils % (0-6) % Lymphocytes % (Manual) (13-37) % Monocytes % (Manual) (4-12) % Eosinophils % (Manual) (0-5) % D-Dimer, Quantitative (100-400) ng/mL Sodium (135-145) mmol/L Potassium (3.5-5.3) mmol/L Chloride (100-110) mmol/L Carbon Dioxide (23-29) mmol/L BUN (8-23) mg/dL Creatinine (0.6-1.3) mg/dL Est Cr Clr Drug Dosing mL/min Estimated GFR (MDRD) (>60) BUN/Creatinine Ratio (9-20) Glucose (80-116) mg/dL POC Glucose 302 H 226 H 310 H D (80-116) mg/dL Lactic Acid (0.5-2.2) mmol/L Calcium (8.6-10.2) mg/dL Total Bilirubin (0.1-1.3) mg/dL AST (5-27) IU/L ALT (14-26) IU/L Alkaline Phosphatase (56-112) IU/L Lactate Dehydrogenase (120-160) IU/L C-Reactive Protein (0.0-1.0) mg/dL NT-Pro-B Natriuret Pep (5-450) pg/mL Total Protein (6.0-8.0) g/dL Albumin (3.2-4.6) g/dL Globulin g/dL Albumin/Globulin Ratio Urine Color (YELLOW) Urine Appearance (CLEAR) Urine pH (5.0-6.5) Ur Specific [place] (1.010-1.025) Urine Protein (NEGATIVE) mg/dL Urine Glucose (UA) (NEGATIVE) mg/dL Urine Ketones (NEGATIVE) mg/dL Urine Occult Blood (NEGATIVE) Urine Nitrite (NEGATIVE) Urine Bilirubin (NEGATIVE) Urine Urobilinogen (NEGATIVE) mg/dL Ur Leukocyte Esterase (NEGATIVE) Urine RBC (0) Urine WBC (0) Ur Squamous Epith Cells (NS,R,O) Urine Bacteria (NS) 12/26/16 12/26/16 12/26/16 Range/Units 06:19 06:25 11:35 WBC 9.5 (4.5-12.0) X10-3/uL RBC 3.94 (3.23-5.20) x10(6)uL Hgb 11.9 (11.5-15.5) g/dL Hct 34.9 (30.0-51.3) % MCV 88.7 (80-96) fL MCH 30.1 (27.7-33.6) pg MCHC 33.9 (32.2-35.4) g/dL RDW 12.1 (11.5-15.5) % Plt Count 289 (125-369) X10(3)uL MPV 7.7 (7.4-10.4) fL Neut % (Auto) 64.6 (46-82) % Lymph % (Auto) 19.8 (13-37) % [place] % (Auto) 11.5 (4-12) % Eos % (Auto) 3 (1.0-5.0) % Baso % (Auto) 2 (0-2) % Neut # (Auto) 6.1 (1.6-8.3) # Lymph # (Auto) 1.9 (0.6-5.0) # [place] # (Auto) 1.1 (0.0-1.3) # Eos # (Auto) 0.2 (0.0-0.8) # Baso # (Auto) 0.2 (0.0-0.2) # Add Manual Diff Neutrophils % (Manual) (46-82) % Band Neutrophils % (0-6) % Lymphocytes % (Manual) (13-37) % Monocytes % (Manual) (4-12) % Eosinophils % (Manual) (0-5) % D-Dimer, Quantitative (100-400) ng/mL Sodium (135-145) mmol/L Potassium (3.5-5.3) mmol/L Chloride (100-110) mmol/L Carbon Dioxide (23-29) mmol/L BUN (8-23) mg/dL Creatinine (0.6-1.3) mg/dL Est Cr Clr Drug Dosing mL/min Estimated GFR (MDRD) (>60) BUN/Creatinine Ratio (9-20) Glucose (80-116) mg/dL POC Glucose 246 H 312 H (80-116) mg/dL Lactic Acid (0.5-2.2) mmol/L Calcium (8.6-10.2) mg/dL Total Bilirubin (0.1-1.3) mg/dL AST (5-27) IU/L ALT (14-26) IU/L Alkaline Phosphatase (56-112) IU/L Lactate Dehydrogenase (120-160) IU/L C-Reactive Protein (0.0-1.0) mg/dL NT-Pro-B Natriuret Pep (5-450) pg/mL Total Protein (6.0-8.0) g/dL Albumin (3.2-4.6) g/dL Globulin g/dL Albumin/Globulin Ratio Urine Color (YELLOW) Urine Appearance (CLEAR) Urine pH (5.0-6.5) Ur Specific [place] (1.010-1.025) Urine Protein (NEGATIVE) mg/dL Urine Glucose (UA) (NEGATIVE) mg/dL Urine Ketones (NEGATIVE) mg/dL Urine Occult Blood (NEGATIVE) Urine Nitrite (NEGATIVE) Urine Bilirubin (NEGATIVE) Urine Urobilinogen (NEGATIVE) mg/dL Ur Leukocyte Esterase (NEGATIVE) Urine RBC (0) Urine WBC (0) Ur Squamous Epith Cells (NS,R,O) Urine Bacteria (NS) 12/26/16 12/26/16 12/27/16 Range/Units 16:50 20:16 05:35 WBC 10.7 (4.5-12.0) X10-3/uL RBC 4.01 (3.23-5.20) x10(6)uL Hgb 11.8 (11.5-15.5) g/dL Hct 35.3 (30.0-51.3) % MCV 88.0 (80-96) fL MCH 29.5 (27.7-33.6) pg MCHC 33.5 (32.2-35.4) g/dL RDW 12.1 (11.5-15.5) % Plt Count 275 (125-369) X10(3)uL MPV (7.4-10.4) fL Neut % (Auto) (46-82) % Lymph % (Auto) (13-37) % [place] % (Auto) (4-12) % Eos % (Auto) (1.0-5.0) % Baso % (Auto) (0-2) % Neut # (Auto) (1.6-8.3) # Lymph # (Auto) (0.6-5.0) # [place] # (Auto) (0.0-1.3) # Eos # (Auto) (0.0-0.8) # Baso # (Auto) (0.0-0.2) # Add Manual Diff Neutrophils % (Manual) (46-82) % Band Neutrophils % (0-6) % Lymphocytes % (Manual) (13-37) % Monocytes % (Manual) (4-12) % Eosinophils % (Manual) (0-5) % D-Dimer, Quantitative (100-400) ng/mL Sodium (135-145) mmol/L Potassium (3.5-5.3) mmol/L Chloride (100-110) mmol/L Carbon Dioxide (23-29) mmol/L BUN (8-23) mg/dL Creatinine (0.6-1.3) mg/dL Est Cr Clr Drug Dosing mL/min Estimated GFR (MDRD) (>60) BUN/Creatinine Ratio (9-20) Glucose (80-116) mg/dL POC Glucose 185 H D 241 H (80-116) mg/dL Lactic Acid (0.5-2.2) mmol/L Calcium (8.6-10.2) mg/dL Total Bilirubin (0.1-1.3) mg/dL AST (5-27) IU/L ALT (14-26) IU/L Alkaline Phosphatase (56-112) IU/L Lactate Dehydrogenase (120-160) IU/L C-Reactive Protein (0.0-1.0) mg/dL NT-Pro-B Natriuret Pep (5-450) pg/mL Total Protein (6.0-8.0) g/dL Albumin (3.2-4.6) g/dL Globulin g/dL Albumin/Globulin Ratio Urine Color (YELLOW) Urine Appearance (CLEAR) Urine pH (5.0-6.5) Ur Specific [place] (1.010-1.025) Urine Protein (NEGATIVE) mg/dL Urine Glucose (UA) (NEGATIVE) mg/dL Urine Ketones (NEGATIVE) mg/dL Urine Occult Blood (NEGATIVE) Urine Nitrite (NEGATIVE) Urine Bilirubin (NEGATIVE) Urine Urobilinogen (NEGATIVE) mg/dL Ur Leukocyte Esterase (NEGATIVE) Urine RBC (0) Urine WBC (0) Ur Squamous Epith Cells (NS,R,O) Urine Bacteria (NS) 12/27/16 12/27/16 12/27/16 Range/Units 05:35 08:17 12:16 WBC (4.5-12.0) X10-3/uL RBC (3.23-5.20) x10(6)uL Hgb (11.5-15.5) g/dL Hct (30.0-51.3) % MCV (80-96) fL MCH (27.7-33.6) pg MCHC (32.2-35.4) g/dL RDW (11.5-15.5) % Plt Count (125-369) X10(3)uL MPV (7.4-10.4) fL Neut % (Auto) (46-82) % Lymph % (Auto) (13-37) % [place] % (Auto) (4-12) % Eos % (Auto) (1.0-5.0) % Baso % (Auto) (0-2) % Neut # (Auto) (1.6-8.3) # Lymph # (Auto) (0.6-5.0) # [place] # (Auto) (0.0-1.3) # Eos # (Auto) (0.0-0.8) # Baso # (Auto) (0.0-0.2) # Add Manual Diff Neutrophils % (Manual) (46-82) % Band Neutrophils % (0-6) % Lymphocytes % (Manual) (13-37) % Monocytes % (Manual) (4-12) % Eosinophils % (Manual) (0-5) % D-Dimer, Quantitative (100-400) ng/mL Sodium 136 (135-145) mmol/L Potassium 3.9 (3.5-5.3) mmol/L Chloride 100 (100-110) mmol/L Carbon Dioxide 25 (23-29) mmol/L BUN 24 H (8-23) mg/dL Creatinine 1.4 H (0.6-1.3) mg/dL Est Cr Clr Drug Dosing 22.39 mL/min Estimated GFR (MDRD) 36 L (>60) BUN/Creatinine Ratio 17.1 (9-20) Glucose 224 H D (80-116) mg/dL POC Glucose 239 H 208 H (80-116) mg/dL Lactic Acid (0.5-2.2) mmol/L Calcium 8.3 L (8.6-10.2) mg/dL Total Bilirubin 0.3 (0.1-1.3) mg/dL AST 28 H (5-27) IU/L ALT 20 (14-26) IU/L Alkaline Phosphatase 44 L (56-112) IU/L Lactate Dehydrogenase (120-160) IU/L C-Reactive Protein 4.4 H* (0.0-1.0) mg/dL NT-Pro-B Natriuret Pep 893 H (5-450) pg/mL Total Protein 6.2 (6.0-8.0) g/dL Albumin 2.6 L (3.2-4.6) g/dL Globulin 3.6 g/dL Albumin/Globulin Ratio 0.7 Urine Color (YELLOW) Urine Appearance (CLEAR) Urine pH (5.0-6.5) Ur Specific [place] (1.010-1.025) Urine Protein (NEGATIVE) mg/dL Urine Glucose (UA) (NEGATIVE) mg/dL Urine Ketones (NEGATIVE) mg/dL Urine Occult Blood (NEGATIVE) Urine Nitrite (NEGATIVE) Urine Bilirubin (NEGATIVE) Urine Urobilinogen (NEGATIVE) mg/dL Ur Leukocyte Esterase (NEGATIVE) Urine RBC (0) Urine WBC (0) Ur Squamous Epith Cells (NS,R,O) Urine Bacteria (NS) 12/27/16 12/27/16 12/28/16 Range/Units 16:54 20:34 07:50 WBC (4.5-12.0) X10-3/uL RBC (3.23-5.20) x10(6)uL Hgb (11.5-15.5) g/dL Hct (30.0-51.3) % MCV (80-96) fL MCH (27.7-33.6) pg MCHC (32.2-35.4) g/dL RDW (11.5-15.5) % Plt Count (125-369) X10(3)uL MPV (7.4-10.4) fL Neut % (Auto) (46-82) % Lymph % (Auto) (13-37) % [place] % (Auto) (4-12) % Eos % (Auto) (1.0-5.0) % Baso % (Auto) (0-2) % Neut # (Auto) (1.6-8.3) # Lymph # (Auto) (0.6-5.0) # [place] # (Auto) (0.0-1.3) # Eos # (Auto) (0.0-0.8) # Baso # (Auto) (0.0-0.2) # Add Manual Diff Neutrophils % (Manual) (46-82) % Band Neutrophils % (0-6) % Lymphocytes % (Manual) (13-37) % Monocytes % (Manual) (4-12) % Eosinophils % (Manual) (0-5) % D-Dimer, Quantitative (100-400) ng/mL Sodium (135-145) mmol/L Potassium (3.5-5.3) mmol/L Chloride (100-110) mmol/L Carbon Dioxide (23-29) mmol/L BUN (8-23) mg/dL Creatinine (0.6-1.3) mg/dL Est Cr Clr Drug Dosing mL/min Estimated GFR (MDRD) (>60) BUN/Creatinine Ratio (9-20) Glucose (80-116) mg/dL POC Glucose 254 H 191 H 181 H (80-116) mg/dL Lactic Acid (0.5-2.2) mmol/L Calcium (8.6-10.2) mg/dL Total Bilirubin (0.1-1.3) mg/dL AST (5-27) IU/L ALT (14-26) IU/L Alkaline Phosphatase (56-112) IU/L Lactate Dehydrogenase (120-160) IU/L C-Reactive Protein (0.0-1.0) mg/dL NT-Pro-B Natriuret Pep (5-450) pg/mL Total Protein (6.0-8.0) g/dL Albumin (3.2-4.6) g/dL Globulin g/dL Albumin/Globulin Ratio Urine Color (YELLOW) Urine Appearance (CLEAR) Urine pH (5.0-6.5) Ur Specific [place] (1.010-1.025) Urine Protein (NEGATIVE) mg/dL Urine Glucose (UA) (NEGATIVE) mg/dL Urine Ketones (NEGATIVE) mg/dL Urine Occult Blood (NEGATIVE) Urine Nitrite (NEGATIVE) Urine Bilirubin (NEGATIVE) Urine Urobilinogen (NEGATIVE) mg/dL Ur Leukocyte Esterase (NEGATIVE) Urine RBC (0) Urine WBC (0) Ur Squamous Epith Cells (NS,R,O) Urine Bacteria (NS) 12/28/ Range/Units 10:47 WBC (4.5-12.0) X10-3/uL RBC (3.23-5.20) x10(6)uL Hgb (11.5-15.5) g/dL Hct (30.0-51.3) % MCV (80-96) fL MCH (27.7-33.6) pg MCHC (32.2-35.4) g/dL RDW (11.5-15.5) % Plt Count (125-369) X10(3)uL MPV (7.4-10.4) fL Neut % (Auto) (46-82) % Lymph % (Auto) (13-37) % [place] % (Auto) (4-12) % Eos % (Auto) (1.0-5.0) % Baso % (Auto) (0-2) % Neut # (Auto) (1.6-8.3) # Lymph # (Auto) (0.6-5.0) # [place] # (Auto) (0.0-1.3) # Eos # (Auto) (0.0-0.8) # Baso # (Auto) (0.0-0.2) # Add Manual Diff Neutrophils % (Manual) (46-82) % Band Neutrophils % (0-6) % Lymphocytes % (Manual) (13-37) % Monocytes % (Manual) (4-12) % Eosinophils % (Manual) (0-5) % D-Dimer, Quantitative (100-400) ng/mL Sodium (135-145) mmol/L Potassium (3.5-5.3) mmol/L Chloride (100-110) mmol/L Carbon Dioxide (23-29) mmol/L BUN (8-23) mg/dL Creatinine (0.6-1.3) mg/dL Est Cr Clr Drug Dosing mL/min Estimated GFR (MDRD) (>60) BUN/Creatinine Ratio (9-20) Glucose (80-116) mg/dL POC Glucose 248 H (80-116) mg/dL Lactic Acid (0.5-2.2) mmol/L Calcium (8.6-10.2) mg/dL Total Bilirubin (0.1-1.3) mg/dL AST (5-27) IU/L ALT (14-26) IU/L Alkaline Phosphatase (56-112) IU/L Lactate Dehydrogenase (120-160) IU/L C-Reactive Protein (0.0-1.0) mg/dL NT-Pro-B Natriuret Pep (5-450) pg/mL Total Protein (6.0-8.0) g/dL Albumin (3.2-4.6) g/dL Globulin g/dL Albumin/Globulin Ratio Urine Color (YELLOW) Urine Appearance (CLEAR) Urine pH (5.0-6.5) Ur Specific [place] (1.010-1.025) Urine Protein (NEGATIVE) mg/dL Urine Glucose (UA) (NEGATIVE) mg/dL Urine Ketones (NEGATIVE) mg/dL Urine Occult Blood (NEGATIVE) Urine Nitrite (NEGATIVE) Urine Bilirubin (NEGATIVE) Urine Urobilinogen (NEGATIVE) mg/dL Ur Leukocyte Esterase (NEGATIVE) Urine RBC (0) Urine WBC (0) Ur Squamous Epith Cells (NS,R,O) Urine Bacteria (NS) SILVER Results - Last 24 hrs: Microbiology 12/26/16 17:15 Stool / Feces Stool Occult Blood (SILVER) - pos 12/25/16 14:30 Stool / Feces Clostridium difficile Toxin A&B (M) - Final NEGATIVE CDIFF TOXIN 12/21/16 09:25 Blood - Venous - Lab Draw Aerobic Blood Culture - Final NO GROWTH AFTER 5 DAYS 12/21/16 09:25 Blood - Venous - Lab Draw Anaerobic Blood Culture - Final 12/21/16 09:15 Blood - Venous Aerobic Blood Culture - Final NO GROWTH AFTER 5 DAYS 12/21/16 09:15 Blood - Venous Anaerobic Blood Culture - Final NO GROWTH AFTER 5 DAYS Med Orders - Current: Current Medications Acetaminophen (Tylenol) 650 mg PO Q4H PRN PRN Reason: Pain (Mild 1-3)/fever Amitriptyline HCl (Elavil) 10 mg PO BEDTIME PRN PRN Reason: nerve pain Amlodipine Besylate (Norvasc) 5 mg PO DAILY [facility] Last Admin: 12/28/16 08:09 Dose: 5 mg Aspirin (Ecotrin) 325 mg PO DAILY [facility] Last Admin: 12/28/16 08:10 Dose: 325 mg Docusate Sodium (Colace) 100 mg PO DAILY [facility] Last Admin: 12/28/16 08:10 Dose: Not Given Lisinopril/HCTZ (Lisinopril/Hctz 20-12.5 Mg) 2 tab PO DAILY [facility] Last Admin: 12/28/16 08:08 Dose: 2 tab Insulin Aspart (Novolog) 0 unit SUBCUT TIDMEALS [facility] PRN Reason: Protocol Last Admin: 12/28/16 11:29 Dose: 6 units Insulin Detemir (Levemir) 20 unit SUBCUT BEDTIME [facility] Last Admin: 12/27/16 20:32 Dose: 20 units Levofloxacin (Levaquin) 500 mg PO Q48H [facility] Levofloxacin (Levaquin) 250 mg PO Q48H [facility] Metronidazole (Flagyl) 500 mg PO Q8H [facility] Last Admin: 12/28/16 07:59 Dose: 500 mg Multivitamins/Minerals/Vitamin C (Tab-A-Jodie) 1 tab PO DAILY [facility] Last Admin: 12/28/16 08:10 Dose: 1 tab Sodium Chloride (Saline Flush) 10 ml FLUSH ASDIRECTED PRN PRN Reason: Keep Vein Open Last Admin: 12/27/16 10:16 Dose: 10 ml Discontinued Medications Diatrizoate Meglum/Diatrizoate Sod (Gastrografin 37%) 30 ml PO . DIRECTED ONE Stop: 12/26/16 12:31 Last Admin: 12/26/16 14:45 Dose: 30 ml Furosemide (Lasix) 40 mg IVPUSH NOW ONE Stop: 12/25/16 01:47 Last Admin: 12/25/16 02:05 Dose: 40 mg Furosemide (Lasix) 40 mg IVPUSH NOW ONE Stop: 12/25/16 10:55 Last Admin: 12/25/16 12:15 Dose: 40 mg Lisinopril/HCTZ (Lisinopril/Hctz 20-12.5 Mg) 2 tab PO DAILY [facility] Heparin Sodium (Porcine) (Heparin Sodium) 5,000 units SUBCUT Q12H [facility] Last Admin: 12/28/16 08:03 Dose: 5,000 units Hydrochlorothiazide (Hydrochlorothiazide) Confirm Administered Dose 12.5 mg .ROUTE .STK-MED ONE Stop: 12/24/16 13:22 Last Admin: 12/24/16 13:29 Dose: Not Given Hydrochlorothiazide (Hydrochlorothiazide) Confirm Administered Dose 12.5 mg .ROUTE .STK-MED ONE Stop: 12/25/16 09:06 Last Admin: 12/25/16 09:18 Dose: Not Given Sodium Chloride (Normal Saline) 500 mls @ 999 mls/hr IV .BOLUS ONE Stop: 12/21/16 05:28 Last Admin: 12/21/16 05:28 Dose: 999 mls/hr Sodium Chloride (Normal Saline) 1,000 mls @ 999 mls/hr IV .BOLUS ONE Stop: 12/21/16 06:59 Last Admin: 12/21/16 06:00 Dose: 999 mls/hr Sodium Chloride (Normal Saline) 1,000 mls @ 999 mls/hr IV ASDIRECTED [facility] Last Admin: 12/21/16 10:25 Dose: 150 mls/hr Sodium Chloride (Normal Saline) 500 mls @ 1,000 mls/hr IV .BOLUS ONE Stop: 12/21/16 11:24 Last Admin: 12/21/16 11:11 Dose: Not Given Sodium Chloride (Normal Saline) 1,000 mls @ 500 mls/hr IV ASDIRECTED [facility] Last Admin: 12/21/16 13:50 Dose: 500 mls/hr Ciprofloxacin/Dextrose 400 mg/ (Premix) 200 mls @ 200 mls/hr IV Q24H [facility] Last Admin: 12/21/16 19:39 Dose: 200 mls/hr Metronidazole 500 mg/ Premix 100 mls @ 100 mls/hr IV Q8H [facility] Last Admin: 12/27/16 08:34 Dose: 100 mls/hr Sodium Chloride (Normal Saline) 1,000 mls @ 125 mls/hr IV ASDIRECTED [facility] Last Admin: 12/22/16 13:58 Dose: 125 mls/hr Sodium Chloride (Normal Saline) 1,000 mls @ 125 mls/hr IV ASDIRECTED [facility] Last Admin: 12/23/16 01:08 Dose: 125 mls/hr Levofloxacin/Dextrose 750 mg/ (Premix) 150 mls @ 100 mls/hr IV Q48H [facility] Last Admin: 12/26/16 17:29 Dose: 100 mls/hr Sodium Chloride (Normal Saline) 250 mls @ 100 mls/hr IV ASDIRECTED [facility] Last Admin: 12/27/16 08:33 Dose: 100 mls/hr Insulin Aspart (Novolog) 0 unit SUBCUT TIDMEALS [facility] Last Admin: 12/24/16 17:48 Dose: 6 unit Insulin Detemir (Levemir) 6 unit SUBCUT BEDTIME [facility] Last Admin: 12/24/16 20:39 Dose: 6 units Insulin Detemir (Levemir) 10 unit SUBCUT BEDTIME [facility] Last Admin: 12/25/16 20:23 Dose: 10 units Insulin Detemir (Levemir) 15 unit SUBCUT BEDTIME [facility] Last Admin: 12/26/16 20:54 Dose: 15 units Iopamidol (Isovue-370 (76%)) 75 ml IV ONETIME ONE Stop: 12/21/16 13:44 Last Admin: 12/21/16 13:45 Dose: 75 ml Iopamidol (Isovue-370 (76%)) 100 ml IV . DIRECTED ONE Stop: 12/26/16 14:26 Last Admin: 12/26/16 14:45 Dose: 100 ml Lisinopril (Prinivil) Confirm Administered Dose 20 mg .ROUTE .STK-MED ONE Stop: 12/24/16 13:22 Last Admin: 12/24/16 13:29 Dose: Not Given Lisinopril (Prinivil) Confirm Administered Dose 20 mg .ROUTE .STK-MED ONE Stop: 12/25/16 09:05 Last Admin: 12/25/16 09:18 Dose: Not Given Morphine Sulfate (Morphine) 2 mg IVPUSH Q2H PRN PRN Reason: Pain (severe 7-10) Ondansetron HCl (Zofran) 4 mg IVPUSH ONETIME ONE Stop: 12/21/16 08:42 Last Admin: 12/21/16 08:46 Dose: 4 mg Ondansetron HCl (Zofran Odt) 4 mg PO Q4H PRN PRN Reason: nausea, able to take PO Oxycodone HCl (Oxycodone) 5 mg PO Q4H PRN PRN Reason: Pain (moderate 4-6) Sodium Chloride (Saline Flush) 10 ml FLUSH ASDIRECTED PRN PRN Reason: Keep Vein Open Zolpidem Tartrate (Ambien) 5 mg PO BEDTIME [facility] Last Admin: 12/27/16 20:32 Dose: 5 mg - Exam Physical Findings Comments:: Quality Assessment: Urine Catheter out and voiding without difficulty. General: Alert, Oriented, Cooperative, No Acute Distress HEENT: Mucous Membr. Moist/[place] Neck: Supple Lungs: Normal Respiratory Effort, Rales (fine at bilateral bases.). No: Rhonchi Cardiovascular: Regular Rate, Regular Rhythm GI/Abdominal Exam: Normal Bowel Sounds, Soft, Non-Tender, No Distention, No Mass. No: Guarding, Rigid Back Exam: No: Paraspinal Tenderness, Vertebral Tenderness Extremities: Pedal Edema (trace, wearing teds. ) Skin: Warm Neurological: No New Focal Deficit Psy/Mental Status: Normal Affect, Normal Mood *Q Meaningful Use (DIS) - VTE *Q VTE Criteria *Q: - Stroke *Q Stroke Criteria *Q: - AMI *Q AMI Criteria *Q:
[2016-12-28 14:15] VITALS: BP 127/52
[2016-12-28] MEDS ORDERED: Levofloxacin 500 MG Tab PO SCH (18:00)
[2016-12-28] MEDS ORDERED: Levofloxacin 250 MG Tab PO SCH (18:00)
== END 2016-12-28 15:35 | disposition home or self-care (01) | DRG 391 ==
LOC: FB.ED 04:37 → FB.MS 16:18
PROVIDERS: ADMIT Family Medicine; ATTEND Family Medicine
DX: A09 Infectious gastroenteritis and colitis, unspecified (principal); J18.9 Pneumonia, unspecified organism; K92.2 Gastrointestinal hemorrhage, unspecified; I12.9 Hypertensive chronic kidney disease with stage 1 through stage 4 chronic kidney disease, or unspecified chronic kidney disease; G35 Multiple sclerosis; Z66 Do not resuscitate; E11.22 Type 2 diabetes mellitus with diabetic chronic kidney disease; Z79.4 Long term (current) use of insulin; Z87.891 Personal history of nicotine dependence; R19.7 Diarrhea, unspecified; R10.9 Unspecified abdominal pain; R11.0 Nausea; N18.3 Chronic kidney disease, stage 3 (moderate); R79.1 Abnormal coagulation profile; E66.01 Morbid (severe) obesity due to excess calories; Z68.36 Body mass index [BMI] 36.0-36.9, adult; E78.5 Hyperlipidemia, unspecified; I25.2 Old myocardial infarction; H91.90 Unspecified hearing loss, unspecified ear; Z79.82 Long term (current) use of aspirin; R09.02 Hypoxemia; Z79.2 Long term (current) use of antibiotics
CPT/HCPCS: 36410; 36415; 71010; 71275; 74177; 80053; 82565 ×2; 83605; 85025; 85379; 87040 ×2; 96361; 96374; 99284; J2405; J7040 ×4; J7050; Q9967; 51702; 71020; 81001; 82272; 82962; 83615; 83880; 85027; 86140; 87324; 94150; 97161-GP; 99285; A9270-GY; J0744; J1644; J1940; J1956

== ENCOUNTER 2017-03-08 09:09 | Observation (INO) | payer MEDICARE ==
--- NOTE | 2017-03-08 12:17 | EDM.PDOC ---
ED HPI GENERAL MEDICAL PROBLEM - General Chief Complaint: Lower Extremity Injury/Pain Stated Complaint: WEAKNESS LEGS Time Seen by Provider: 03/08/17 09:22 Source of Information: Reports: Patient, EMS History Limitations: Reports: Physical Impairment - History of Present Illness INITIAL COMMENTS - FREE TEXT/NARRATIVE: 86 y.o.w f with H/O MS, sedentary live style, able to walk with a walker till yesterday, however not today because her legs give out. No N/V/D or dizziness. No other acute medical issues. BP 145/56 puls 80 RR 20 Temp 36.9 Onset Date: 03/07/17 Onset Time: 07:00 Duration: Day(s):, Getting Worse Location: Reports: Lower Extremity, Left, Lower Extremity, Right Quality: Reports: Dull (left buttoc ulcer) Severity: Moderate Improves with: Reports: Rest Worsens with: Reports: Movement Context: Reports: Other (Multiple sclerosis) Associated Symptoms: Reports: Weakness - Related Data Allergies Allergy/AdvReac Type Severity Reaction Status Date / Time No Known Allergies Allergy Verified 03/08/17 11:14 Home Meds: Home Meds Amitriptyline [Elavil] 10 mg PO BEDTIME PRN 12/21/16 [History] Insulin Lispro Prot/Lispro [HumaLOG Mix 75-25] 40 units SUBCUT BIDMEALS [History] Lisinopril/Hydrochlorothiazide [Lisinopril-Hctz 20-12.5 mg Tab] 2 tab PO DAILY 12/21/16 [History] Multivitamin [One Daily] 1 tab PO DAILY 12/21/16 [History] amLODIPine [Norvasc] 5 mg PO DAILY 12/21/16 [History] Acetaminophen [Tylenol] 650 mg PO Q4H PRN tablet 12/28/16 [Rx] Aspirin [Adult Low Dose Aspirin EC] 81 mg PO DAILY #90 tablet. 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: Neurological History: Reports: MS Endocrine/Metabolic History: Reports: Diabetes, Type II, Obesity/BMI 30+ - Past Surgical History HEENT Surgical History: Reports: Cataract Surgery Other HEENT Surgeries/Procedures: B/L cataract surgery in 2014 Social & Family History - Family History Family Medical History: Noncontributory - Tobacco Use Smoking Status *Q: Former Smoker Years of Tobacco use: 30 Used Tobacco, but Quit: Yes Month Tobacco Last Used: "college" Second Hand Smoke Exposure: No - Caffeine Use Caffeine Use: Reports: Coffee - Alcohol Use Days Per Week of Alcohol Use: 0 - Recreational Drug Use Recreational Drug Use: No Review of Systems - Review of Systems Review Of Systems: See Below Constitutional: Reports: Weakness Eyes: Reports: No Symptoms Ears: Reports: No Symptoms Nose: Reports: No Symptoms Mouth/Throat: Reports: No Symptoms Respiratory: Reports: No Symptoms Cardiovascular: Reports: No Symptoms GI/Abdominal: Reports: No Symptoms Genitourinary: Reports: Dysuria Musculoskeletal: Reports: No Symptoms Skin: Reports: Wound (decubiti ulder left buttoc) Neurological: Reports: Difficulty Walking, Weakness, Other (H/O MS) Psychiatric: Reports: No Symptoms ED EXAM, GENERAL - Physical Exam Exam: See Below Exam Limited By: Physical Impairment General Appearance: Alert, WD/WN, Obese Eye Exam: Bilateral Eye: Normal Inspection Ears: Normal External Exam Ear Exam: Bilateral Ear: Auricle Normal Nose: Normal Inspection, Normal Mucosa Throat/Mouth: Normal Inspection, Normal Lips Head: Atraumatic, Normocephalic Neck: Normal Inspection Respiratory/Chest: No Respiratory Distress, Lungs Clear, Normal Breath Sounds Cardiovascular: Normal Peripheral Pulses, Regular Rate, Rhythm, No Edema, No Gallop GI/Abdominal: Normal Bowel Sounds, Soft, Non-Tender, No Organomegaly (Female) Exam: Deferred Rectal (Female) Exam: Deferred Back Exam: Normal Inspection Extremities: Normal Inspection, Normal Range of Motion Neurological: CN II-XII Intact, Other (Muscle strenght 4/5) Psychiatric: Normal Affect, Normal Mood Skin Exam: Warm, Dry, Other (decubiti ulcer left buttoc) Lymphatic: No Adenopathy Course - Vital Signs Text/Narrative:: 86 y.o.w f with H/O MS, sedentary live style, able to walk with a walker till yesterday, however not today because her legs give out. No N/V/D or dizziness. No other acute medical issues. BP 145/56 puls 80 RR 20 Temp 36.9 PE: Morbid obese 86 y.o.w.f unable to ambulate due to leg weakness Labs: BUN 41 Cr 1.9 GFR 23 (GFR on 12/31/2016 was 22) Leucoesterase pos, WBC Nl Impression: MS, Gen weakness, chronic renal insufficiency, dehydration, unable to ambulate, decubiti ulcers left buttock Tx: cipro one dose 12.10 pm Consultation: Dr. Chu: Accepted admission to [facility]BS Plan: Admit Last Recorded V/S: Last Vital Signs Temp 36.8 C 03/08/17 09:22 Pulse 90 03/08/17 10:27 Resp 18 03/08/17 10:27 BP 109/63 03/08/17 10:27 Pulse Ox 93 L 03/08/17 10:27 - Orders/Labs/Meds Orders: Active Orders 24 hr Category Date Time Status Patient Status [ADT] Routine ADT 03/08/17 12:17 Active Oxygen Therapy [RC] PRN Care 03/08/17 12:17 Active Up With Assistance [RC] ASDIRECTED Care 03/08/17 12:17 Active VTE/DVT Education [RC] Per Unit Routine Care 03/08/17 12:17 Active Vital Signs [RC] Q4H Care 03/08/17 12:17 Active Regular Diet [DIET] Diet 03/08/17 Breakfast Ordered Lactated Ringers [Ringers, Lactated] 1,000 ml Med 03/08/17 12:30 Active IV ASDIRECTED Resuscitation Status Routine Resus Stat 03/08/17 12:17 Ordered Medication Orders Lactated Ringer's (Ringers, Lactated) 1,000 mls @ 125 mls/hr IV ASDIRECTED JULIETTE Labs: Laboratory Tests 03/08/17 03/08/17 03/08/17 Range/Units 10:05 10:05 10:05 WBC 7.9 (4.5-12.0) X10-3/uL RBC 4.24 (3.23-5.20) x10(6)uL Hgb 12.5 (11.5-15.5) g/dL Hct 37.6 (30.0-51.3) % MCV 88.7 (80-96) fL MCH 29.6 (27.7-33.6) pg MCHC 33.3 (32.2-35.4) g/dL RDW 12.5 (11.5-15.5) % Plt Count 276 (125-369) X10(3)uL MPV 7.1 L (7.4-10.4) fL Neut % (Auto) 68.5 (46-82) % Lymph % (Auto) 20.1 (13-37) % Luce % (Auto) 9.2 (4-12) % Eos % (Auto) 1 (1.0-5.0) % Baso % (Auto) 1 (0-2) % Neut # (Auto) 5.4 (1.6-8.3) # Lymph # (Auto) 1.6 (0.6-5.0) # Luce # (Auto) 0.7 (0.0-1.3) # Eos # (Auto) 0.1 (0.0-0.8) # Baso # (Auto) 0.1 (0.0-0.2) # PT 10.5 (8.7-11.1) INR 1.04 (0.89-1.13) Sodium 139 (135-145) mmol/L Potassium 4.6 (3.5-5.3) mmol/L Chloride 102 (100-110) mmol/L Carbon Dioxide 26 (21-32) mmol/L BUN 40 H (7-18) mg/dL Creatinine 1.9 H (0.55-1.02) mg/dL Est Cr Clr Drug Dosing TNP Estimated GFR (MDRD) 25 L (>60) BUN/Creatinine Ratio 21.1 H (9-20) Glucose 231 H (80-116) mg/dL Calcium 9.4 (8.6-10.2) mg/dL Urine Color (YELLOW) Urine Appearance (CLEAR) Urine pH (5.0-6.5) Ur Specific Hyden (1.010-1.025) Urine Protein (NEGATIVE) mg/dL Urine Glucose (UA) (NEGATIVE) mg/dL Urine Ketones (NEGATIVE) mg/dL Urine Occult Blood (NEGATIVE) Urine Nitrite (NEGATIVE) Urine Bilirubin (NEGATIVE) Urine Urobilinogen (NEGATIVE) mg/dL Ur Leukocyte Esterase (NEGATIVE) Urine WBC (0) Ur Squamous Epith Cells (NS,R,O) Urine Bacteria (NS) 03/08/17 Range/Units 11:38 WBC (4.5-12.0) X10-3/uL RBC (3.23-5.20) x10(6)uL Hgb (11.5-15.5) g/dL Hct (30.0-51.3) % MCV (80-96) fL MCH (27.7-33.6) pg MCHC (32.2-35.4) g/dL RDW (11.5-15.5) % Plt Count (125-369) X10(3)uL MPV (7.4-10.4) fL Neut % (Auto) (46-82) % Lymph % (Auto) (13-37) % Luce % (Auto) (4-12) % Eos % (Auto) (1.0-5.0) % Baso % (Auto) (0-2) % Neut # (Auto) (1.6-8.3) # Lymph # (Auto) (0.6-5.0) # Luce # (Auto) (0.0-1.3) # Eos # (Auto) (0.0-0.8) # Baso # (Auto) (0.0-0.2) # PT (8.7-11.1) INR (0.89-1.13) Sodium (135-145) mmol/L Potassium (3.5-5.3) mmol/L Chloride (100-110) mmol/L Carbon Dioxide (21-32) mmol/L BUN (7-18) mg/dL Creatinine (0.55-1.02) mg/dL Est Cr Clr Drug Dosing Estimated GFR (MDRD) (>60) BUN/Creatinine Ratio (9-20) Glucose (80-116) mg/dL Calcium (8.6-10.2) mg/dL Urine Color Yellow (YELLOW) Urine Appearance Slightly cloudy (CLEAR) Urine pH 5.0 (5.0-6.5) Ur Specific Hyden 1.020 (1.010-1.025) Urine Protein Negative (NEGATIVE) mg/dL Urine Glucose (UA) Normal (NEGATIVE) mg/dL Urine Ketones Negative (NEGATIVE) mg/dL Urine Occult Blood Negative (NEGATIVE) Urine Nitrite Negative (NEGATIVE) Urine Bilirubin Negative (NEGATIVE) Urine Urobilinogen Normal (NEGATIVE) mg/dL Ur Leukocyte Esterase Small H (NEGATIVE) Urine WBC 0-5 (0) Ur Squamous Epith Cells Moderate H (NS,R,O) Urine Bacteria Moderate H (NS) Meds: Medications Generic Name Dose Route Start Last Admin Trade Name Freq PRN Reason Stop Dose Admin Lactated Ringer's 1,000 mls @ 125 mls/hr 03/08/17 12:30 Ringers, Lactated IV ASDIRECTED JULIETTE Discontinued Medications Generic Name Dose Route Start Last Admin Trade Name Freq PRN Reason Stop Dose Admin Ciprofloxacin 500 mg 03/08/17 12:27 03/08/17 12:46 Ciprofloxacin Hcl PO 03/08/17 12:28 500 mg ONETIME ONE Administration Departure - Departure Time of Disposition: 12:16 Disposition: Refer to Observation Condition: Fair Clinical Impression: Unable to ambulate, Multiple sclerosis - Discharge Information - My Orders Last 24 Hours: My Active Orders 03/08/17 12:17 Patient Status [ADT] Routine Oxygen Therapy [RC] PRN Up With Assistance [RC] ASDIRECTED VTE/DVT Education [RC] Per Unit Routine Vital Signs [RC] Q4H Resuscitation Status Routine 03/08/17 12:30 Lactated Ringers [Ringers, Lactated] 1,000 ml IV ASDIRECTED 03/08/17 Breakfast Regular Diet [DIET] - Assessment/Plan Last 24 Hours: My Active Orders 03/08/17 12:17 Patient Status [ADT] Routine Oxygen Therapy [RC] PRN Up With Assistance [RC] ASDIRECTED VTE/DVT Education [RC] Per Unit Routine Vital Signs [RC] Q4H Resuscitation Status Routine 03/08/17 12:30 Lactated Ringers [Ringers, Lactated] 1,000 ml IV ASDIRECTED 03/08/17 Breakfast Regular Diet [DIET]
[2017-03-08] MEDS ORDERED: Ciprofloxacin 500 MG Tab PO ONE (12:27)
[2017-03-08] MEDS ORDERED: Lactated Ringers 1,000 ML IV SCH (12:30)
[2017-03-08] MEDS ORDERED: Acetaminophen 325 MG Tab PO PRN (16:15)
[2017-03-08] MEDS ORDERED: Amitriptyline 10 MG Tab PO PRN (16:15)
[2017-03-08] MEDS ORDERED: metroNIDAZOLE 500 MG Tab PO SCH (16:15)
--- NOTE | 2017-03-08 17:24 | PCM.HP ---
H&P History of Present Illness - General Date of Service: 03/08/17 Source of Information: Patient, Family, Old Records History Limitations: Reports: No Limitations - History of Present Illness Initial Comments - Free Text/Narative: 86 yo admitted for a fall. Kathy states that she was walking in her apartment yesterday when her legs gave out. She was able to scoot up her bed,and went to sleep then this morning called for help. She believes her legs gave out due to MS. She has multiple sclerosis diagnosed years ago. Of note, she was recently hospitalized in December for pneumonia and gastroenteritis. She does have chronic kidney disease,with a creatinine baseline of 1.4 to about 1.9. She denies any chest pain or shortness of breath neither does she have any urinary symptoms, fever chills or headache denies dizziness nausea or vomiting. She has type 2 diabetes and HTN that are well-controlled. Kathy is alone in an apartment,[place] denies when asked Pain Score (Numeric/FACES): 0 - Related Data Allergies/Adverse Reactions: Allergies Allergy/AdvReac Type Severity Reaction Status Date / Time No Known Allergies Allergy Verified 03/08/17 11:14 Home Medications: Home Meds Amitriptyline [Elavil] 10 - 20 mg PO BEDTIME PRN 12/21/16 [History] Insulin Lispro Prot/Lispro [HumaLOG Mix 75-25] 40 units SUBCUT BIDMEALS [History] Lisinopril/Hydrochlorothiazide [Lisinopril-Hctz 20-12.5 mg Tab] 2 tab PO DAILY 12/21/16 [History] Multivitamin [One Daily] 1 tab PO DAILY 12/21/16 [History] amLODIPine [Norvasc] 5 mg PO DAILY 12/21/16 [History] Acetaminophen [Tylenol] 650 mg PO Q4H PRN tablet 12/28/16 [Rx] Aspirin [Adult Low Dose Aspirin EC] 81 mg PO DAILY #90 tablet. 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 , , Other (See Below) Other OB/BYN History: several miscarriages Musculoskeletal History: Reports: Back Pain, Chronic Neurological History: Reports: MS Endocrine/Metabolic History: Reports: Diabetes, Type II, Obesity/BMI 30+ - Past Surgical History HEENT Surgical History: Reports: Cataract Surgery Other HEENT Surgeries/Procedures: B/L cataract surgery in 2014 Musculoskeletal Surgical History: Reports: Knee Replacement, Other (See Below) Other Musculoskeletal Surgeries/Procedures:: right Social & Family History - Family History Family Medical History: Noncontributory - Tobacco Use Smoking Status *Q: Never Smoker Years of Tobacco use: 30 Used Tobacco, but Quit: Yes Month Tobacco Last Used: "college" Second Hand Smoke Exposure: No - Caffeine Use Caffeine Use: Reports: Coffee, Soda Other Caffeine Use: 2 cups of coffee; Soda once a week - Alcohol Use Days Per Week of Alcohol Use: 0 - Recreational Drug Use Recreational Drug Use: No H&P Review of Systems - Review of Systems: Review Of Systems: ROS reveals no pertinent complaints other than HPI. Exam - Exam Exam: See Below - Vital Signs Vital Signs: Last Vital Signs Temp 97.6 F 03/08/17 16:20 Pulse 86 03/08/17 16:20 Resp 18 03/08/17 16:20 BP 143/58 H 03/08/17 16:20 Pulse Ox 91 L 03/08/17 16:20 Weight: 95.889 kg - Exam General: Alert, Oriented, 4 HEENT: PERRLA, Hearing Intact, Mucosa Moist & Cubero, Nares Patent, Normal Nasal Septum, Posterior Pharynx Clear, Conjunctiva Clear, EOMI, EACs Clear, TMs Clear Neck: Supple, Trachea Midline, 2 Lungs: Clear to Auscultation, Normal Respiratory Effort Cardiovascular: Regular Rate, Regular Rhythm GI/Abdominal Exam: Normal Bowel Sounds, Soft, Non-Tender, No Organomegaly, No Distention, No Abnormal Bruit, No Mass, Pelvis Stable (Female) Exam: Normal External Exam, Normal Speculum Exam, Normal Bimanual Exam Rectal (Female) Exam: Normal Exam, Normal Rectal Tone Back Exam: Normal Inspection, Full Range of Motion, NT Extremities: Normal Inspection, Normal Range of Motion, Non-Tender, No Pedal Edema, Normal Capillary Refill Skin: Warm, Dry, Intact Neurological: Cranial Nerves Intact, Reflexes Equal Bilateral Neuro Extensive - Mental Status: Alert, Oriented x3, Normal Mood/Affect, Normal Cognition Neuro Extensive - Motor, Sensory, Reflexes: CN II-XII Intact, Normal Gait, Normal Reflexes Psychiatric: Alert, Normal Affect, Normal Mood - Patient Data Result Diagrams: 03/08/17 10:05 03/08/17 10:05 *Q Meaningful Use (ADM) - VTE *Q VTE Criteria *Q: - Stroke *Q Stroke Criteria *Q: - AMI *Q AMI Criteria *Q: - Problem List (1) Fall SNOMED Code(s): 7595989 ICD Code: W19.XXXA - UNSPECIFIED FALL, INITIAL ENCOUNTER Status: Acute Current Visit: Yes Qualifiers: Encounter type: initial encounter Qualified Code(s): W19.XXXA - Unspecified fall, initial encounter (2) CKD (chronic kidney disease) SNOMED Code(s): 110351594 ICD Code: N18.9 - CHRONIC KIDNEY DISEASE, UNSPECIFIED Status: Chronic Current Visit: Yes Qualifiers: Chronic kidney disease stage: stage 3 (moderate) Qualified Code(s): N18.3 - Chronic kidney disease, stage 3 (moderate) (3) Asymptomatic bacteriuria SNOMED Code(s): 123132205 ICD Code: R82.71 - BACTERIURIA Status: Acute Current Visit: Yes (4) Multiple sclerosis SNOMED Code(s): 03264143 ICD Code: G35 - MULTIPLE SCLEROSIS Status: Chronic Current Visit: Yes (5) CKD stage 3 due to type 2 diabetes mellitus SNOMED Code(s): 829077260405 ICD Code: E11.22 - TYPE 2 DIABETES MELLITUS W DIABETIC CHRONIC KIDNEY DISEASE ; N18.3 - CHRONIC KIDNEY DISEASE, STAGE 3 (MODERATE) Status: Chronic Current Visit: No (6) HTN (hypertension) SNOMED Code(s): 45547943 ICD Code: I10 - ESSENTIAL (PRIMARY) HYPERTENSION Status: Chronic Current Visit: No Problem Details: Continue current meds. Qualifiers: Hypertension type: unspecified Qualified Code(s): I10 - Essential (primary ) hypertension (7) Hyperlipidemia SNOMED Code(s): 52390691 ICD Code: E78.5 - HYPERLIPIDEMIA, UNSPECIFIED Status: Chronic Current Visit: No Problem Details: Untreated because of age. Qualifiers: Hyperlipidemia type: unspecified Qualified Code(s): E78.5 - Hyperlipidemia , unspecified Problem List Initiated/Reviewed/Updated: Yes Orders Last 24hrs: Active Orders 24 hr Category Date Time Status Accu Check [Blood Glucose Check, Bedside] [RC] 06,11, Care 03/08/17 16:17 Active 1730 Consult to Occupational Therapy [OT Evaluation and Cons 03/08/17 13:33 Active Treatment] [CONS] Routine PT Evaluation and Treatment [CONS] Routine Cons 03/08/17 17:20 Ordered BASIC METABOLIC PANEL,BMP [CHEM] AM Lab 03/09/17 05:11 Ordered Acetaminophen [Tylenol] Med 03/08/17 16:15 Active 650 mg PO Q4H PRN Amitriptyline [Elavil] Med 03/08/17 16:15 Active 10 mg PO BEDTIME PRN Aspirin [Halfprin] Med 03/09/17 09:00 Active 81 mg PO DAILY Docusate Sodium [Colace] Med 03/09/17 09:00 Active 100 mg PO DAILY Insulin Lispro Prot/Lispro [HumaLOG Mix 75-25] Med 03/08/17 18:00 Active 0 units SUBCUT BIDMEALS Multivitamins [Tab-A-Jodie] Med 03/09/17 09:00 Active 1 tab PO DAILY amLODIPine [Norvasc] Med 03/09/17 09:00 Active 5 mg PO DAILY Resuscitation Status Routine Resus Stat 03/08/17 12:17 Ordered Medication Orders Acetaminophen (Tylenol) 650 mg PO Q4H PRN PRN Reason: FEVER/PAIN Amitriptyline HCl (Elavil) 10 mg PO BEDTIME PRN PRN Reason: nerve pain Amlodipine Besylate (Norvasc) 5 mg PO DAILY JULIETTE Aspirin (Halfprin) 81 mg PO DAILY JULIETTE Docusate Sodium (Colace) 100 mg PO DAILY [facility] Multivitamins/Minerals/Vitamin C (Tab-A-Jodie) 1 tab PO DAILY [facility] Humalog Mix 75/25 0 units SUBCUT BIDMEALS [facility] Assessment/Plan Comment:: Heplock IVF. Consult PT. Stop HCTZ and observe BP
[2017-03-08] MEDS: HUMALOG MIX 75/25 SUBCUT SCH (18:43)
[2017-03-09] MEDS ORDERED: Sodium Chloride 0.9% 10 ML Syringe FLUSH PRN (00:52)
[2017-03-09] MEDS: HUMALOG MIX 75/25 SUBCUT SCH (08:00)
[2017-03-09] MEDS ORDERED: Hydrochlorothiazide/Lisinopril 12.5-20 MG Tab PO SCH (09:00)
[2017-03-09] MEDS ORDERED: Multivitamin Tab *PTOM PO SCH (09:00)
[2017-03-09] MEDS ORDERED: Aspirin 81 MG Tab.EC PO SCH (09:00)
[2017-03-09] MEDS ORDERED: Docusate Sodium 100 MG Cap PO SCH (09:00)
--- NOTE | 2017-03-09 09:20 | PCM.PN ---
- General Info Date of Service: 03/09/17 Subjective Update: Kathy slept well last night. She says she has more strength in the legs. She' s ready to go back home today. Functional Status: Reports: Pain Controlled, Ambulating - Review of Systems General: Reports: No Symptoms HEENT: Reports: No Symptoms Pulmonary: Reports: No Symptoms Cardiovascular: Reports: No Symptoms - Patient Data Vitals - Most Recent: Last Vital Signs Temp 98.5 F 03/09/17 08:08 Pulse 71 03/09/17 08:08 Resp 16 03/09/17 08:08 BP 145/74 H 03/09/17 08:08 Pulse Ox 95 03/09/17 08:08 Weight - Most Recent: 95.889 kg I&O - Last 24 Hours: Intake & Output 03/08/17 03/09/17 03/09/17 22:59 06:59 14:59 Intake Total 641 50 Output Total 200 Balance 641 -150 Lab Results Last 24 Hours: Laboratory Results - last 24 hr 03/08/17 03/09/17 Range/Units 17:16 06:35 Sodium 142 (135-145) mmol/L Potassium 4.1 (3.5-5.3) mmol/L Chloride 107 D (100-110) mmol/L Carbon Dioxide 26 (21-32) mmol/L BUN 37 H (7-18) mg/dL Creatinine 1.6 H (0.55-1.02) mg/dL Est Cr Clr Drug Dosing 18.69 mL/min Estimated GFR (MDRD) 30 L (>60) BUN/Creatinine Ratio 23.1 H (9-20) Glucose 115 D (80-116) mg/dL POC Glucose 162 H D (80-116) mg/dL Calcium 9.1 (8.6-10.2) mg/dL Med Orders - Current: Current Medications Acetaminophen (Tylenol) 650 mg PO Q4H PRN PRN Reason: FEVER/PAIN Amitriptyline HCl (Elavil) 10 mg PO BEDTIME PRN PRN Reason: nerve pain Amlodipine Besylate (Norvasc) 5 mg PO DAILY [facility] Aspirin (Halfprin) 81 mg PO DAILY [facility] Docusate Sodium (Colace) 100 mg PO DAILY [facility] Multivitamins/Minerals/Vitamin C (Tab-A-Jodie) 1 tab PO DAILY [facility] Humalog Mix 75/25 0 units SUBCUT BIDMEALS [facility] Last Admin: 03/09/17 08:00 Dose: 40 units Sodium Chloride (Saline Flush) 10 ml FLUSH ASDIRECTED PRN PRN Reason: Keep Vein Open Discontinued Medications Ciprofloxacin (Ciprofloxacin Hcl) 500 mg PO ONETIME ONE Stop: 03/08/17 12:28 Last Admin: 03/08/17 12:46 Dose: 500 mg Lisinopril/HCTZ (Lisinopril/Hctz 20-12.5 Mg) 2 tab PO DAILY [facility] Lactated Ringer's (Ringers, Lactated) 1,000 mls @ 125 mls/hr IV ASDIRECTED [facility] Metronidazole (Flagyl) 500 mg PO Q8H [facility] Last Admin: 03/08/17 17:19 Dose: Not Given - Exam Quality Assessment: No: Supplemental Oxygen General: Alert, Oriented HEENT: Pupils Equal, Scleral Icterus Lungs: Clear to Auscultation Cardiovascular: Regular Rate Extremities: Normal Inspection - Problem List & Annotations (1) Fall SNOMED Code(s): 0406955 Code(s): W19.XXXA - UNSPECIFIED FALL, INITIAL ENCOUNTER Status: Acute Current Visit: Yes Qualifiers: Encounter type: initial encounter Qualified Code(s): W19.XXXA - Unspecified fall, initial encounter (2) CKD (chronic kidney disease) SNOMED Code(s): 554660817 Code(s): N18.9 - CHRONIC KIDNEY DISEASE, UNSPECIFIED Status: Chronic Current Visit: Yes Qualifiers: Chronic kidney disease stage: stage 3 (moderate) Qualified Code(s): N18.3 - Chronic kidney disease, stage 3 (moderate) (3) Asymptomatic bacteriuria SNOMED Code(s): 872713186 Code(s): R82.71 - BACTERIURIA Status: Acute Current Visit: Yes (4) Multiple sclerosis SNOMED Code(s): 99354914 Code(s): G35 - MULTIPLE SCLEROSIS Status: Chronic Current Visit: Yes (5) CKD stage 3 due to type 2 diabetes mellitus SNOMED Code(s): 662376767077 Code(s): E11.22 - TYPE 2 DIABETES MELLITUS W DIABETIC CHRONIC KIDNEY DISEASE ; N18.3 - CHRONIC KIDNEY DISEASE, STAGE 3 (MODERATE) Status: Chronic Current Visit: No (6) HTN (hypertension) SNOMED Code(s): 64994287 Code(s): I10 - ESSENTIAL (PRIMARY) HYPERTENSION Status: Chronic Current Visit: No Qualifiers: Hypertension type: unspecified Qualified Code(s): I10 - Essential (primary ) hypertension Annotation/Comment:: Continue current meds. (7) Hyperlipidemia SNOMED Code(s): 51955928 Code(s): E78.5 - HYPERLIPIDEMIA, UNSPECIFIED Status: Chronic Current Visit: No Qualifiers: Hyperlipidemia type: unspecified Qualified Code(s): E78.5 - Hyperlipidemia , unspecified Annotation/Comment:: Untreated because of age. - Problem List Review Problem List Initiated/Reviewed/Updated: Yes - My Orders Last 24 Hours: My Active Orders 03/08/17 17:20 PT Evaluation and Treatment [CONS] Routine - Plan Plan:: patient is ready to go back home. Her creatinine is down to 1.6 which is at baseline. I recommended that she gets a home health agency to review her medications and also provide home physical therapy if feasible. I Have discontinued lisinopril HCTZ for blood pressure and instead will increase Norvasc to 10 mg a day.Should see regular physician within a week of discharge.
[2017-03-09] MEDS ORDERED: Bacitracin Oint 15 GM Tube TOP SCH (09:30)
[2017-03-09] MEDS ORDERED: Bacitracin Oint 28.35 GM Tube TOP SCH ×2 (09:47→10:00)
[2017-03-09 13:03] VITALS: BP 146/76
== END 2017-03-09 14:00 | disposition home health service (06) ==
LOC: FB.ED 09:09 → FB.MS 12:24
PROVIDERS: ADMIT Family Medicine; ATTEND Family Medicine
DX: G35 Multiple sclerosis (principal); E11.22 Type 2 diabetes mellitus with diabetic chronic kidney disease; I12.9 Hypertensive chronic kidney disease with stage 1 through stage 4 chronic kidney disease, or unspecified chronic kidney disease; E78.00 Pure hypercholesterolemia, unspecified; N18.3 Chronic kidney disease, stage 3 (moderate); R82.71 Bacteriuria; E78.5 Hyperlipidemia, unspecified; E66.01 Morbid (severe) obesity due to excess calories; W19.XXXA Unspecified fall, initial encounter; Z68.30 Body mass index [BMI] 30.0-30.9, adult; Z79.899 Other long term (current) drug therapy; Z97.4 Presence of external hearing-aid; Z79.82 Long term (current) use of aspirin
CPT/HCPCS: 36415; 80048; 81001; 82947; 82962; 85025; 85610; 99285; A9270; G0378; 99219; 99225; 99284

== ENCOUNTER 2017-04-20 14:25 | Inpatient (IN) | payer MEDICARE ==
--- NOTE | 2017-04-20 15:43 | EDM.PDOC ---
ED HPI GENERAL MEDICAL PROBLEM - General Chief Complaint: Lower Extremity Injury/Pain Stated Complaint: LEFT KNEE Time Seen by Provider: 04/20/17 15:15 Source of Information: Reports: Patient History Limitations: Reports: No Limitations - History of Present Illness INITIAL COMMENTS - FREE TEXT/NARRATIVE: c/o weakness and falls both are chronic, using a walker, does not drive, takes a taxi to grocery store and weekly hair apt lives alone in apartment at [employer], states "I am quite content", lacks insight into why she is falling has had dx of MS in past, yet no current sxs of same BP 117/54 now, will check orthostatics has pain in both knees, obese, not had knee replacement, had a fall 13y ago and had a pin placed in R ankle, also with linear scar over R knee from 13y ago but pt does not know what surgery was done (or whether it was just a laceration) she did have severe colitis on CT 4m ago with CRP 16.6 (down to 4.4 three days later) and D-dimer >5000 (which apparently was a false positive d/t her colitis , pt denies dx of blood clots in past) does have CKD with last BUN/creat 37/1.6 6w ago has h/o HF with last BNP 893 from 4m ago last CxR 12-28-16 showed resolving bibasilar pneumonia and pleuritis and COPD PSH includes appy and choly PCP Dr Meier, next apt with him 05/31 left knee Pain Score (Numeric/FACES): 5 - Related Data Allergies Allergy/AdvReac Type Severity Reaction Status Date / Time No Known Allergies Allergy Verified 04/20/17 14:58 Home Meds: Home Meds Amitriptyline [Elavil] 10 - 20 mg PO BEDTIME PRN 12/21/16 [History] Insulin Lispro Prot/Lispro [HumaLOG Mix 75-25] 40 units SUBCUT BIDMEALS [History] Multivitamin [One Daily] 1 tab PO DAILY 12/21/16 [History] Acetaminophen [Tylenol] 650 mg PO Q4H PRN tablet 12/28/16 [Rx] Aspirin [Adult Low Dose Aspirin EC] 81 mg PO DAILY #90 tablet. 12/28/16 [Rx] amLODIPine [Norvasc] 10 mg PO DAILY #30 tablet 03/09/17 [Rx] Past Medical History HEENT History: Reports: Cataract, Hard of Hearing Cardiovascular History: Reports: High Cholesterol, Hypertension, SOB on Exertion Respiratory History: Reports: SOB Genitourinary History: Reports: UTI, Recurrent TERRAZZO FINISHER History: Reports: Ectopic , , Other (See Below) Other OB/BYN History: several miscarriages Musculoskeletal History: Reports: Back Pain, Chronic Neurological History: Reports: MS Endocrine/Metabolic History: Reports: Diabetes, Type II, Obesity/BMI 30+ - Past Surgical History HEENT Surgical History: Reports: Cataract Surgery Other HEENT Surgeries/Procedures: B/L cataract surgery in 2014 Musculoskeletal Surgical History: Reports: Knee Replacement, Other (See Below) Other Musculoskeletal Surgeries/Procedures:: right Social & Family History - Family History Family Medical History: Noncontributory - Tobacco Use Smoking Status *Q: Never Smoker Years of Tobacco use: 30 Used Tobacco, but Quit: Yes Month Tobacco Last Used: "college" Second Hand Smoke Exposure: No - Caffeine Use Caffeine Use: Reports: Coffee, Soda, Tea Other Caffeine Use: 2 cups of coffee; Soda once a week - Alcohol Use Days Per Week of Alcohol Use: 0 - Recreational Drug Use Recreational Drug Use: No Review of Systems - Review of Systems Review Of Systems: See Below Constitutional: Reports: Weakness. Denies: Chills, Fever Eyes: Reports: No Symptoms Ears: Reports: No Symptoms Nose: Reports: No Symptoms Mouth/Throat: Reports: No Symptoms Respiratory: Reports: No Symptoms. Denies: Shortness of Breath Cardiovascular: Reports: No Symptoms. Denies: Chest Pain GI/Abdominal: Reports: No Symptoms. Denies: Abdominal Pain, Constipation, Diarrhea, Nausea, Vomiting Genitourinary: Reports: No Symptoms Musculoskeletal: Reports: Other (knee pain b/l) Skin: Reports: No Symptoms Neurological: Reports: No Symptoms Psychiatric: Reports: No Symptoms ED EXAM, GENERAL - Physical Exam Exam: See Below Exam Limited By: No Limitations General Appearance: Alert, WD/WN, No Apparent Distress Ears: Normal External Exam Nose: Normal Inspection, Normal Mucosa, No Blood Throat/Mouth: Normal Inspection, Normal Lips, Normal Teeth, Normal Gums, Normal Oropharynx, Normal Voice, No Airway Compromise Head: Atraumatic, Normocephalic Neck: Normal Inspection, Supple, Non-Tender, Full Range of Motion Respiratory/Chest: No Respiratory Distress, Lungs Clear, Normal Breath Sounds, No Accessory Muscle Use, Chest Non-Tender Cardiovascular: Normal Peripheral Pulses, Regular Rate, Rhythm, No Gallop, No JVD, No Rub, Other (2/6 BILL at [facility], quiet precordium, 1+ edema to knees and trace edema to groin b/l, symmetric, no cords, NT) GI/Abdominal: Normal Bowel Sounds, Soft, Non-Tender, No Organomegaly, No Distention, No Mass, Other (obese) Back Exam: Normal Inspection, Full Range of Motion, NT Extremities: Normal Inspection, Normal Range of Motion, Non-Tender, Normal Capillary Refill Neurological: Alert, Oriented, CN II-XII Intact, Normal Cognition, No Motor/ Sensory Deficits Psychiatric: Normal Affect, Normal Mood Skin Exam: Warm, Dry, Intact, Normal Color, No Rash Lymphatic: No Adenopathy Course - Vital Signs Last Recorded V/S: Last Vital Signs Temp 36.6 C 04/20/17 14:25 Pulse 81 04/20/17 14:25 Resp 16 04/20/17 14:25 BP 117/54 L 04/20/17 14:25 Pulse Ox 96 04/20/17 14:25 - Orders/Labs/Meds Orders: Active Orders 24 hr Category Date Time Status Insert Urinary Catheter [OM.PC] Q24H Care 04/20/17 16:40 Ordered Orthostatic Vital Signs [RC] ASDIRECTED Care 04/20/17 15:37 Active Urinary Catheter Assessment [RC] QSHIFT Care 04/20/17 16:40 Active Chest 2V [CR] Stat Exams 04/20/17 15:34 Taken Knee 3V Lt [CR] Stat Exams 04/20/17 15:35 Taken Knee 3V Rt [CR] Stat Exams 04/20/17 15:35 Taken EKG 12 Lead [EK] Routine Ther 04/20/17 15:34 Ordered Labs: Laboratory Tests 04/20/17 04/20/17 04/20/17 Range/Units 16:05 16:05 16:05 WBC 11.6 (4.5-12.0) X10-3/uL RBC 4.48 (3.23-5.20) x10(6)uL Hgb 13.1 (11.5-15.5) g/dL Hct 39.5 (30.0-51.3) % MCV 88.1 (80-96) fL MCH 29.2 (27.7-33.6) pg MCHC 33.1 (32.2-35.4) g/dL RDW 12.4 (11.5-15.5) % Plt Count 297 (125-369) X10(3)uL MPV 7.1 L (7.4-10.4) fL Neut % (Auto) 73.2 (46-82) % Lymph % (Auto) 16.1 (13-37) % [place] % (Auto) 10.0 (4-12) % Eos % (Auto) 0 L (1.0-5.0) % Baso % (Auto) 0 (0-2) % Neut # (Auto) 8.5 H (1.6-8.3) # Lymph # (Auto) 1.9 (0.6-5.0) # [place] # (Auto) 1.2 (0.0-1.3) # Eos # (Auto) 0.0 (0.0-0.8) # Baso # (Auto) 0.0 (0.0-0.2) # D-Dimer, Quantitative 1850 H (100-400) ng/mL Sodium (135-145) mmol/L Potassium (3.5-5.3) mmol/L Chloride (100-110) mmol/L Carbon Dioxide (21-32) mmol/L BUN (7-18) mg/dL Creatinine (0.55-1.02) mg/dL Est Cr Clr Drug Dosing mL/min Estimated GFR (MDRD) (>60) BUN/Creatinine Ratio (9-20) Glucose (80-116) mg/dL Calcium (8.6-10.2) mg/dL Total Bilirubin (0.1-1.3) mg/dL AST (5-25) IU/L ALT (12-36) U/L Alkaline Phosphatase (56-112) IU/L Troponin I 0.022 (<0.017-0.056) ng/mL C-Reactive Protein 1.4 H (0.5-0.9) mg/dL NT-Pro-B Natriuret Pep 662 H (<=450) pg/mL Total Protein (6.0-8.0) g/dL Albumin (3.2-4.6) g/dL Globulin g/dL Albumin/Globulin Ratio TSH, Ultra Sensitive (0.36-3.74) IU/mL Urine Color (YELLOW) Urine Appearance (CLEAR) Urine pH (5.0-6.5) Ur Specific [place] (1.010-1.025) Urine Protein (NEGATIVE) mg/dL Urine Glucose (UA) (NEGATIVE) mg/dL Urine Ketones (NEGATIVE) mg/dL Urine Occult Blood (NEGATIVE) Urine Nitrite (NEGATIVE) Urine Bilirubin (NEGATIVE) Urine Urobilinogen (NEGATIVE) mg/dL Ur Leukocyte Esterase (NEGATIVE) Urine RBC (0) Urine WBC (0) Ur Squamous Epith Cells (NS,R,O) Amorphous Sediment Urine Bacteria (NS) 04/20/17 04/20/17 04/20/17 Range/Units 16:05 16:05 16:40 WBC (4.5-12.0) X10-3/uL RBC (3.23-5.20) x10(6)uL Hgb (11.5-15.5) g/dL Hct (30.0-51.3) % MCV (80-96) fL MCH (27.7-33.6) pg MCHC (32.2-35.4) g/dL RDW (11.5-15.5) % Plt Count (125-369) X10(3)uL MPV (7.4-10.4) fL Neut % (Auto) (46-82) % Lymph % (Auto) (13-37) % [place] % (Auto) (4-12) % Eos % (Auto) (1.0-5.0) % Baso % (Auto) (0-2) % Neut # (Auto) (1.6-8.3) # Lymph # (Auto) (0.6-5.0) # [place] # (Auto) (0.0-1.3) # Eos # (Auto) (0.0-0.8) # Baso # (Auto) (0.0-0.2) # D-Dimer, Quantitative (100-400) ng/mL Sodium 143 (135-145) mmol/L Potassium 4.7 (3.5-5.3) mmol/L Chloride 106 (100-110) mmol/L Carbon Dioxide 28 (21-32) mmol/L BUN 32 H (7-18) mg/dL Creatinine 1.7 H (0.55-1.02) mg/dL Est Cr Clr Drug Dosing 18.44 mL/min Estimated GFR (MDRD) 28 L (>60) BUN/Creatinine Ratio 18.8 (9-20) Glucose 32 L* (80-116) mg/dL Calcium 9.7 (8.6-10.2) mg/dL Total Bilirubin 0.3 (0.1-1.3) mg/dL AST 196 H* (5-25) IU/L ALT 68 H (12-36) U/L Alkaline Phosphatase 64 (56-112) IU/L Troponin I (<0.017-0.056) ng/mL C-Reactive Protein (0.5-0.9) mg/dL NT-Pro-B Natriuret Pep (<=450) pg/mL Total Protein 7.6 (6.0-8.0) g/dL Albumin 3.2 (3.2-4.6) g/dL Globulin 4.4 g/dL Albumin/Globulin Ratio 0.7 TSH, Ultra Sensitive 6.37 H (0.36-3.74) IU/mL Urine Color Yellow (YELLOW) Urine Appearance Slightly cloudy (CLEAR) Urine pH 5.0 (5.0-6.5) Ur Specific [place] 1.020 (1.010-1.025) Urine Protein Negative (NEGATIVE) mg/dL Urine Glucose (UA) Normal (NEGATIVE) mg/dL Urine Ketones Negative (NEGATIVE) mg/dL Urine Occult Blood Moderate H (NEGATIVE) Urine Nitrite Negative (NEGATIVE) Urine Bilirubin Negative (NEGATIVE) Urine Urobilinogen Normal (NEGATIVE) mg/dL Ur Leukocyte Esterase Negative (NEGATIVE) Urine RBC 0-5 (0) Urine WBC 0-5 (0) Ur Squamous Epith Cells Occasional (NS,R,O) Amorphous Sediment Few Urine Bacteria Few H (NS) - Re-Assessments/Exams Free Text/Narrative Re-Assessment/Exam: 04/20/17 17:48 tests and labs reviewed, d/w with pt, admission recommended, pt agrees pt barely able to stand, needed an assist of 2 to get back in bed BS 32, pt took 40u insulin this AM, did not eat lunch, being given juice now BUN/creat 32/1.7 now, up from baseline 23/1.3, c/w fluid overload BNP 662, which is improved from previous (893 from 4m ago), however clinically pt is showing HF exacerbation with inc'd fluid overload (inc'd peripheral edema , inc'd LFTs c/w passive liver congestion, weakness) AST/ALT 196/63 up form from 4m ago, will obtain a GB/liver u/s in AM, should improve with diuresis elevated CRP 1.4 of doubtful clinical significance, probably baseline for here DJD knees, has marked narrowing of medial compartment of L knee, right knee shows multiple screws and a plate and cement in the tibial plateau c/w ORIF for a tibeal plateau fx d-dimer 1850, of doubtful clinical sig, had a neg chest CTA several months ago, however will obtain LE u/s b/l tomorrow orthostasis with BP 103/48 ahd 84 supine, BP 115/59 and HR 107 standing Departure - Departure Time of Disposition: 17:55 Disposition: DC/Tfer to Medicaid Nur Fac [facility] Condition: Fair Clinical Impression: Acute exacerbation of congestive heart failure, Orthostasis, Hypoglycemia, Acute prerenal azotemia, Fluid overload, Elevated LFTs, Elevated d-dimer, Degenerative joint disease of knee, left, Degenerative joint disease of right knee, Morbid obesity, Fall from standing, Frail elderly, Weakness - Discharge Information Referrals: Devon Tineo MD [Primary Care Provider] - Forms: ED Department Discharge - My Orders Last 24 Hours: My Active Orders 04/20/17 15:34 Chest 2V [CR] Stat EKG 12 Lead [EK] Routine 04/20/17 15:35 Knee 3V Lt [CR] Stat Knee 3V Rt [CR] Stat 04/20/17 15:37 Orthostatic Vital Signs [RC] ASDIRECTED 04/20/17 16:40 Insert Urinary Catheter [OM.PC] Q24H Urinary Catheter Assessment [RC] QSHIFT - Assessment/Plan Last 24 Hours: My Active Orders 04/20/17 15:34 Chest 2V [CR] Stat EKG 12 Lead [EK] Routine 04/20/17 15:35 Knee 3V Lt [CR] Stat Knee 3V Rt [CR] Stat 04/20/17 15:37 Orthostatic Vital Signs [RC] ASDIRECTED 04/20/17 16:40 Insert Urinary Catheter [OM.PC] Q24H Urinary Catheter Assessment [RC] QSHIFT
[2017-04-20] MEDS ORDERED: Ondansetron 4 MG/2 ML SDV IV PRN (19:40)
[2017-04-20] MEDS ORDERED: Magnesium Hydroxide 400 MG/5 ML Susp 30 ML Cup PO PRN (19:40)
[2017-04-20] MEDS ORDERED: Enoxaparin 40 MG/0.4 ML Syringe SUBCUT SCH (19:45)
[2017-04-20] MEDS ORDERED: Furosemide 40 MG/4 ML VIAL IVPUSH SCH (19:45)
[2017-04-20] MEDS ORDERED: Amitriptyline 10 MG Tab PO PRN (19:46)
[2017-04-20] MEDS: Enoxaparin 30 MG/0.3 ML Syringe SUBCUT SCH (21:21)
[2017-04-20] MEDS: Acetaminophen 500 MG Tab PO SCH (21:21)
[2017-04-21] MEDS ORDERED: Insuln Aspart Prot/Insulin Aspart 100 Units/ML 3 ML FlexPen SUBCUT SCH (08:00)
[2017-04-21] MEDS ORDERED: Insulin Lispro Protamine/Lispro 75-25 100 Units/ML 10 ML Vial SUBCUT SCH (08:00)
[2017-04-21] MEDS: Multivitamin Tab PO SCH (08:58)
[2017-04-21] MEDS: Aspirin 81 MG Tab.EC PO SCH (08:58)
[2017-04-21] MEDS: Acetaminophen 500 MG Tab PO SCH ×4 (08:59→21:20)
[2017-04-21] MEDS ORDERED: Furosemide 40 MG/4 ML VIAL IVPUSH SCH (09:00)
[2017-04-21] MEDS ORDERED: amLODIPine 10 MG Tab PO SCH (09:00)
[2017-04-21] MEDS: Insuln Aspart Prot/Insulin Aspart 100 Units/ML 3 ML FlexPen SUBCUT SCH ×2 (09:02→18:17)
[2017-04-21] MEDS ORDERED: Sodium Chloride 0.9% 10 ML Syringe FLUSH PRN (09:08)
--- NOTE | 2017-04-21 10:33 | PCM.HP ---
H&P History of Present Illness - General Date of Service: 04/21/17 Admit Problem/Dx: Admission Diagnosis/Problem Admission Diagnosis/Problem Heart failure Source of Information: Patient History Limitations: Reports: No Limitations - History of Present Illness Initial Comments - Free Text/Narative: Kathy is an 86-year-old female admitted last night because of frequent falls, generalized weakness and debility. Kathy is in [facility] and was unable to ambulate independently. She has a history of chronic kidney disease, stable type 2 diabetes, stable and a remote history of multiple sclerosis. She was admitted in February with similar symptoms of weakness of the legs and inability to support herself. Most of the other times she walks with a walker. left knee Pain Score (Numeric/FACES): 1 - Related Data Allergies/Adverse Reactions: Allergies Allergy/AdvReac Type Severity Reaction Status Date / Time No Known Allergies Allergy Verified 04/20/17 14:58 Home Medications: Home Meds Amitriptyline [Elavil] 10 - 20 mg PO BEDTIME PRN 12/21/16 [History] Insulin Lispro Prot/Lispro [HumaLOG Mix 75-25] 40 units SUBCUT BIDMEALS [History] Multivitamin [One Daily] 1 tab PO DAILY 12/21/16 [History] Acetaminophen [Tylenol] 650 mg PO Q4H PRN tablet 12/28/16 [Rx] Aspirin [Adult Low Dose Aspirin EC] 81 mg PO DAILY #90 tablet. 12/28/16 [Rx] amLODIPine [Norvasc] 10 mg PO DAILY #30 tablet 03/09/17 [Rx] Past Medical History HEENT History: Reports: Cataract, Hard of Hearing Cardiovascular History: Reports: High Cholesterol, Hypertension, SOB on Exertion Respiratory History: Reports: SOB Genitourinary History: Reports: UTI, Recurrent CARDIOLOGY COORDINATOR History: Reports: Ectopic , , Other (See Below) Other OB/BYN History: several miscarriages Musculoskeletal History: Reports: Back Pain, Chronic Neurological History: Reports: MS Endocrine/Metabolic History: Reports: Diabetes, Type II, Obesity/BMI 30+ - Infectious Disease History Infectious Disease History: Reports: Chicken Pox, Measles, Mumps - Past Surgical History HEENT Surgical History: Reports: Cataract Surgery Other HEENT Surgeries/Procedures: B/L cataract surgery in 2014 GI Surgical History: Reports: Appendectomy, Cholecystectomy Female Surgical History: Reports: Tubal Ligation Musculoskeletal Surgical History: Reports: Knee Replacement, Other (See Below) Other Musculoskeletal Surgeries/Procedures:: right Social & Family History - Family History Family Medical History: Noncontributory - Tobacco Use Smoking Status *Q: Former Smoker Years of Tobacco use: 30 Used Tobacco, but Quit: Yes Month Tobacco Last Used: feb Second Hand Smoke Exposure: No - Caffeine Use Caffeine Use: Reports: Coffee Other Caffeine Use: 2 cups - Alcohol Use Days Per Week of Alcohol Use: 0 - Recreational Drug Use Recreational Drug Use: No H&P Review of Systems - Review of Systems: Review Of Systems: ROS reveals no pertinent complaints other than HPI. Exam - Exam Exam: See Below - Vital Signs Vital Signs: Last Vital Signs Temp 98.6 F 04/21/17 07:40 Pulse 71 04/21/17 07:40 Resp 16 04/21/17 07:40 BP 141/55 H 04/21/17 08:59 Pulse Ox 91 L 04/21/17 07:40 Weight: 97.658 kg - Exam General: Alert, Oriented, 4 HEENT: PERRLA, Hearing Intact, Mucosa Moist & [place], Nares Patent, Normal Nasal Septum, Posterior Pharynx Clear, Conjunctiva Clear, EOMI, EACs Clear, TMs Clear Neck: Supple, Trachea Midline, 2 Lungs: Clear to Auscultation, Normal Respiratory Effort Cardiovascular: Regular Rate, Regular Rhythm GI/Abdominal Exam: Normal Bowel Sounds, Soft, Non-Tender, No Organomegaly, No Distention, No Abnormal Bruit, No Mass, Pelvis Stable (Female) Exam: Deferred Rectal (Female) Exam: Deferred Back Exam: Normal Inspection, Full Range of Motion, NT Extremities: Normal Inspection, Normal Range of Motion, Non-Tender, No Pedal Edema, Normal Capillary Refill Skin: Warm, Dry, Intact Neurological: Cranial Nerves Intact, Reflexes Equal Bilateral Neuro Extensive - Mental Status: Alert, Oriented x3, Normal Mood/Affect, Normal Cognition Neuro Extensive - Motor, Sensory, Reflexes: CN II-XII Intact, Normal Gait, Normal Reflexes Psychiatric: Alert, Normal Affect, Normal Mood - Patient Data Lab Results Last 24 hrs: Laboratory Results - last 24 hr 04/20/17 04/21/17 04/21/17 Range/Units 21:12 06:55 06:55 Sodium 141 (135-145) mmol/L Potassium 5.1 (3.5-5.3) mmol/L Chloride 106 (100-110) mmol/L Carbon Dioxide 26 (21-32) mmol/L BUN 35 H (7-18) mg/dL Creatinine 1.8 H (0.55-1.02) mg/dL Est Cr Clr Drug Dosing 15.82 mL/min Estimated GFR (MDRD) 27 L (>60) BUN/Creatinine Ratio 19.4 (9-20) Glucose 92 (80-116) mg/dL POC Glucose 138 H (80-116) mg/dL Hemoglobin A1c 6.0 (4.5-6.2) % Calcium 9.0 (8.6-10.2) mg/dL 04/21/17 Range/Units 07:15 Sodium (135-145) mmol/L Potassium (3.5-5.3) mmol/L Chloride (100-110) mmol/L Carbon Dioxide (21-32) mmol/L BUN (7-18) mg/dL Creatinine (0.55-1.02) mg/dL Est Cr Clr Drug Dosing mL/min Estimated GFR (MDRD) (>60) BUN/Creatinine Ratio (9-20) Glucose (80-116) mg/dL POC Glucose 88 (80-116) mg/dL Hemoglobin A1c (4.5-6.2) % Calcium (8.6-10.2) mg/dL Result Diagrams: 04/20/17 16:05 04/21/17 06:55 *Q Meaningful Use (ADM) - VTE *Q VTE Criteria *Q: - Stroke *Q Stroke Criteria *Q: - AMI *Q AMI Criteria *Q: - Problem List (1) Frequent falls SNOMED Code(s): 367806436 ICD Code: R29.6 - REPEATED FALLS Status: Acute Current Visit: Yes (2) Weakness SNOMED Code(s): 17741976 ICD Code: R53.1 - WEAKNESS Status: Acute Current Visit: Yes (3) Unable to ambulate SNOMED Code(s): 544301951 ICD Code: R26.2 - DIFFICULTY IN WALKING, NOT ELSEWHERE CLASSIFIED Status: Acute Current Visit: No (4) CKD stage 3 due to type 2 diabetes mellitus SNOMED Code(s): 168216620576 ICD Code: E11.22 - TYPE 2 DIABETES MELLITUS W DIABETIC CHRONIC KIDNEY DISEASE ; N18.3 - CHRONIC KIDNEY DISEASE, STAGE 3 (MODERATE) Status: Chronic Current Visit: No (5) HTN (hypertension) SNOMED Code(s): 47401070 ICD Code: I10 - ESSENTIAL (PRIMARY) HYPERTENSION Status: Chronic Current Visit: No Problem Details: Continue current meds. Qualifiers: Hypertension type: unspecified Qualified Code(s): I10 - Essential (primary ) hypertension (6) Multiple sclerosis SNOMED Code(s): 07123631 ICD Code: G35 - MULTIPLE SCLEROSIS Status: Chronic Current Visit: No (7) Obesities, morbid SNOMED Code(s): 117348294 ICD Code: E66.01 - MORBID (SEVERE) OBESITY DUE TO EXCESS CALORIES Status: Acute Current Visit: Yes Problem List Initiated/Reviewed/Updated: Yes Orders Last 24hrs: Active Orders 24 hr Category Date Time Status Patient Status [ADT] Routine ADT 04/20/17 19:33 Active Blood Glucose Check, Bedside [RC] 07,1130,1730,21 Care 04/20/17 19:40 Active Oxygen Therapy [RC] PRN Care 04/20/17 19:33 Active Up With Assistance [RC] ASDIRECTED Care 04/20/17 19:40 Active Vital Signs [RC] 04,08,12,16,20,00 Care 04/20/17 19:33 Active Consult to Ticket Scheduler [CONS] Routine Cons 04/20/17 19:40 Active OT Evaluation and Treatment [CONS] Routine Cons 04/21/17 09:22 Active PT Evaluation and Treatment [CONS] Routine Cons 04/21/17 09:00 Active 2 Gram Sodium Diet [DIET] Diet 04/21/17 Breakfast Active Consistent Carbohydrate Diet [DIET] Diet 04/21/17 Breakfast Active Abdomen Ltd [US] Routine Exams 04/20/17 19:33 Ordered Echo Comp wo Cont [US] Routine Exams 04/21/17 09:00 Ordered VL Duplex Lwr Ext Veins Comp [US] Routine Exams 04/21/17 09:00 Ordered VL Duplex Lwr Ext Veins Ltd Rt [US] Routine Exams 04/21/17 09:00 Ordered FREE T4 [REF] Routine Lab 04/21/17 06:55 Received Acetaminophen [Tylenol Extra Strength] Med 04/20/17 21:00 Active 1,000 mg PO QID Amitriptyline [Elavil] Med 04/20/17 19:46 Active 10 mg PO BEDTIME PRN Aspirin [Halfprin] Med 04/21/17 09:00 Active 81 mg PO DAILY Enoxaparin [Lovenox] Med 04/20/17 21:00 Active 30 mg SUBCUT Q24H Furosemide [Lasix] Med 04/21/17 09:00 Active 40 mg IVPUSH DAILY Insuln Asp Prot/Insulin Aspart [NovoLOG Mix 70-30] Med 04/21/17 08:00 Active 40 unit SUBCUT BIDMEALS Magnesium Hydroxide [Milk of Magnesia] Med 04/20/17 19:40 Active 30 ml PO Q12H PRN Multivitamins [Tab-A-Jodie] Med 04/21/17 09:00 Active 1 tab PO DAILY Ondansetron [Zofran] Med 04/20/17 19:40 Active 4 mg IV Q4H PRN Sodium Chloride 0.9% [Saline Flush] Med 04/21/17 09:08 Active 10 ml FLUSH ASDIRECTED PRN amLODIPine [Norvasc] Med 04/21/17 09:00 Active 10 mg PO DAILY Resuscitation Status Routine Resus Stat 04/20/17 19:33 Ordered Medication Orders Acetaminophen (Tylenol Extra Strength) 1,000 mg PO QID [facility] Last Admin: 04/21/17 08:59 Dose: 1,000 mg Admin: 04/20/17 21:21 Dose: 1,000 mg Amitriptyline HCl (Elavil) 10 mg PO BEDTIME PRN PRN Reason: nerve pain Amlodipine Besylate (Norvasc) 10 mg PO DAILY [facility] Last Admin: 04/21/17 08:59 Dose: 10 mg Aspirin (Halfprin) 81 mg PO DAILY [facility] Last Admin: 04/21/17 08:58 Dose: 81 mg Enoxaparin Sodium (Lovenox) 30 mg SUBCUT Q24H [facility] Last Admin: 04/20/17 21:21 Dose: 30 mg Furosemide (Lasix) 40 mg IVPUSH DAILY [facility] Last Admin: 04/21/17 08:59 Dose: 40 mg Insulin Aspart (Novolog Mix 70-30) 40 unit SUBCUT BIDMEALS [facility] Last Admin: 04/21/17 09:02 Dose: 40 units Magnesium Hydroxide (Milk Of Magnesia) 30 ml PO Q12H PRN PRN Reason: Constipation Multivitamins/Minerals/Vitamin C (Tab-A-Jodie) 1 tab PO DAILY [facility] Last Admin: 04/21/17 08:58 Dose: 1 tab Ondansetron HCl (Zofran) 4 mg IV Q4H PRN PRN Reason: Nausea/Vomiting Sodium Chloride (Saline Flush) 10 ml FLUSH ASDIRECTED PRN PRN Reason: Keep Vein Open Assessment/Plan Comment:: The etiology of a frequent falls is undetermined at this time. I will obtain a CT of the head,to rule out Subdural hematoma/mass leasions.stroke.I've consulted physical and occupational therapy for strengthening, along with the social services director to determine disposition and to see if she is able to go back to independent living facility. An echocardiogram was ordered and extend this morning. We'll resume home medications.
--- NOTE | 2017-04-21 10:48 | CR ---
INDICATION: Fell yesterday, pain. LEFT KNEE: Three views of the left knee revealed an appearance of demineralization, suggesting osteoporosis - correlate clinically. Medial joint space loss is suggested of at least mild degree with minimal hypertrophic degenerative changes at the medial intercondylar spine, medially off the tibia, and medially and laterally off the femur. A fracture, dislocation, or other acute bone or joint abnormality was not identified. IMPRESSION: Osteoporosis - osteoarthritis - no fracture or dislocation seen. [facility]
--- NOTE | 2017-04-21 10:53 | CR ---
INDICATION: Fell yesterday, pain. RIGHT KNEE: Three views of the right knee revealed evidence of previous fracture with long plate and multiple screws fixing proximal tibial fracture fragments in place. Some sclerotic density material is likely bone cement. Hypertrophic degenerative changes are noted medially and laterally off the femur and tibia with lateral femorotibial joint space loss suggested but not well-delineated. Hypertrophic changes are also noted at the intercondylar spines and notch. A definite acute fracture or dislocation was not identified. The plate and screws appear to be intact at the tibia. Diminished bone density is noted, compatible with osteoporosis. IMPRESSION: No definite acute fracture or dislocation - findings as noted above. [facility]
--- NOTE | 2017-04-21 10:57 | CR ---
INDICATION: Weak, falling, history of heart failure. CHEST: AP and lateral views of the chest 04/20/2017 were compared with 2016 and 12/23/2016. Probable fibrotic changes are again noted at the lung bases and lower middle lung field additionally on the left without a definite consolidating pneumonia or effusion identified. No definite contusion or pneumothorax was identified. Minimal patchy pneumonia is difficult to exclude in the areas of increased density at the lung bases and lower middle lung field on the left, however. Findings compatible with ASHD with cardiomegaly - LVE and tortuous aorta calcified in the arch noted again. Findings compatible with COPD are also noted with AP diameter prominence, hyperaeration, and flattened diaphragm leaves. Diminished bone density is noted compatible with osteoporosis with degenerative changes in the spine. IMPRESSION: No definite acute process with multiple findings as noted above. MTDD
--- NOTE | 2017-04-21 15:01 | US ---
INDICATION: Increased D-dimer, question DVT. DUPLEX ULTRASOUND, BILATERAL LOWER EXTREMITY VEINS: Utilizing 2-D real time, duplex Doppler spectral analysis and color flow imaging, examination of the right and left lower extremity deep veins and the proximal greater saphenous veins bilaterally and to the knee on the right, showed no evidence of abnormal compression and showed normal blood flow. No evidence of deep venous thrombosis was identified. The patient was unable to cooperate with valve competence evaluation. IMPRESSION: No evidence of deep venous thrombosis or greater saphenous thrombosis proximally. MTDD
--- NOTE | 2017-04-21 15:08 | US ---
INDICATION: New increased LFTs. ULTRASOUND ABDOMEN, COMPLETE: Multiple ultrasonic images revealed the abdominal aorta to be normal in caliber, measuring 1.2 and 1.4 cm, proximal and mid. The common bile duct was somewhat prominent, measuring approximately 7-9 mm in actual diameter. This is compatible with the patients advanced age but should be correlated clinically. The gallbladder is absent, compatible with history of its removal. The liver has a somewhat heterogeneous appearance, perhaps with some increase in echogenicity, raising question of fatty infiltration. This should be correlated clinically. The right kidney measured 9 x 3.2 x 4 cm. The left kidney measured 8.2 x 3.2 x 3.5 cm. Mild irregularities of the renal cortices are noted, compatible with mild renal cortical scarring. A mild degree of renal cortical thinning is also noted. The kidneys were not ideally visualized, but no gross abnormalities could be identified. The spleen appeared normal in size, measuring 6.5 x 4.1 cm. The pancreatic duct was visualized. No definite pancreatic abnormality was identified, except for some fatty replacement. The IVC was phasic. IMPRESSION: 1. Suggestion of somewhat geographic fatty infiltration of the liver. 2. Mild renal cortical scarring. 3. Post cholecystectomy. MTDD
--- NOTE | 2017-04-21 15:14 | CT ---
INDICATION: Frequent falls. CT HEAD WITHOUT CONTRAST: Serial contiguous 2.5 and 5 mm sections were obtained through the brain without contrast 04/21/2017 - no comparisons. Total exam DLP = 949.36 mGy-cm. Paranasal sinuses and mastoid air cells are well-aerated. No definite cranial abnormality was identified. Calcifications are noted in the vertebral and internal carotid arteries. No shift of midline structures was identified. The ventricles are prominent, as are the sulci, compatible with generalized atrophy but more prominent central atrophy. White matter changes are diffuse and moderately severe, compatible with microvascular disease, although other cause of leukoencephalopathy, such as anoxic encephalopathy, cannot be excluded. No bleeding site or hematoma was identified. There are some innocuous calcifications in the basal ganglia. What may be lacunar infarcts in the basal ganglia are noted bilaterally. There is some artifact due to motion on multiple images. IMPRESSION: 1. 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 2. Central and to a slightly lesser extent cortical atrophy. 3. Possible lacunar infarcts. 4. Cerebrovascular disease with arterial calcifications in the internal carotid and vertebral arteries. MTDD
[2017-04-21] MEDS: Enoxaparin 30 MG/0.3 ML Syringe SUBCUT SCH (21:17)
[2017-04-22] MEDS: Insuln Aspart Prot/Insulin Aspart 100 Units/ML 3 ML FlexPen SUBCUT SCH ×2 (08:29→17:21)
[2017-04-22] MEDS ORDERED: Melatonin 3 MG Tab PO PRN (08:34)
[2017-04-22] MEDS: Multivitamin Tab PO SCH (08:38)
[2017-04-22] MEDS: Acetaminophen 500 MG Tab PO SCH ×4 (08:38→20:27)
[2017-04-22] MEDS: Aspirin 81 MG Tab.EC PO SCH (08:38)
--- NOTE | 2017-04-22 08:39 | PCM.PN ---
- General Info Date of Service: 04/22/17 Subjective Update: Kathy has no new complaints this morning. She still has bilateral leg weakness and unable to support herself even with a walker. She has no headache, and her memory has been sharp. No chest pain. She did have some shortness of breath and leg swelling has improved after diuresis. - Review of Systems Gastrointestinal: Reports: No Symptoms Genitourinary: Reports: No Symptoms Musculoskeletal: Reports: No Symptoms - Patient Data Vitals - Most Recent: Last Vital Signs Temp 97.6 F 04/22/17 04:00 Pulse 68 04/22/17 04:00 Resp 20 04/22/17 04:00 BP 149/76 H 04/22/17 04:00 Pulse Ox 93 L 04/22/17 04:00 Weight - Most Recent: 97.069 kg Lab Results Last 24 Hours: Laboratory Results - last 24 hr 04/21/17 04/21/17 04/21/17 Range/Units 12:19 17:29 21:19 WBC (4.5-12.0) X10-3/uL RBC (3.23-5.20) x10(6)uL Hgb (11.5-15.5) g/dL Hct (30.0-51.3) % MCV (80-96) fL MCH (27.7-33.6) pg MCHC (32.2-35.4) g/dL RDW (11.5-15.5) % Plt Count (125-369) X10(3)uL MPV (7.4-10.4) fL Neut % (Auto) (46-82) % Lymph % (Auto) (13-37) % Amador % (Auto) (4-12) % Eos % (Auto) (1.0-5.0) % Baso % (Auto) (0-2) % Neut # (Auto) (1.6-8.3) # Lymph # (Auto) (0.6-5.0) # Amador # (Auto) (0.0-1.3) # Eos # (Auto) (0.0-0.8) # Baso # (Auto) (0.0-0.2) # Sodium (135-145) mmol/L Potassium (3.5-5.3) mmol/L Chloride (100-110) mmol/L Carbon Dioxide (21-32) mmol/L BUN (7-18) mg/dL Creatinine (0.55-1.02) mg/dL Est Cr Clr Drug Dosing mL/min Estimated GFR (MDRD) (>60) BUN/Creatinine Ratio (9-20) Glucose (80-116) mg/dL POC Glucose 58 L 125 H 75 L (80-116) mg/dL Calcium (8.6-10.2) mg/dL Troponin I (<0.017-0.056) ng/mL 04/22/17 04/22/17 04/22/17 Range/Units 06:10 06:10 06:10 WBC 7.2 (4.5-12.0) X10-3/uL RBC 4.00 (3.23-5.20) x10(6)uL Hgb 11.8 (11.5-15.5) g/dL Hct 35.7 (30.0-51.3) % MCV 89.1 (80-96) fL MCH 29.5 (27.7-33.6) pg MCHC 33.1 (32.2-35.4) g/dL RDW 12.4 (11.5-15.5) % Plt Count 262 (125-369) X10(3)uL MPV 7.0 L (7.4-10.4) fL Neut % (Auto) 53.3 (46-82) % Lymph % (Auto) 29.9 (13-37) % Amador % (Auto) 12.3 H (4-12) % Eos % (Auto) 4 (1.0-5.0) % Baso % (Auto) 1 (0-2) % Neut # (Auto) 3.8 (1.6-8.3) # Lymph # (Auto) 2.2 (0.6-5.0) # Amador # (Auto) 0.9 (0.0-1.3) # Eos # (Auto) 0.3 (0.0-0.8) # Baso # (Auto) 0.0 (0.0-0.2) # Sodium 141 (135-145) mmol/L Potassium 5.3 (3.5-5.3) mmol/L Chloride 105 (100-110) mmol/L Carbon Dioxide 29 (21-32) mmol/L BUN 47 H D (7-18) mg/dL Creatinine 2.0 H* (0.55-1.02) mg/dL Est Cr Clr Drug Dosing 14.23 mL/min Estimated GFR (MDRD) 24 L (>60) BUN/Creatinine Ratio 23.5 H (9-20) Glucose 77 L (80-116) mg/dL POC Glucose (80-116) mg/dL Calcium 9.2 (8.6-10.2) mg/dL Troponin I < 0.017 L (<0.017-0.056) ng/mL 04/22/17 Range/Units 06:17 WBC (4.5-12.0) X10-3/uL RBC (3.23-5.20) x10(6)uL Hgb (11.5-15.5) g/dL Hct (30.0-51.3) % MCV (80-96) fL MCH (27.7-33.6) pg MCHC (32.2-35.4) g/dL RDW (11.5-15.5) % Plt Count (125-369) X10(3)uL MPV (7.4-10.4) fL Neut % (Auto) (46-82) % Lymph % (Auto) (13-37) % Amador % (Auto) (4-12) % Eos % (Auto) (1.0-5.0) % Baso % (Auto) (0-2) % Neut # (Auto) (1.6-8.3) # Lymph # (Auto) (0.6-5.0) # Amador # (Auto) (0.0-1.3) # Eos # (Auto) (0.0-0.8) # Baso # (Auto) (0.0-0.2) # Sodium (135-145) mmol/L Potassium (3.5-5.3) mmol/L Chloride (100-110) mmol/L Carbon Dioxide (21-32) mmol/L BUN (7-18) mg/dL Creatinine (0.55-1.02) mg/dL Est Cr Clr Drug Dosing mL/min Estimated GFR (MDRD) (>60) BUN/Creatinine Ratio (9-20) Glucose (80-116) mg/dL POC Glucose 75 L (80-116) mg/dL Calcium (8.6-10.2) mg/dL Troponin I (<0.017-0.056) ng/mL Med Orders - Current: Current Medications Acetaminophen (Tylenol Extra Strength) 1,000 mg PO QID [facility] Last Admin: 04/21/17 21:20 Dose: 1,000 mg Aspirin (Halfprin) 81 mg PO DAILY [facility] Last Admin: 04/21/17 08:58 Dose: 81 mg Enoxaparin Sodium (Lovenox) 30 mg SUBCUT Q24H [facility] Last Admin: 04/21/17 21:17 Dose: 30 mg Furosemide (Lasix) 20 mg PO DAILY [facility] Insulin Aspart (Novolog Mix 70-30) 40 unit SUBCUT BIDMEALS [facility] Last Admin: 04/21/17 18:17 Dose: 40 units Magnesium Hydroxide (Milk Of Magnesia) 30 ml PO Q12H PRN PRN Reason: Constipation Melatonin (Melatonin) 6 mg PO BEDTIME PRN PRN Reason: Insomnia Multivitamins/Minerals/Vitamin C (Tab-A-Jodie) 1 tab PO DAILY [facility] Last Admin: 04/21/17 08:58 Dose: 1 tab Ondansetron HCl (Zofran) 4 mg IV Q4H PRN PRN Reason: Nausea/Vomiting Sodium Chloride (Saline Flush) 10 ml FLUSH ASDIRECTED PRN PRN Reason: Keep Vein Open Discontinued Medications Amitriptyline HCl (Elavil) 10 mg PO BEDTIME PRN PRN Reason: nerve pain Last Admin: 04/22/17 01:31 Dose: 10 mg Amlodipine Besylate (Norvasc) 10 mg PO DAILY [facility] Last Admin: 04/21/17 08:59 Dose: 10 mg Enoxaparin Sodium (Lovenox) 40 mg SUBCUT Q24H [facility] Last Admin: 04/20/17 23:45 Dose: Not Given Furosemide (Lasix) 40 mg IVPUSH DAILY [facility] Last Admin: 04/20/17 23:46 Dose: Not Given Furosemide (Lasix) 40 mg IVPUSH DAILY [facility] Last Admin: 04/21/17 08:59 Dose: 40 mg - Exam Quality Assessment: No: Supplemental Oxygen General: Alert, Oriented, Cooperative, No Acute Distress HEENT: Pupils Equal Neck: Supple Lungs: Clear to Auscultation Cardiovascular: Regular Rate Extremities: Normal Inspection, Normal Range of Motion, Non-Tender, No Pedal Edema, Normal Capillary Refill Psy/Mental Status: Alert, Normal Affect, Normal Mood - Problem List & Annotations (1) Frequent falls SNOMED Code(s): 222872520 Code(s): R29.6 - REPEATED FALLS Status: Acute Current Visit: Yes (2) Weakness SNOMED Code(s): 33446581 Code(s): R53.1 - WEAKNESS Status: Acute Current Visit: Yes (3) Unable to ambulate SNOMED Code(s): 539009725 Code(s): R26.2 - DIFFICULTY IN WALKING, NOT ELSEWHERE CLASSIFIED Status: Acute Current Visit: No (4) CKD stage 3 due to type 2 diabetes mellitus SNOMED Code(s): 932539270307 Code(s): E11.22 - TYPE 2 DIABETES MELLITUS W DIABETIC CHRONIC KIDNEY DISEASE ; N18.3 - CHRONIC KIDNEY DISEASE, STAGE 3 (MODERATE) Status: Chronic Current Visit: No (5) HTN (hypertension) SNOMED Code(s): 51918814 Code(s): I10 - ESSENTIAL (PRIMARY) HYPERTENSION Status: Chronic Current Visit: No Qualifiers: Hypertension type: unspecified Qualified Code(s): I10 - Essential (primary ) hypertension Annotation/Comment:: Continue current meds. (6) Multiple sclerosis SNOMED Code(s): 05321924 Code(s): G35 - MULTIPLE SCLEROSIS Status: Chronic Current Visit: No (7) Obesities, morbid SNOMED Code(s): 565623737 Code(s): E66.01 - MORBID (SEVERE) OBESITY DUE TO EXCESS CALORIES Status: Acute Current Visit: Yes - Problem List Review Problem List Initiated/Reviewed/Updated: Yes - My Orders Last 24 Hours: My Active Orders 04/21/17 09:08 Sodium Chloride 0.9% [Saline Flush] 10 ml FLUSH ASDIRECTED PRN 04/21/17 09:22 OT Evaluation and Treatment [CONS] Routine 04/22/17 08:34 Melatonin 6 mg PO BEDTIME PRN 04/23/17 05:11 BASIC METABOLIC PANEL,BMP [CHEM] AM CBC WITH AUTO DIFF [HEME] AM PRO B-TYPE NATRIUR PEPT,BNPPRO [CHEM] DAILY 04/23/17 09:00 Furosemide [Lasix] 20 mg PO DAILY 04/24/17 05:11 PRO B-TYPE NATRIUR PEPT,BNPPRO [CHEM] DAILY - Plan Plan:: Kathy CT scan revealed cortical atrophy possibly microvascular cerebrovascular disease. An echocardiogram revealed ejection fraction of about 55%. Her peripheral ultrasound an abdominal ultrasound were unremarkable. Her creatinine has jumped to 2.0 after IV Lasix. However she has improved in terms of shortness of breath and leg swelling. Her blood pressures been stable. My plan is to continue physical therapy, I changed IV Lasix to oral and decreased it to 20 mg once a day. We will do daily I and O and weight. I will repeat creatinine and BUN and in the morning. I discontinued Norvasc which could cause leg swelling, will observe blood pressure to see if we need antihypertensive. She is on no medications for type 2 diabetes.A1c was 6.0.
[2017-04-22] MEDS: Furosemide 20 MG Tab PO SCH (08:56)
[2017-04-22] MEDS: Enoxaparin 30 MG/0.3 ML Syringe SUBCUT SCH (20:26)
--- NOTE | 2017-04-23 07:50 | PCM.PN ---
- General Info Date of Service: 04/23/17 Subjective Update: Patient had a low blood sugar overnight. She slept well. She is not eating well because she doesn't like the food. She reports that she stronger and able to walk with some assistance and using a walker. She has no chest pain, shortness of breath fever or chills. Functional Status: Reports: Pain Controlled - Review of Systems General: Reports: No Symptoms HEENT: Reports: No Symptoms Pulmonary: Reports: No Symptoms Cardiovascular: Reports: No Symptoms - Patient Data Vitals - Most Recent: Last Vital Signs Temp 97.6 F 04/23/17 00:00 Pulse 74 04/23/17 00:00 Resp 16 04/23/17 00:00 BP 139/72 04/23/17 00:00 Pulse Ox 91 L 04/23/17 00:00 Weight - Most Recent: 97.069 kg I&O - Last 24 Hours: Intake & Output 04/22/17 04/23/17 04/23/17 21:59 06:59 14:59 Intake Total Balance Lab Results Last 24 Hours: Laboratory Results - last 24 hr 04/22/17 04/22/17 04/22/17 Range/Units 06:10 06:10 06:10 WBC 7.2 (4.5-12.0) X10-3/uL RBC 4.00 (3.23-5.20) x10(6)uL Hgb 11.8 (11.5-15.5) g/dL Hct 35.7 (30.0-51.3) % MCV 89.1 (80-96) fL MCH 29.5 (27.7-33.6) pg MCHC 33.1 (32.2-35.4) g/dL RDW 12.4 (11.5-15.5) % Plt Count 262 (125-369) X10(3)uL MPV 7.0 L (7.4-10.4) fL Neut % (Auto) 53.3 (46-82) % Lymph % (Auto) 29.9 (13-37) % Ponce % (Auto) 12.3 H (4-12) % Eos % (Auto) 4 (1.0-5.0) % Baso % (Auto) 1 (0-2) % Neut # (Auto) 3.8 (1.6-8.3) # Lymph # (Auto) 2.2 (0.6-5.0) # Ponce # (Auto) 0.9 (0.0-1.3) # Eos # (Auto) 0.3 (0.0-0.8) # Baso # (Auto) 0.0 (0.0-0.2) # Sodium 141 (135-145) mmol/L Potassium 5.3 (3.5-5.3) mmol/L Chloride 105 (100-110) mmol/L Carbon Dioxide 29 (21-32) mmol/L BUN 47 H D (7-18) mg/dL Creatinine 2.0 H* (0.55-1.02) mg/dL Est Cr Clr Drug Dosing 14.23 mL/min Estimated GFR (MDRD) 24 L (>60) BUN/Creatinine Ratio 23.5 H (9-20) Glucose 77 L (80-116) mg/dL POC Glucose (80-116) mg/dL Calcium 9.2 (8.6-10.2) mg/dL Troponin I < 0.017 L (<0.017-0.056) ng/mL NT-Pro-B Natriuret Pep (<=450) pg/mL 04/22/17 04/22/17 04/22/17 Range/Units 11:32 17:18 20:24 WBC (4.5-12.0) X10-3/uL RBC (3.23-5.20) x10(6)uL Hgb (11.5-15.5) g/dL Hct (30.0-51.3) % MCV (80-96) fL MCH (27.7-33.6) pg MCHC (32.2-35.4) g/dL RDW (11.5-15.5) % Plt Count (125-369) X10(3)uL MPV (7.4-10.4) fL Neut % (Auto) (46-82) % Lymph % (Auto) (13-37) % Ponce % (Auto) (4-12) % Eos % (Auto) (1.0-5.0) % Baso % (Auto) (0-2) % Neut # (Auto) (1.6-8.3) # Lymph # (Auto) (0.6-5.0) # Ponce # (Auto) (0.0-1.3) # Eos # (Auto) (0.0-0.8) # Baso # (Auto) (0.0-0.2) # Sodium (135-145) mmol/L Potassium (3.5-5.3) mmol/L Chloride (100-110) mmol/L Carbon Dioxide (21-32) mmol/L BUN (7-18) mg/dL Creatinine (0.55-1.02) mg/dL Est Cr Clr Drug Dosing mL/min Estimated GFR (MDRD) (>60) BUN/Creatinine Ratio (9-20) Glucose (80-116) mg/dL POC Glucose 117 H 122 H 82 (80-116) mg/dL Calcium (8.6-10.2) mg/dL Troponin I (<0.017-0.056) ng/mL NT-Pro-B Natriuret Pep (<=450) pg/mL 04/22/17 04/22/17 04/22/17 Range/Units 23:35 23:40 23:56 WBC (4.5-12.0) X10-3/uL RBC (3.23-5.20) x10(6)uL Hgb (11.5-15.5) g/dL Hct (30.0-51.3) % MCV (80-96) fL MCH (27.7-33.6) pg MCHC (32.2-35.4) g/dL RDW (11.5-15.5) % Plt Count (125-369) X10(3)uL MPV (7.4-10.4) fL Neut % (Auto) (46-82) % Lymph % (Auto) (13-37) % Ponce % (Auto) (4-12) % Eos % (Auto) (1.0-5.0) % Baso % (Auto) (0-2) % Neut # (Auto) (1.6-8.3) # Lymph # (Auto) (0.6-5.0) # Ponce # (Auto) (0.0-1.3) # Eos # (Auto) (0.0-0.8) # Baso # (Auto) (0.0-0.2) # Sodium (135-145) mmol/L Potassium (3.5-5.3) mmol/L Chloride (100-110) mmol/L Carbon Dioxide (21-32) mmol/L BUN (7-18) mg/dL Creatinine (0.55-1.02) mg/dL Est Cr Clr Drug Dosing mL/min Estimated GFR (MDRD) (>60) BUN/Creatinine Ratio (9-20) Glucose 34 L* (80-116) mg/dL POC Glucose 39 L* 57 L (80-116) mg/dL Calcium (8.6-10.2) mg/dL Troponin I (<0.017-0.056) ng/mL NT-Pro-B Natriuret Pep (<=450) pg/mL 04/23/17 04/23/17 04/23/17 Range/Units 06:20 06:20 06:20 WBC 8.5 (4.5-12.0) X10-3/uL RBC 3.96 (3.23-5.20) x10(6)uL Hgb 11.7 (11.5-15.5) g/dL Hct 35.2 (30.0-51.3) % MCV 88.9 (80-96) fL MCH 29.6 (27.7-33.6) pg MCHC 33.3 (32.2-35.4) g/dL RDW 12.9 (11.5-15.5) % Plt Count 255 (125-369) X10(3)uL MPV 7.0 L (7.4-10.4) fL Neut % (Auto) 62.0 (46-82) % Lymph % (Auto) 22.3 (13-37) % Ponce % (Auto) 11.2 (4-12) % Eos % (Auto) 3 (1.0-5.0) % Baso % (Auto) 1 (0-2) % Neut # (Auto) 5.2 (1.6-8.3) # Lymph # (Auto) 1.9 (0.6-5.0) # Ponce # (Auto) 1.0 (0.0-1.3) # Eos # (Auto) 0.3 (0.0-0.8) # Baso # (Auto) 0.1 (0.0-0.2) # Sodium 142 (135-145) mmol/L Potassium 6.1 H (3.5-5.3) mmol/L Chloride 106 (100-110) mmol/L Carbon Dioxide 27 (21-32) mmol/L BUN 55 H (7-18) mg/dL Creatinine 2.0 H* (0.55-1.02) mg/dL Est Cr Clr Drug Dosing 14.23 mL/min Estimated GFR (MDRD) 24 L (>60) BUN/Creatinine Ratio 27.5 H (9-20) Glucose 83 (80-116) mg/dL POC Glucose (80-116) mg/dL Calcium 9.2 (8.6-10.2) mg/dL Troponin I (<0.017-0.056) ng/mL NT-Pro-B Natriuret Pep 250 (<=450) pg/mL Med Orders - Current: Current Medications Acetaminophen (Tylenol Extra Strength) 1,[address] [facility] Last Admin: 04/22/17 20:27 Dose: 1,000 mg Aspirin (Halfprin) [address] [facility] Last Admin: 04/22/17 08:38 Dose: 81 mg Enoxaparin Sodium (Lovenox) [address] [facility] Last Admin: 04/22/17 20:26 Dose: 30 mg Furosemide (Lasix) [address] [facility] Last Admin: 04/22/17 08:56 Dose: 20 mg Magnesium Hydroxide (Milk Of Magnesia) 30 ml PO Q12H PRN PRN Reason: Constipation Melatonin (Melatonin) 6 mg PO BEDTIME PRN PRN Reason: Insomnia Multivitamins/Minerals/Vitamin C (Tab-A-Jodie) [address] [facility] Last Admin: 04/22/17 08:38 Dose: 1 tab Ondansetron HCl (Zofran) 4 mg IV Q4H PRN PRN Reason: Nausea/Vomiting Sodium Chloride (Saline Flush) 10 ml FLUSH ASDIRECTED PRN PRN Reason: Keep Vein Open Discontinued Medications Amitriptyline HCl (Elavil) 10 mg PO BEDTIME PRN PRN Reason: nerve pain Last Admin: 04/22/17 01:31 Dose: 10 mg Amlodipine Besylate (Norvasc) [address] [facility] Last Admin: 04/21/17 08:59 Dose: 10 mg Enoxaparin Sodium (Lovenox) [address] [facility] Last Admin: 04/20/17 23:45 Dose: Not Given Furosemide (Lasix) [address] [facility] Last Admin: 04/20/17 23:46 Dose: Not Given Furosemide (Lasix) [address] [facility] Last Admin: 04/21/17 08:59 Dose: 40 mg Insulin Aspart (Novolog Mix 70-30) [address] [facility] Last Admin: 04/22/17 17:21 Dose: 40 units - Exam Quality Assessment: Supplemental Oxygen General: Alert HEENT: Pupils Equal Neck: Supple Lungs: Clear to Auscultation Cardiovascular: Regular Rate - Problem List & Annotations (1) Frequent falls SNOMED Code(s): 189202416 Code(s): R29.6 - REPEATED FALLS Status: Acute Current Visit: Yes (2) Weakness SNOMED Code(s): 14614822 Code(s): R53.1 - WEAKNESS Status: Acute Current Visit: Yes (3) Unable to ambulate SNOMED Code(s): 108367053 Code(s): R26.2 - DIFFICULTY IN WALKING, NOT ELSEWHERE CLASSIFIED Status: Acute Current Visit: No (4) CKD stage 3 due to type 2 diabetes mellitus SNOMED Code(s): 176148529699 Code(s): E11.22 - TYPE 2 DIABETES MELLITUS W DIABETIC CHRONIC KIDNEY DISEASE ; N18.3 - CHRONIC KIDNEY DISEASE, STAGE 3 (MODERATE) Status: Chronic Current Visit: No (5) HTN (hypertension) SNOMED Code(s): 79713734 Code(s): I10 - ESSENTIAL (PRIMARY) HYPERTENSION Status: Chronic Current Visit: No Qualifiers: Hypertension type: unspecified Qualified Code(s): I10 - Essential (primary ) hypertension Annotation/Comment:: Continue current meds. (6) Multiple sclerosis SNOMED Code(s): 11513739 Code(s): G35 - MULTIPLE SCLEROSIS Status: Chronic Current Visit: No (7) Obesities, morbid SNOMED Code(s): 718806207 Code(s): E66.01 - MORBID (SEVERE) OBESITY DUE TO EXCESS CALORIES Status: Acute Current Visit: Yes (8) Hyperkalemia SNOMED Code(s): 95514685 Code(s): E87.5 - HYPERKALEMIA Status: Acute Current Visit: Yes - Problem List Review Problem List Initiated/Reviewed/Updated: Yes - My Orders Last 24 Hours: My Active Orders 04/22/17 08:34 Melatonin 6 mg PO BEDTIME PRN 04/22/17 09:00 Furosemide [Lasix] 20 mg PO DAILY 04/23/17 07:39 MAGNESIUM [CHEM] Routine POTASSIUM,K [CHEM] Routine 04/24/17 05:11 PRO B-TYPE NATRIUR PEPT,BNPPRO [CHEM] DAILY - Plan Plan:: I will hold off the insulin, repeat her potassium and magnesium level.The repeat K was 5.8. Will repeat BMP in AM. May benefit from a lower dose of long activng insulin later,or even an oral med eg Glipizide.Await PT assessment tomorrow for disposition
[2017-04-23] MEDS: Acetaminophen 500 MG Tab PO SCH ×4 (08:54→20:28)
[2017-04-23] MEDS: Multivitamin Tab PO SCH (08:54)
[2017-04-23] MEDS: Aspirin 81 MG Tab.EC PO SCH (08:54)
[2017-04-23] MEDS: Furosemide 20 MG Tab PO SCH (08:55)
[2017-04-23] MEDS: Enoxaparin 30 MG/0.3 ML Syringe SUBCUT SCH (20:27)
[2017-04-24] MEDS: Aspirin 81 MG Tab.EC PO SCH (08:30)
[2017-04-24] MEDS: Acetaminophen 500 MG Tab PO SCH (08:31)
[2017-04-24] MEDS: Multivitamin Tab PO SCH (08:31)
[2017-04-24] MEDS: Furosemide 20 MG Tab PO SCH (08:31)
--- NOTE | 2017-04-24 09:42 | PCM.PN ---
- General Info Date of Service: 04/24/17 Subjective Update: Patient had no events overnight. She slept well. She is not eating well because she doesn't like the food. Sugar was 130 this morning.She reports that she stronger and able to walk with some assistance and using a walker. She has no chest pain, shortness of breath fever or chills. - Review of Systems HEENT: Reports: No Symptoms Pulmonary: Reports: No Symptoms Cardiovascular: Reports: No Symptoms Gastrointestinal: Reports: No Symptoms Genitourinary: Reports: No Symptoms - Patient Data Vitals - Most Recent: Last Vital Signs Temp 98.2 F 04/24/17 04:00 Pulse 53 L 04/24/17 04:00 Resp 18 04/24/17 04:00 BP 154/60 H 04/24/17 04:00 Pulse Ox 92 L 04/24/17 04:00 Weight - Most Recent: 97.795 kg Lab Results Last 24 Hours: Laboratory Results - last 24 hr 04/21/17 04/23/17 04/23/17 Range/Units 06:55 10:23 16:14 Sodium (135-145) mmol/L Potassium (3.5-5.3) mmol/L Chloride (100-110) mmol/L Carbon Dioxide (21-32) mmol/L BUN (7-18) mg/dL Creatinine (0.55-1.02) mg/dL Est Cr Clr Drug Dosing mL/min Estimated GFR (MDRD) (>60) BUN/Creatinine Ratio (9-20) Glucose (80-116) mg/dL POC Glucose 164 H D 165 H (80-116) mg/dL Calcium (8.6-10.2) mg/dL NT-Pro-B Natriuret Pep (<=450) pg/mL Free T4 0.70 L (0.93-1.70) ng/dL 04/23/17 04/24/17 04/24/17 Range/Units 20:31 05:15 06:52 Sodium (135-145) mmol/L Potassium (3.5-5.3) mmol/L Chloride (100-110) mmol/L Carbon Dioxide (21-32) mmol/L BUN (7-18) mg/dL Creatinine (0.55-1.02) mg/dL Est Cr Clr Drug Dosing mL/min Estimated GFR (MDRD) (>60) BUN/Creatinine Ratio (9-20) Glucose (80-116) mg/dL POC Glucose 238 H 130 H D (80-116) mg/dL Calcium (8.6-10.2) mg/dL NT-Pro-B Natriuret Pep 359 (<=450) pg/mL Free T4 (0.93-1.70) ng/dL 04/24/17 Range/Units 06:52 Sodium 142 (135-145) mmol/L Potassium 5.5 H (3.5-5.3) mmol/L Chloride 105 (100-110) mmol/L Carbon Dioxide 26 (21-32) mmol/L BUN 52 H (7-18) mg/dL Creatinine 1.8 H (0.55-1.02) mg/dL Est Cr Clr Drug Dosing 15.82 mL/min Estimated GFR (MDRD) 27 L (>60) BUN/Creatinine Ratio 28.9 H (9-20) Glucose 142 H (80-116) mg/dL POC Glucose (80-116) mg/dL Calcium 9.3 (8.6-10.2) mg/dL NT-Pro-B Natriuret Pep (<=450) pg/mL Free T4 (0.93-1.70) ng/dL Med Orders - Current: Current Medications Acetaminophen (Tylenol Extra Strength) 1,000 mg PO QID [facility] Last Admin: 04/24/17 08:31 Dose: 1,000 mg Aspirin (Halfprin) 81 mg PO DAILY [facility] Last Admin: 04/24/17 08:30 Dose: 81 mg Enoxaparin Sodium (Lovenox) 30 mg SUBCUT Q24H [facility] Last Admin: 04/23/17 20:27 Dose: 30 mg Furosemide (Lasix) 20 mg PO DAILY [facility] Last Admin: 04/24/17 08:31 Dose: 20 mg Magnesium Hydroxide (Milk Of Magnesia) 30 ml PO Q12H PRN PRN Reason: Constipation Melatonin (Melatonin) 6 mg PO BEDTIME PRN PRN Reason: Insomnia Multivitamins/Minerals/Vitamin C (Tab-A-Jodie) 1 tab PO DAILY [facility] Last Admin: 04/24/17 08:31 Dose: 1 tab Ondansetron HCl (Zofran) 4 mg IV Q4H PRN PRN Reason: Nausea/Vomiting Sodium Chloride (Saline Flush) 10 ml FLUSH ASDIRECTED PRN PRN Reason: Keep Vein Open Discontinued Medications Amitriptyline HCl (Elavil) 10 mg PO BEDTIME PRN PRN Reason: nerve pain Last Admin: 04/22/17 01:31 Dose: 10 mg Amlodipine Besylate (Norvasc) 10 mg PO DAILY [facility] Last Admin: 04/21/17 08:59 Dose: 10 mg Enoxaparin Sodium (Lovenox) 40 mg SUBCUT Q24H [facility] Last Admin: 04/20/17 23:45 Dose: Not Given Furosemide (Lasix) 40 mg IVPUSH DAILY [facility] Last Admin: 04/20/17 23:46 Dose: Not Given Furosemide (Lasix) 40 mg IVPUSH DAILY [facility] Last Admin: 04/21/17 08:59 Dose: 40 mg Insulin Aspart (Novolog Mix 70-30) 40 unit SUBCUT BIDMEALS [facility] Last Admin: 04/22/17 17:21 Dose: 40 units - Exam Quality Assessment: No: Supplemental Oxygen General: Alert HEENT: Pupils Equal Neck: +2 Carotid Pulse wo Bruit Lungs: Clear to Auscultation Cardiovascular: Regular Rate - Problem List & Annotations (1) Frequent falls SNOMED Code(s): 250220253 Code(s): R29.6 - REPEATED FALLS Status: Acute Current Visit: Yes (2) Weakness SNOMED Code(s): 64172963 Code(s): R53.1 - WEAKNESS Status: Acute Current Visit: Yes (3) Unable to ambulate SNOMED Code(s): 420674164 Code(s): R26.2 - DIFFICULTY IN WALKING, NOT ELSEWHERE CLASSIFIED Status: Acute Current Visit: No (4) CKD stage 3 due to type 2 diabetes mellitus SNOMED Code(s): 074155993131 Code(s): E11.22 - TYPE 2 DIABETES MELLITUS W DIABETIC CHRONIC KIDNEY DISEASE ; N18.3 - CHRONIC KIDNEY DISEASE, STAGE 3 (MODERATE) Status: Chronic Current Visit: No (5) HTN (hypertension) SNOMED Code(s): 61048752 Code(s): I10 - ESSENTIAL (PRIMARY) HYPERTENSION Status: Chronic Current Visit: No Qualifiers: Hypertension type: unspecified Qualified Code(s): I10 - Essential (primary ) hypertension Annotation/Comment:: Continue current meds. (6) Multiple sclerosis SNOMED Code(s): 52784325 Code(s): G35 - MULTIPLE SCLEROSIS Status: Chronic Current Visit: No (7) Obesities, morbid SNOMED Code(s): 681153609 Code(s): E66.01 - MORBID (SEVERE) OBESITY DUE TO EXCESS CALORIES Status: Acute Current Visit: Yes (8) Hyperkalemia SNOMED Code(s): 81284934 Code(s): E87.5 - HYPERKALEMIA Status: Acute Current Visit: Yes - Problem List Review Problem List Initiated/Reviewed/Updated: Yes - Plan Plan:: Patient still weak and unable to support herself independently. I recommended discharge to swing bed for physical rehabilitation. I will start glipizide in place of the insulin for diabetes.
[2017-04-24 10:04] VITALS: BP 135/57
--- NOTE | 2017-04-25 05:58 | DISCH ---
DISCHARGE DATE: 04/24/2017 REASON FOR ADMISSION: 1. Repeated falls. 2. History of MS. 3. Type 2 diabetes. 4. Hypertension. 5. Chronic kidney disease. 6. Obesity. DISCHARGE DIAGNOSES: 1. Repeated falls. 2. History of multiple sclerosis. 3. Type 2 diabetes. 4. Hypertension. 5. Chronic kidney disease. 6. Obesity. 7. Generalized weakness. 8. Physical deconditioning. CONSULTATIONS: Physical Therapy. BRIEF HISTORY: This is an 86-year-old female admitted because of frequent falls, unable to support herself complaining that her legs gave out. She was admitted on the . She has a history of chronic kidney disease with a baseline creatinine of 1.9. On admission it was 2.0. She has type 2 diabetes usually on insulin, but no oral medications. She lives at [facility]. She had some hypoglycemic events in the hospital. Insulin was stopped, on discharge I started glipizide. Creatinine remained at 2.5. She had a high potassium of 5.8 before discharge. However, furosemide was started at 20 mg orally once a day. She was too weak to go back to [facility] on discharge therefore was discharged to Swing Bed for strengthening and rehab. Her blood pressure remained in the 140s-50s systolic despite no medications. We will continue to observe that in the Swing Bed. DISCHARGE MEDICATIONS: 1. Lasix 20 mg once a day. 2. Glipizide 5 mg a day. 3. Melatonin 6 mg at night. 4. I stopped amitriptyline and amlodipine because of possible side effects. Please note that I spent more than 30 minutes in the discharge of this patient. /[id number] ESTHER/BLOSSOM
== END 2017-04-24 09:45 | disposition swing bed (61) | DRG 92 ==
LOC: FB.ED 14:25 → FB.MS 18:10
PROVIDERS: ADMIT Emergency Medicine; ATTEND Family Medicine
DX: R29.6 Repeated falls (principal); I13.0 Hypertensive heart and chronic kidney disease with heart failure and stage 1 through stage 4 chronic kidney disease, or unspecified chronic kidney disease; I50.9 Heart failure, unspecified; N18.3 Chronic kidney disease, stage 3 (moderate); E11.22 Type 2 diabetes mellitus with diabetic chronic kidney disease; Z79.4 Long term (current) use of insulin; G35 Multiple sclerosis; R94.5 Abnormal results of liver function studies; Z66 Do not resuscitate; Z87.891 Personal history of nicotine dependence; R79.1 Abnormal coagulation profile; R53.81 Other malaise; R26.2 Difficulty in walking, not elsewhere classified; R53.1 Weakness; Z79.84 Long term (current) use of oral hypoglycemic drugs; Z79.82 Long term (current) use of aspirin; E87.5 Hyperkalemia; E66.01 Morbid (severe) obesity due to excess calories; Z68.39 Body mass index [BMI] 39.0-39.9, adult; M54.9 Dorsalgia, unspecified; G89.29 Other chronic pain; E78.00 Pure hypercholesterolemia, unspecified; Z87.440 Personal history of urinary (tract) infections; H91.90 Unspecified hearing loss, unspecified ear; Z96.659 Presence of unspecified artificial knee joint; M17.0 Bilateral primary osteoarthritis of knee
CPT/HCPCS: 36415; 70450; 71046; 73562-LT; 73562-RT; 76705; 80048; 80053; 81001; 82947; 82962; 83036; 83735; 83880; 84132; 84439; 84443; 84484; 85025; 85379; 86140; 93005; 93306; 93970; 93971-RT; 97110-GO; 97110-GP; 97116-GP; 97161-GP; 97165-GO; 97530-GO; 99284; A9270-GY; J1650; J1940

== ENCOUNTER 2017-04-24 10:01 | Inpatient (IN) | payer MEDICARE ==
[2017-04-24] MEDS: Acetaminophen 325 MG Tab PO PRN (21:00)
[2017-04-24] MEDS: Melatonin 3 MG Tab PO PRN (21:00)
[2017-04-25] MEDS: glipiZIDE 5 MG Tab.ER PO SCH (08:05)
[2017-04-25] MEDS: Aspirin 81 MG Tab.EC PO SCH (08:05)
[2017-04-25] MEDS: Furosemide 20 MG Tab PO SCH (08:05)
[2017-04-25] MEDS: Multivitamin Tab PO SCH (08:05)
[2017-04-26] MEDS: Acetaminophen 325 MG Tab PO PRN ×2 (02:51→22:31)
[2017-04-26] MEDS: Melatonin 3 MG Tab PO PRN ×2 (02:51→22:31)
[2017-04-26] MEDS: Aspirin 81 MG Tab.EC PO SCH (08:25)
[2017-04-26] MEDS: Multivitamin Tab PO SCH (08:25)
[2017-04-26] MEDS: glipiZIDE 5 MG Tab.ER PO SCH (08:25)
[2017-04-26] MEDS: Furosemide 20 MG Tab PO SCH (08:25)
[2017-04-27] MEDS: Aspirin 81 MG Tab.EC PO SCH (08:42)
[2017-04-27] MEDS: Furosemide 20 MG Tab PO SCH (08:42)
[2017-04-27] MEDS: glipiZIDE 5 MG Tab.ER PO SCH (08:42)
[2017-04-27] MEDS: Multivitamin Tab PO SCH (08:43)
--- NOTE | 2017-04-27 08:59 | PCM.HP ---
H&P History of Present Illness - General Date of Service: 04/27/17 Admit Problem/Dx: Admission Diagnosis/Problem Admission Diagnosis/Problem Weakness Source of Information: Patient, Old Records - History of Present Illness Initial Comments - Free Text/Narative: Kathy is an 86-year-old from [facility] ,admitted to swing bed for rehabilitation due to frequent falls.. She has type 2 diabetes stable, hypertension well-controlled remote history of MS, and recent frequent falls. In the hospital, antihypertensives and insulin were discontinued. She is admitted for rehabilitation and strengthening with physical therapy. Sugars of been up and down last latest being 180 this morning. Blood pressures been stable off the Norvasc. In the aftercare, she had showed signs CHF, and Lasix 20 mg a day was initiated. She does have chronic kidney disease with baseline creatinine 1.9. Her shortness of breath improved markedly on Lasix. denies Pain Score (Numeric/FACES): 0 Right leg/knee Pain Score (Numeric/FACES): 4 asleep Pain Score (Numeric/FACES): 0 - Related Data Allergies/Adverse Reactions: Allergies Allergy/AdvReac Type Severity Reaction Status Date / Time No Known Allergies Allergy Verified 04/20/17 14:58 Home Medications: Home Meds Multivitamin [One Daily] 1 tab PO DAILY 12/21/16 [History] Acetaminophen [Tylenol] 650 mg PO Q4H PRN tablet 12/28/16 [Rx] Aspirin [Adult Low Dose Aspirin EC] 81 mg PO DAILY #90 tablet.dr 12/28/16 [Rx] Furosemide [Lasix] 20 mg PO DAILY #30 tablet 04/24/17 [Rx] Melatonin 6 mg PO BEDTIME PRN #30 tablet 04/24/17 [Rx] glipiZIDE [Glipizide Xl] 5 mg PO DAILY #30 tab.er.24 04/24/17 [Rx] Past Medical History HEENT History: Reports: Cataract, Hard of Hearing Cardiovascular History: Reports: High Cholesterol, Hypertension, SOB on Exertion Respiratory History: Reports: SOB Genitourinary History: Reports: UTI, 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 , , Other (See Below) Other OB/BYN History: several miscarriages Musculoskeletal History: Reports: Back Pain, Chronic Neurological History: Reports: MS Endocrine/Metabolic History: Reports: Diabetes, Type II, Obesity/BMI 30+ - Infectious Disease History Infectious Disease History: Reports: Chicken Pox - Past Surgical History HEENT Surgical History: Reports: Cataract Surgery Other HEENT Surgeries/Procedures: B/L cataract surgery in 2014 GI Surgical History: Reports: Appendectomy, Cholecystectomy Female Surgical History: Reports: Tubal Ligation Musculoskeletal Surgical History: Reports: Knee Replacement, Other (See Below) Other Musculoskeletal Surgeries/Procedures:: right Social & Family History - Family History Family Medical History: Noncontributory - Tobacco Use Smoking Status *Q: Former Smoker Years of Tobacco use: 30 Used Tobacco, but Quit: Yes Month/Year Tobacco Last Used: February Second Hand Smoke Exposure: No - Caffeine Use Caffeine Use: Reports: Coffee Other Caffeine Use: 2 cups/day - Alcohol Use Days Per Week of Alcohol Use: 0 - Recreational Drug Use Recreational Drug Use: No H&P Review of Systems - Review of Systems: Review Of Systems: ROS reveals no pertinent complaints other than HPI. Exam - Exam Exam: See Below - Vital Signs Vital Signs: Last Vital Signs Temp 98.0 F 04/27/17 08:00 Pulse 71 04/27/17 08:00 Resp 19 04/27/17 08:00 BP 141/79 H 04/27/17 08:00 Pulse Ox 92 L 04/27/17 08:00 Weight: 96.116 kg - Exam General: Alert, Oriented, 4 HEENT: PERRLA, Hearing Intact, Mucosa Moist & [place], Nares Patent, Normal Nasal Septum, Posterior Pharynx Clear, Conjunctiva Clear, EOMI, EACs Clear, TMs Clear Neck: Supple, Trachea Midline, 2 Lungs: Clear to Auscultation, Normal Respiratory Effort Cardiovascular: Regular Rate, Regular Rhythm GI/Abdominal Exam: Normal Bowel Sounds, Soft, Non-Tender, No Organomegaly, No Distention, No Abnormal Bruit, No Mass, Pelvis Stable (Female) Exam: Deferred Rectal (Female) Exam: Deferred Back Exam: Normal Inspection, Full Range of Motion, NT Extremities: Normal Inspection, Normal Range of Motion, Non-Tender, No Pedal Edema, Normal Capillary Refill Skin: Warm, Dry, Intact Neurological: Cranial Nerves Intact, Reflexes Equal Bilateral Neuro Extensive - Mental Status: Alert, Oriented x3, Normal Mood/Affect, Normal Cognition Neuro Extensive - Motor, Sensory, Reflexes: CN II-XII Intact, Normal Gait, Normal Reflexes Psychiatric: Alert, Normal Affect, Normal Mood - Patient Data Lab Results Last 24 hrs: Laboratory Results - last 24 hr 04/26/17 04/27/17 Range/Units 16:58 07:51 POC Glucose 204 H 188 H (80-116) mg/dL *Q Meaningful Use (ADM) - VTE *Q VTE Criteria *Q: - Stroke *Q Stroke Criteria *Q: - AMI *Q AMI Criteria *Q: - Problem List (1) Fall from standing SNOMED Code(s): 9500531 ICD Code: W19.XXXA - UNSPECIFIED FALL, INITIAL ENCOUNTER Status: Acute Current Visit: No (2) Obesities, morbid SNOMED Code(s): 863368397 ICD Code: E66.01 - MORBID (SEVERE) OBESITY DUE TO EXCESS CALORIES Status: Acute Current Visit: No (3) Type 2 DM with CKD and hypertension SNOMED Code(s): 38038161 ICD Code: E11.22 - TYPE 2 DIABETES MELLITUS W DIABETIC CHRONIC KIDNEY DISEASE ; I12.9 - HYPERTENSIVE CHRONIC KIDNEY DISEASE W STG 1-4/UNSP CHR KDNY Status: Acute Current Visit: No (4) CKD stage 3 due to type 2 diabetes mellitus SNOMED Code(s): 213085447229 ICD Code: E11.22 - TYPE 2 DIABETES MELLITUS W DIABETIC CHRONIC KIDNEY DISEASE ; N18.3 - CHRONIC KIDNEY DISEASE, STAGE 3 (MODERATE) Status: Chronic Current Visit: No (5) HTN (hypertension) SNOMED Code(s): 84911581 ICD Code: I10 - ESSENTIAL (PRIMARY) HYPERTENSION Status: Chronic Current Visit: No Problem Details: Hold off meds Qualifiers: Hypertension type: essential hypertension Qualified Code(s): I10 - Essential (primary) hypertension (6) Hyperlipidemia SNOMED Code(s): 49850270 ICD Code: E78.5 - HYPERLIPIDEMIA, UNSPECIFIED Status: Chronic Current Visit: No Problem Details: Untreated because of age. Qualifiers: (7) Multiple sclerosis SNOMED Code(s): 95013165 ICD Code: G35 - MULTIPLE SCLEROSIS Status: Chronic Current Visit: No (8) General weakness SNOMED Code(s): 40523386 ICD Code: R53.1 - WEAKNESS Status: Acute Current Visit: Yes Problem List Initiated/Reviewed/Updated: Yes Orders Last 24hrs: Medication Orders Acetaminophen (Tylenol) 650 mg PO Q4H PRN PRN Reason: FEVER/PAIN Last Admin: 04/26/17 22:31 Dose: 650 mg Admin: 04/26/17 02:51 Dose: 650 mg Admin: 04/24/17 21:00 Dose: 650 mg Aspirin (Halfprin) 81 mg PO DAILY [facility] Last Admin: 04/27/17 08:42 Dose: 81 mg Admin: 04/26/17 08:25 Dose: 81 mg Admin: 04/25/17 08:05 Dose: 81 mg Furosemide (Lasix) 20 mg PO DAILY [facility] Last Admin: 04/27/17 08:42 Dose: 20 mg Admin: 04/26/17 08:25 Dose: 20 mg Admin: 04/25/17 08:05 Dose: 20 mg Glipizide (Glucotrol Xl) 5 mg PO DAILY [facility] Last Admin: 04/27/17 08:42 Dose: 5 mg Admin: 04/26/17 08:25 Dose: 5 mg Admin: 04/25/17 08:05 Dose: 5 mg Melatonin (Melatonin) 6 mg PO BEDTIME PRN PRN Reason: Insomnia Last Admin: 04/26/17 22:31 Dose: 6 mg Admin: 04/26/17 02:51 Dose: 6 mg Admin: 04/24/17 21:00 Dose: 6 mg Multivitamins/Minerals/Vitamin C (Tab-A-Jodie) 1 tab PO DAILY [facility] Last Admin: 04/27/17 08:43 Dose: 1 tab Admin: 04/26/17 08:25 Dose: 1 tab Admin: 04/25/17 08:05 Dose: 1 tab Assessment/Plan Comment:: Keep an eye on blood sugar, and blood pressure. Hold off Norvasc and insulin but continued Glucotrol and Lasix. Also Continue with physical and occupational therapy with an aim of returning to independent living facility.
[2017-04-27] MEDS: Melatonin 3 MG Tab PO PRN (21:10)
[2017-04-28] MEDS: Multivitamin Tab PO SCH (08:34)
[2017-04-28] MEDS: Aspirin 81 MG Tab.EC PO SCH (08:35)
[2017-04-28] MEDS: glipiZIDE 5 MG Tab.ER PO SCH (08:35)
[2017-04-28] MEDS: Furosemide 20 MG Tab PO SCH (08:35)
[2017-04-28] MEDS: Melatonin 3 MG Tab PO PRN (22:20)
[2017-04-29] MEDS: glipiZIDE 5 MG Tab.ER PO SCH (09:02)
[2017-04-29] MEDS: Furosemide 20 MG Tab PO SCH (09:03)
[2017-04-29] MEDS: Aspirin 81 MG Tab.EC PO SCH (09:03)
[2017-04-29] MEDS: Multivitamin Tab PO SCH (09:03)
[2017-04-29] MEDS: Insuln Aspart Prot/Insulin Aspart 100 Units/ML 3 ML FlexPen SUBCUT SCH ×2 (10:55→18:40)
--- NOTE | 2017-04-29 12:03 | PCM.PN ---
- General Info Date of Service: 04/29/17 Subjective Update: Patient is an 86-year-old female admitted to [facility] on 04/20/17 and discharged to swing bed status on 04/24/17 for weakness and falls. The patient was initially admitted because she was weak and had fallen. She was found to have slight worsening of her renal function but no other real etiology was found for her weakness. Of note during her hospital stay her potassium went up from 4.6-6 and then back down again into the normal range. It's not clear to me from the hospital notes why this was. She was admitted to swing bed on 04/24/17 and has done very well with physical therapy and occupational therapy. She is feeling very well today. No chest pain, no shortness of breath, no nausea, no vomiting, no problems with her bowels. Her only concern is that she was changed over to oral glipizide for her diabetes off her 75/25 Humalog and this doesn't seem to be controlling her blood sugars. They've been consistently above 200. Her last A1c as an outpatient was 6.1% which likely reflects blood sugars that are too low in the outpatient setting which may be contributing to her weakness. During her hospital stay, the question was raised of possible congestive heart failure. Patient was started on Lasix 20 mg by mouth daily which she seems to be doing well on. Echocardiogram 04/21/17 showed ejection fraction 55%, grade 1 left ventricular diastolic dysfunction. Basal inferior and mid inferior wall segments hypokinetic. - Patient Data Vitals - Most Recent: Last Vital Signs Temp 36.3 C 04/29/17 08:05 Pulse 85 04/29/17 08:05 Resp 22 H 04/29/17 08:05 BP 118/66 04/29/17 08:05 Pulse Ox 96 04/29/17 08:05 Weight - Most Recent: 96.116 kg Lab Results Last 24 Hours: Laboratory Results - last 24 hr 04/28/17 04/29/17 04/29/17 Range/Units 17:33 06:34 08:00 WBC 6.3 (4.5-12.0) X10-3/uL RBC 3.86 (3.23-5.20) x10(6)uL Hgb 11.5 (11.5-15.5) g/dL Hct 34.0 (30.0-51.3) % MCV 88.0 (80-96) fL MCH 29.9 (27.7-33.6) pg MCHC 33.9 (32.2-35.4) g/dL RDW 12.2 (11.5-15.5) % Plt Count 336 (125-369) X10(3)uL MPV 7.1 L (7.4-10.4) fL Neut % (Auto) 56.6 (46-82) % Lymph % (Auto) 26.0 (13-37) % [place] % (Auto) 12.0 (4-12) % Eos % (Auto) 5 (1.0-5.0) % Baso % (Auto) 1 (0-2) % Neut # (Auto) 3.6 (1.6-8.3) # Lymph # (Auto) 1.6 (0.6-5.0) # [place] # (Auto) 0.8 (0.0-1.3) # Eos # (Auto) 0.3 (0.0-0.8) # Baso # (Auto) 0.0 (0.0-0.2) # Sodium (135-145) mmol/L Potassium (3.5-5.3) mmol/L Chloride (100-110) mmol/L Carbon Dioxide (21-32) mmol/L BUN (7-18) mg/dL Creatinine (0.55-1.02) mg/dL Est Cr Clr Drug Dosing mL/min Estimated GFR (MDRD) (>60) BUN/Creatinine Ratio (9-20) Glucose (80-116) mg/dL POC Glucose 199 H 205 H (80-116) mg/dL Calcium (8.6-10.2) mg/dL Total Bilirubin (0.1-1.3) mg/dL AST (5-25) IU/L ALT (12-36) U/L Alkaline Phosphatase (56-112) IU/L Total Protein (6.0-8.0) g/dL Albumin (3.2-4.6) g/dL Globulin g/dL Albumin/Globulin Ratio 04/29/18 Range/Units 08:00 WBC (4.5-12.0) X10-3/uL RBC (3.23-5.20) x10(6)uL Hgb (11.5-15.5) g/dL Hct (30.0-51.3) % MCV (80-96) fL MCH (27.7-33.6) pg MCHC (32.2-35.4) g/dL RDW (11.5-15.5) % Plt Count (125-369) X10(3)uL MPV (7.4-10.4) fL Neut % (Auto) (46-82) % Lymph % (Auto) (13-37) % [place] % (Auto) (4-12) % Eos % (Auto) (1.0-5.0) % Baso % (Auto) (0-2) % Neut # (Auto) (1.6-8.3) # Lymph # (Auto) (0.6-5.0) # [place] # (Auto) (0.0-1.3) # Eos # (Auto) (0.0-0.8) # Baso # (Auto) (0.0-0.2) # Sodium 140 (135-145) mmol/L Potassium 4.6 (3.5-5.3) mmol/L Chloride 104 (100-110) mmol/L Carbon Dioxide 28 (21-32) mmol/L BUN 48 H (7-18) mg/dL Creatinine 1.7 H (0.55-1.02) mg/dL Est Cr Clr Drug Dosing 16.75 mL/min Estimated GFR (MDRD) 28 L (>60) BUN/Creatinine Ratio 28.2 H (9-20) Glucose 242 H D (80-116) mg/dL POC Glucose (80-116) mg/dL Calcium 9.5 (8.6-10.2) mg/dL Total Bilirubin 0.3 (0.1-1.3) mg/dL AST 20 D (5-25) IU/L ALT 32 D (12-36) U/L Alkaline Phosphatase 56 (56-112) IU/L Total Protein 6.7 (6.0-8.0) g/dL Albumin 2.9 L (3.2-4.6) g/dL Globulin 3.8 g/dL Albumin/Globulin Ratio 0.8 Med Orders - Current: Current Medications Acetaminophen (Tylenol) 650 mg PO Q4H PRN PRN Reason: FEVER/PAIN Last Admin: 04/26/17 22:31 Dose: 650 mg Aspirin (Halfprin) 81 mg PO DAILY [facility] Last Admin: 04/29/17 09:03 Dose: 81 mg Furosemide (Lasix) 20 mg PO DAILY [facility] Last Admin: 04/29/17 09:03 Dose: 20 mg Insulin Aspart (Novolog Mix 70-30) 25 unit SUBCUT BIDMEALS [facility] Last Admin: 04/29/17 10:55 Dose: 25 units Melatonin (Melatonin) 6 mg PO BEDTIME PRN PRN Reason: Insomnia Last Admin: 04/28/17 22:20 Dose: 6 mg Multivitamins/Minerals/Vitamin C (Tab-A-Jodie) 1 tab PO DAILY [facility] Last Admin: 04/29/17 09:03 Dose: 1 tab Discontinued Medications Glipizide (Glucotrol Xl) 5 mg PO DAILY [facility] Last Admin: 04/29/17 09:02 Dose: 5 mg - Exam General: Alert, Oriented, Cooperative, No Acute Distress HEENT: Pupils Equal, Pupils Reactive Neck: Supple Lungs: Clear to Auscultation, Normal Respiratory Effort Cardiovascular: Regular Rate, Regular Rhythm, No Murmurs GI/Abdominal Exam: Normal Bowel Sounds, Soft, Non-Tender Extremities: Pedal Edema (Trace.) Psy/Mental Status: Alert, Normal Affect, Normal Mood - Problem List & Annotations (1) Frequent falls SNOMED Code(s): 079943457 Code(s): R29.6 - REPEATED FALLS Status: Acute Current Visit: No Annotation/Comment:: Patient doing well with physical therapy and occupational therapy. Anticipate discharge early next week. (2) Acute exacerbation of congestive heart failure SNOMED Code(s): 26930069 Code(s): I50.9 - HEART FAILURE, UNSPECIFIED Status: Acute Current Visit: No Qualifiers: Heart failure type: diastolic Qualified Code(s): I50.33 - Acute on chronic diastolic (congestive) heart failure Annotation/Comment:: Patient was started on Lasix 20 mg by mouth daily which she seems to be doing well on. Echocardiogram 04/21/17 showed ejection fraction 55 %, grade 1 left ventricular diastolic dysfunction. Basal inferior and mid inferior wall segments hypokinetic. (3) Hyperkalemia SNOMED Code(s): 20947407 Code(s): E87.5 - HYPERKALEMIA Status: Acute Current Visit: No Annotation/Comment:: Recheck potassium tomorrow. (4) Type 2 DM with CKD and hypertension SNOMED Code(s): 95528682 Code(s): E11.22 - TYPE 2 DIABETES MELLITUS W DIABETIC CHRONIC KIDNEY DISEASE ; I12.9 - HYPERTENSIVE CHRONIC KIDNEY DISEASE W STG 1-4/UNSP CHR KDNY Status: Acute Current Visit: No Annotation/Comment:: We will start the patient 75/ 25 Humalog today at 25 units twice a day with meals which is almost half of her previous 40 unit dose. Discussed the importance of avoiding lows with the patient. (5) Multiple sclerosis SNOMED Code(s): 97407525 Code(s): G35 - MULTIPLE SCLEROSIS Status: Chronic Current Visit: No Annotation/Comment:: Patient notes that this is continuing limiting factor to her underlying weakness and falls. Appears to be quiescent at this time as she has no advancing symptoms. (6) CKD stage 3 due to type 2 diabetes mellitus SNOMED Code(s): 516471491715 Code(s): E11.22 - TYPE 2 DIABETES MELLITUS W DIABETIC CHRONIC KIDNEY DISEASE ; N18.3 - CHRONIC KIDNEY DISEASE, STAGE 3 (MODERATE) Status: Chronic Current Visit: No Annotation/Comment:: Recheck tomorrow. - Problem List Review Problem List Initiated/Reviewed/Updated: Yes - My Orders Last 24 Hours: My Active Orders 04/29/17 10:45 Insuln Asp Prot/Insulin Aspart [NovoLOG Mix 70-30] 25 unit SUBCUT BIDMEALS
[2017-04-29] MEDS: Melatonin 3 MG Tab PO PRN (21:18)
[2017-04-30] MEDS: Aspirin 81 MG Tab.EC PO SCH (08:34)
[2017-04-30] MEDS: Furosemide 20 MG Tab PO SCH (08:35)
[2017-04-30] MEDS: Multivitamin Tab PO SCH (08:35)
[2017-04-30] MEDS: Insuln Aspart Prot/Insulin Aspart 100 Units/ML 3 ML FlexPen SUBCUT SCH ×2 (08:58→17:43)
--- NOTE | 2017-04-30 13:21 | PCM.SN ---
- Free Text/Narrative Note: Patient is an 86-year-old female admitted for weakness and falls to swing bed status on the 12th, currently on swing bed day #7. The patient's blood sugar last evening after restarting her insulin at 25 units twice a day which was a decrease from her 40 unit dose at home, so resulted in a 66 blood sugar at supper. Her insulin this morning I decreased to 10 units twice a day. The patient hopes to be discharged home tomorrow.
[2017-04-30] MEDS: Melatonin 3 MG Tab PO PRN (21:23)
[2017-05-01] MEDS: Furosemide 20 MG Tab PO SCH (08:20)
[2017-05-01] MEDS: Insuln Aspart Prot/Insulin Aspart 100 Units/ML 3 ML FlexPen SUBCUT SCH (08:20)
[2017-05-01] MEDS: Multivitamin Tab PO SCH (08:20)
[2017-05-01] MEDS: Aspirin 81 MG Tab.EC PO SCH (08:20)
[2017-05-01 09:44] VITALS: BP 154/59
--- NOTE | 2017-05-01 11:33 | PCM.DCSUM1 ---
Discharge Summary - Hospital Course Free Text/Narrative:: Date of admission: 04/24/17 Date of discharge: 05/01 2017 Admission diagnosis: Debility after hospitalization Discharge diagnosis: Same Secondary diagnoses: See below. History of present illness: Patient is an 86-year-old female admitted to [facility] on 04/20/17 and discharged to swing bed status on 04/24/17 for weakness and falls. The patient was initially admitted because she was weak and had fallen. She was found to have slight worsening of her renal function but no other real etiology was found for her weakness. Of note during her hospital stay her potassium went up from 4.6 to 6 and then back down again into the normal range. It's not clear to me from the hospital notes why this was. She was admitted to swing bed on . Hospital course: Patient did very well with physical therapy and occupational therapy. The patient had been changed from insulin to glipizide but this was inadequate to control her blood sugars so changed back to 75/25 insulin at a significantly lower dose. Came in at 45 units twice a day, will be discharged on 10 units twice a day. - Discharge Data Discharge Date: 05/01/17 Discharge Disposition: Home, Self-Care 01 Condition: Good - Discharge Diagnosis/Problem(s) (1) Frequent falls SNOMED Code(s): 097707737 ICD Code: R29.6 - REPEATED FALLS Status: Acute Current Visit: No Problem Details: Ready for discharge. With patient's recurrent hospitalizations , I question whether or not she has adequate support in her independent living environment. Consider outpatient assessment for assisted living or fdc placement. (2) Acute exacerbation of congestive heart failure SNOMED Code(s): 35147315 ICD Code: I50.9 - HEART FAILURE, UNSPECIFIED Status: Acute Current Visit : No Problem Details: Continue Lasix 20 mg by mouth daily. Echocardiogram showed ejection fraction 55%, grade 1 left ventricular diastolic dysfunction. Basal inferior and mid inferior wall segments hypokinetic. Qualifiers: Heart failure type: diastolic Qualified Code(s): I50.33 - Acute on chronic diastolic (congestive) heart failure (3) Hyperkalemia SNOMED Code(s): 93924182 ICD Code: E87.5 - HYPERKALEMIA Status: Acute Current Visit: No Problem Details: Potassium 4.3 at discharge. (4) Type 2 DM with CKD and hypertension SNOMED Code(s): 63235303 ICD Code: E11.22 - TYPE 2 DIABETES MELLITUS W DIABETIC CHRONIC KIDNEY DISEASE ; I12.9 - HYPERTENSIVE CHRONIC KIDNEY DISEASE W STG 1-4/UNSP CHR KDNY Status: Acute Current Visit: No Problem Details: Previously on 75/25 Humalog 40 units twice a day. Her low A1c reflects too tight of control for this age of the patient. Would suggest considering alternative medication such as Januvia with long-acting insulin or the patient may not require insulin. At this point I 'm discharging her home on 75/25 10 units twice a day. (5) Multiple sclerosis SNOMED Code(s): 56317761 ICD Code: G35 - MULTIPLE SCLEROSIS Status: Chronic Current Visit: No Problem Details: Patient notes that this is continuing limiting factor to her underlying weakness and falls. Appears to be quiescent at this time as she has no advancing symptoms. (6) CKD stage 3 due to type 2 diabetes mellitus SNOMED Code(s): 695786041529 ICD Code: E11.22 - TYPE 2 DIABETES MELLITUS W DIABETIC CHRONIC KIDNEY DISEASE ; N18.3 - CHRONIC KIDNEY DISEASE, STAGE 3 (MODERATE) Status: Chronic Current Visit: No Problem Details: Stable, Cr at discharge 1.6. (7) Anemia SNOMED Code(s): 940978444 ICD Code: D64.9 - ANEMIA, UNSPECIFIED Status: Acute Current Visit: Yes Problem Details: Hemoglobin on admission to swing bed was 11.7. At discharge was 11.1. Will defer further evaluation/treatment to PCP. - Patient Summary/Data Consults: Consultations 04/24/17 11:20 OT Evaluation and Treatment [CONS] Routine Please Evaluate and Treat. OT Reason for Consult: ADL's This query below is only for informational purposes and is not editable. PT Evaluation and Treatment [CONS] Routine Please Evaluate and Treat. PT Reason for Consult: Ambulation This query below is only for informational purposes and is not editable. - Patient Instructions Diet: Heart Healthy Diet, Diabetic Diet Other/Special Instructions: Follow-up with your primary care provider within the next week for diabetes management, new lasix management and to check your potassium and kidney function. - Discharge Plan Prescriptions/Med Rec: Furosemide [Lasix] 20 mg PO DAILY #30 tablet Home Medications: Home Meds Multivitamin [One Daily] 1 tab PO DAILY 12/21/16 [History] Acetaminophen [Tylenol] 650 mg PO Q4H PRN tablet 12/28/16 [Rx] Aspirin [Adult Low Dose Aspirin EC] 81 mg PO DAILY #90 tablet. 12/28/16 [Rx] Melatonin 6 mg PO BEDTIME PRN #30 tablet 04/24/17 [Rx] Furosemide [Lasix] 20 mg PO DAILY #30 tablet 05/01/17 [Rx] Insuln Asp Prot/Insulin Aspart [NovoLOG Mix 70-30] 10 unit SUBCUT BIDMEALS pen 05/01/17 [Rx] Multivitamins [Tab-A-Jodie] 1 tab PO DAILY tablet 05/01/17 [Rx] Patient Handouts: Hypertension, Gfal-pa-Umen, Fall Prevention in Hospitals, Adult, Venous Thromboembolism Prevention - Discharge Summary/Plan Comment DC Time >30 min.: Yes - General Info Date of Service: 05/01/17 Subjective Update: On the day of discharge, patient was feeling very well. No chest pain, no shortness of breath, no nausea, no vomiting, no diarrhea. Pedal edema much improved with her Lasix. - Patient Data Vitals - Most Recent: Last Vital Signs Temp 36.3 C 05/01/17 07:53 Pulse 64 05/01/17 07:53 Resp 18 05/01/17 07:53 BP 154/59 H 05/01/17 07:53 Pulse Ox 92 L 05/01/17 07:53 Weight - Most Recent: 96.116 kg Lab Results - Last 24 hrs: Laboratory Results - last 24 hr 04/30/17 05/01/17 05/01/17 Range/Units 17:08 05:20 06:40 Hgb 11.1 L (11.5-15.5) g/dL Sodium (135-145) mmol/L Potassium (3.5-5.3) mmol/L Chloride (100-110) mmol/L Carbon Dioxide (21-32) mmol/L BUN (7-18) mg/dL Creatinine (0.55-1.02) mg/dL Est Cr Clr Drug Dosing mL/min Estimated GFR (MDRD) (>60) BUN/Creatinine Ratio (9-20) Glucose (80-116) mg/dL POC Glucose 258 H D 207 H (80-116) mg/dL Calcium (8.6-10.2) mg/dL 05/01/17 Range/Units 06:40 Hgb (11.5-15.5) g/dL Sodium 142 (135-145) mmol/L Potassium 4.3 (3.5-5.3) mmol/L Chloride 105 (100-110) mmol/L Carbon Dioxide 29 (21-32) mmol/L BUN 45 H (7-18) mg/dL Creatinine 1.6 H (0.55-1.02) mg/dL Est Cr Clr Drug Dosing 17.79 mL/min Estimated GFR (MDRD) 30 L (>60) BUN/Creatinine Ratio 28.1 H (9-20) Glucose 209 H (80-116) mg/dL POC Glucose (80-116) mg/dL Calcium 9.5 (8.6-10.2) mg/dL Med Orders - Current: Current Medications Acetaminophen (Tylenol) 650 mg PO Q4H PRN PRN Reason: FEVER/PAIN Last Admin: 04/26/17 22:31 Dose: 650 mg Aspirin (Halfprin) 81 mg PO DAILY [facility] Last Admin: 05/01/17 08:20 Dose: 81 mg Furosemide (Lasix) 20 mg PO DAILY [facility] Last Admin: 05/01/17 08:20 Dose: 20 mg Insulin Aspart (Novolog Mix 70-30) 10 unit SUBCUT BIDMEALS [facility] Last Admin: 05/01/17 08:20 Dose: 10 unit Melatonin (Melatonin) 6 mg PO BEDTIME PRN PRN Reason: Insomnia Last Admin: 04/30/17 21:23 Dose: 6 mg Multivitamins/Minerals/Vitamin C (Tab-A-Jodie) 1 tab PO DAILY [facility] Last Admin: 05/01/17 08:20 Dose: 1 tab Discontinued Medications Glipizide (Glucotrol Xl) 5 mg PO DAILY [facility] Last Admin: 04/29/17 09:02 Dose: 5 mg Insulin Aspart (Novolog Mix 70-30) 25 unit SUBCUT BIDMEALS [facility] Last Admin: 04/30/17 08:58 Dose: Not Given - Exam General: Reports: Alert, Oriented, Cooperative HEENT: Reports: Pupils Equal, Pupils Reactive Lungs: Reports: Clear to Auscultation, Normal Respiratory Effort Cardiovascular: Reports: Regular Rate, Regular Rhythm, No Murmurs GI/Abdominal Exam: Normal Bowel Sounds, Soft, Non-Tender Extremities: Pedal Edema (Trace) Skin: Reports: Warm, Dry, Intact Psy/Mental Status: Reports: Alert, Normal Affect, Normal Mood *Q Meaningful Use (DIS) - VTE *Q VTE Criteria *Q: - Stroke *Q Stroke Criteria *Q: - AMI *Q AMI Criteria *Q:
== END 2017-05-01 13:00 | disposition home or self-care (01) | DRG 947 ==
LOC: FB.MS 10:01
PROVIDERS: ADMIT Family Medicine; ATTEND Family Medicine
DX: R53.1 Weakness (principal); I50.33 Acute on chronic diastolic (congestive) heart failure; I13.0 Hypertensive heart and chronic kidney disease with heart failure and stage 1 through stage 4 chronic kidney disease, or unspecified chronic kidney disease; R53.81 Other malaise; R29.6 Repeated falls; N18.3 Chronic kidney disease, stage 3 (moderate); E11.22 Type 2 diabetes mellitus with diabetic chronic kidney disease; Z79.4 Long term (current) use of insulin; Z87.891 Personal history of nicotine dependence; Z66 Do not resuscitate; G35 Multiple sclerosis; E78.5 Hyperlipidemia, unspecified; M54.9 Dorsalgia, unspecified; G89.29 Other chronic pain; Z87.440 Personal history of urinary (tract) infections; H91.90 Unspecified hearing loss, unspecified ear; D64.9 Anemia, unspecified; Z79.82 Long term (current) use of aspirin
CPT/HCPCS: 36415; 80048; 80053; 82962; 85018; 85025; 97110-GO; 97110-GP; 97112-GP; 97116-GP; 97530-GO; 97530-GP; 97535-GO; A9270-GY